=== PATIENT | male | born 1960 | race African-American/Black ===

== ENCOUNTER → 2021-01-07 13:01 | Outpatient (BNVA) | payer OTHER, SELFPAY | PROVIDERS: PCP Internal Medicine; Visit Provider Urology ==

== ENCOUNTER → 2021-03-19 12:24 | Outpatient (BNVA) | payer OTHER, SELFPAY | PROVIDERS: PCP Internal Medicine; Visit Provider Dietitian, Registered | DX: E66.9 Obesity, unspecified (principal); R73.03 Prediabetes | CPT/HCPCS: 97802 ==

== ENCOUNTER 2021-04-30 | Outpatient (REF) | payer OTHER, SELFPAY | END 2021-04-30 00:01 | disposition home or self-care (01) | LOC: CF | PROVIDERS: Visit Provider Dietitian, Registered | DX: R73.03 Prediabetes (principal); E66.9 Obesity, unspecified; I10 Essential (primary) hypertension; Z71.3 Dietary counseling and surveillance | CPT/HCPCS: 97803 ==

== ENCOUNTER → 2021-05-01 14:18 | Outpatient (BNVA) | payer OTHER, SELFPAY | PROVIDERS: PCP Internal Medicine; Visit Provider Dietitian, Registered | DX: R73.03 Prediabetes (principal); E66.9 Obesity, unspecified ==

== ENCOUNTER → 2021-05-01 14:18 | Outpatient (BNVA) | payer OTHER, SELFPAY | PROVIDERS: PCP Internal Medicine; Visit Provider Dietitian, Registered | DX: E66.9 Obesity, unspecified (principal); R73.03 Prediabetes | CPT/HCPCS: 97803 ==

== ENCOUNTER → 2021-06-18 12:58 | Outpatient (BNVA) | payer OTHER, SELFPAY | PROVIDERS: PCP Internal Medicine; Visit Provider Dietitian, Registered | DX: R73.03 Prediabetes (principal); E66.9 Obesity, unspecified | CPT/HCPCS: 97803 ==

== ENCOUNTER → 2021-08-03 10:31 | Outpatient (BNVA) | payer OTHER, SELFPAY | PROVIDERS: PCP Internal Medicine; Visit Provider Dietitian, Registered | DX: R73.03 Prediabetes (principal); E66.9 Obesity, unspecified | CPT/HCPCS: 97803 ==

== ENCOUNTER → 2021-08-12 15:54 | Outpatient (BNVA) | payer OTHER, SELFPAY | PROVIDERS: PCP Internal Medicine; Visit Provider Urology ==

== ENCOUNTER → 2021-09-07 10:40 | Outpatient (BNVA) | payer OTHER, SELFPAY | PROVIDERS: PCP Internal Medicine; Visit Provider Dietitian, Registered | DX: R73.03 Prediabetes (principal); E66.9 Obesity, unspecified; Z68.39 Body mass index [BMI] 39.0-39.9, adult; Z88.8 Allergy status to other drugs, medicaments and biological substances; Z91.030 Bee allergy status; Z91.013 Allergy to seafood | CPT/HCPCS: 97803 ==

== ENCOUNTER → 2021-10-14 10:58 | Outpatient (BNVA) | payer OTHER, SELFPAY | PROVIDERS: PCP Internal Medicine; Visit Provider Dietitian, Registered | DX: E66.9 Obesity, unspecified (principal); R73.03 Prediabetes; Z68.38 Body mass index [BMI] 38.0-38.9, adult | CPT/HCPCS: 97803 ==

== ENCOUNTER 2021-12-24 10:12 | Outpatient (REF) | payer OTHER, SELFPAY ==
--- NOTE | ~2021-12-24 | US_ITS ---
EXAMINATION: US RETROPERITONEAL LIMITED (RENAL ONLY) CLINICAL INFORMATION: Calculus of kidney. COMPARISON: MRI abdomen 07/04/2017. TECHNIQUE: Real-time imaging of the solitary left kidney. FINDINGS: RIGHT KIDNEY: Surgically absent. LEFT KIDNEY: 14.3 x 7.3 x 7.2 cm (SAG x AP x TRV). The kidney is normal in size, contour, and echogenicity. Renal cortical thickness is normal. No hydronephrosis. There are 3 simple appearing cysts measuring 2.3 cm in the mid pole, 1.6 cm in the upper pole and 1.7 cm in the lower pole. There is a 0.4 cm nonobstructive calculus in the mid pole. US/US renal BI IMPRESSION: Simple left renal cysts. Nonobstructive 0.4 cm calculus in the mid pole of the left kidney. Prior right nephrectomy.
== END 2021-12-24 10:13 | disposition home or self-care (01) ==
LOC: HO.HMGCX 10:12
PROVIDERS: Visit Provider Urology
DX: N20.0 Calculus of kidney (principal)
CPT/HCPCS: 76775

== ENCOUNTER → 2022-01-13 10:19 | Outpatient (BNVA) | payer OTHER, SELFPAY | PROVIDERS: PCP Internal Medicine; Visit Provider Dietitian, Registered | DX: E66.9 Obesity, unspecified (principal); R73.03 Prediabetes; Z68.39 Body mass index [BMI] 39.0-39.9, adult | CPT/HCPCS: 97803 ==

== ENCOUNTER 2022-02-02 12:41 | Outpatient (REF) | payer OTHER, SELFPAY ==
[2022-02-02 15:03] LABS: PSA,Total (Free>4and<10) 1.58 ng/mL (0.00-4.00)
== END 2022-02-02 12:42 | disposition home or self-care (01) ==
LOC: HO.LAB 12:41
PROVIDERS: PCP Internal Medicine; Visit Provider Urology
DX: N40.1 Benign prostatic hyperplasia with lower urinary tract symptoms (principal); Z12.5 Encounter for screening for malignant neoplasm of prostate
CPT/HCPCS: 36415; 84153

== ENCOUNTER → 2022-02-04 10:58 | Outpatient (BNVA) | payer OTHER, SELFPAY | PROVIDERS: PCP Internal Medicine; Visit Provider Urology | DX: C64.1 Malignant neoplasm of right kidney, except renal pelvis (principal); N20.0 Calculus of kidney; N52.9 Male erectile dysfunction, unspecified | CPT/HCPCS: Q3014 ==

== ENCOUNTER → 2022-04-14 12:21 | Outpatient (BNVA) | payer OTHER, SELFPAY | PROVIDERS: PCP Internal Medicine; Visit Provider Dietitian, Registered | DX: E66.9 Obesity, unspecified (principal); Z68.39 Body mass index [BMI] 39.0-39.9, adult; R73.03 Prediabetes; Z71.3 Dietary counseling and surveillance | CPT/HCPCS: 97803 ==

== ENCOUNTER 2022-07-13 10:28 | Outpatient (REF) | payer OTHER, SELFPAY ==
--- NOTE | ~2022-07-13 | US_ITS ---
EXAMINATION: US RETROPERITONEAL LIMITED (RENAL ONLY) CLINICAL INFORMATION: Malignant neoplasm of right kidney, except renal pelvis. COMPARISON: Renal ultrasound 12/24/2021. MRI abdomen 07/04/2017. TECHNIQUE: Real-time imaging of the kidneys. FINDINGS: RIGHT KIDNEY: Surgically absent. LEFT KIDNEY: 14.3 x 7.2 x 7.2 cm (SAG x AP x TRV). The kidney is normal in size, contour, and echogenicity. Renal cortical thickness is normal. There are 4 small cysts largest measuring 2.2 x 1.9 x 2.3 cm in the upper pole and 2.1 x 1.5 x 1.7 cm in the midpole. No renal mass or stone. No hydronephrosis. US/US renal BI IMPRESSION: Left renal cysts. Surgically absent right kidney.
== END 2022-07-13 10:29 | disposition home or self-care (01) ==
LOC: HO.US 10:28
PROVIDERS: Visit Provider Urology
DX: C64.1 Malignant neoplasm of right kidney, except renal pelvis (principal); N28.1 Cyst of kidney, acquired; E89.89 Other postprocedural endocrine and metabolic complications and disorders; Z90.5 Acquired absence of kidney
CPT/HCPCS: 76775

== ENCOUNTER → 2022-08-03 15:34 | Outpatient (BNVA) | payer OTHER, SELFPAY | PROVIDERS: PCP Internal Medicine; Visit Provider Urology | DX: C64.1 Malignant neoplasm of right kidney, except renal pelvis (principal); N20.0 Calculus of kidney | CPT/HCPCS: 99212 ==

== ENCOUNTER → 2023-04-27 10:06 | Outpatient (BNVA) | payer OTHER, SELFPAY | PROVIDERS: PCP Internal Medicine; Visit Provider Physician Assistant ==

== ENCOUNTER 2023-05-25 13:04 | Outpatient (AMB) | payer OTHER, SELFPAY ==
--- NOTE | 2023-05-25 13:06 | A.OFFVIS_ITS ---
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: No Allergies bee pollen [BEE STINGS] Allergy (Unknown, Verified 05/25/23 13:07) ANAPHYLAXIS lisinopril [LISINOPRIL] Adverse Reaction (Unknown, Verified 05/25/23 13:07) COUGH SEAFOOD Allergy (Unknown, Uncoded 02/04/22 11:00) ANAPHYLAXIS shrimp Allergy (Unknown, Uncoded 02/04/22 11:00) Unknown Medication List - Last Reconciled 05/25/23 by ANIVAL Dunlap amlodipine 5 mg PO DAILY amlodipine 2.5 mg PO DAILY betamethasone dipropionate 0.05% topical epinephrine 1 IM DIRECTED fluticasone propionate 50 mcg/actuation 1 spray intranasal BID hydrochlorothiazide 25 mg PO DAILY methocarbamol mg PO metoprolol succinate ER 100 mg PO DAILY prednisone 20 mg PO DAILY 5 days pyridoxine (vitamin B6) 100 mg PO DAILY 90 days sildenafil (pulm.hypertension) 20 mg PO DAILY 7 days tadalafil 5 mg PO DAILY PRN 90 days tamsulosin 0.4 mg PO DAILY 14 days HPI HPI Comments History of Present Illness Details Pt is here to start the [facility] surgical weight loss program. He heard about our program from his PCP. His goal is to lose weight and achieve a healthy lifestyle as well as to improve, if not resolve, obesity related medical conditions, including HTN. He reports first being concerned about his weight about 5 years ago, highest weight to date was 320. Current weight is 307.2 with a BMI of 40.5. He has tried multiple methods of weight loss including fad diets and exercise without permanent results. He lives with his son. He currently does not work Hx right kidney cancer s/p nephrectomy in 2018 with incisional hernia repair 2019. Followed by nephrology, Dr Montano He wakes at:?7 am, and goes to bed at?9 pm. Dinner is at 6 pm. Breakfast: 2 eggs and sausage or fruit AM snack: hot dog Lunch: fish and chips, razor grinder PM snack: sandwich Dinner: chicken, green beans, box of mac and cheese After dinner: skip Other snacks: cookies, chips, ice cream Liquids: 96 oz water, no soda, no juice Alcohol/marijuana/tobacco intake: cognac 750 mL bottle per week (3-4 drinks every 2-3 days), no cannabis or tobacco Exercise: [employer], treadmill GERD score: 2 HENRY score: 2 ESS score: 7 QOL score: 74 PFSH Medical History Benign prostatic hyperplasia with lower urinary tract symptoms Complex renal cyst Malignant neoplasm of right kidney Poor urinary stream Renal mass Surgical History Hx of hernia repair Hx of kidney removal Social History Alcohol intake: current Alcohol intake frequency: a few times a week Patient Tobacco Use Status: Never used Tobacco Review of Systems Const All systems reviewed & are unremarkable except as noted in HPI and below Physical Exam Vital Signs: Last Vital Signs Temp 96.9 F 05/25/23 13:11 Pulse 77 05/25/23 13:11 BP 155/88 H 05/25/23 13:11 Pulse Ox 98 05/25/23 13:11 Oxygen Delivery Method Room Air 05/25/23 13:11 BMI result Body Mass Index 40.5 Const General: cooperative, healthy appearing and no acute distress Orientation/consciousness: patient oriented x3 HEENT Head: Yes normal to inspection Ears: hearing grossly normal bilaterally General nose exam: Normal external nose present Face and sinus: Yes normal facial exam Eyes General: appearance normal, both eyes and all related structures Resp Effort & Inspection: normal respiratory effort Auscultation: clear to auscultation bilaterally Cardio Rate: regular rate Rhythm: regular rhythm Heart sounds: S1 normal heart sound present and S2 normal heart sound present GI Inspection: Yes normal to inspection, No distended, Yes incision (RLQ well healed incision) and Yes obesity Palpation (GI): Soft to palpation, nontender and no guarding Auscultation: normal bowel sounds Skin General skin exam: no rashes or lesions noted Neuro General: patient oriented x3 Extrem General: No edema Psych Appearance: grossly normal Mental Status: mental status grossly normal Speech and movement: Normal speech and movement present Affect: normal affect Attitude: cooperative Assessment & Plan Assessment & Plan (1) Morbid obesity: Code(s): E66.01 - Morbid (severe) obesity due to excess calories Plan: This is a?63 yo male who will start our SWL program to prepare for bariatric surgery.? Blood work, h pylori , CXR, ECG, Abd US and UGI have been ordered. He is being scheduled for RD and BH initial consultations. He will start SWL classes and watch the first three videos before his next appointment. ? Adequate sleep of 7-8 hours per night discussed, awakening at 7 am and going to bed at 9 pm ? Purchase body composition analyzer scale (Saranya woods or Solo recommended) and check weight weekly. The best time to do this is first thing in the morning after going to the bathroom. 1. Nutritional counseling: Be sure to careful read the number of scoops per shake Start with 3 Premier Protein shakes ([employer], [employer], [employer]) First shake (2 scoops in 8 oz low fat unsweetened almond milk or water) at 8am- 10am, Second shake (1 scoop in 8 oz unsweetened almond milk or water) at 11am-1pm 1 protein bar (Fulfil bars at [employer], [employer], or [employer]) at 3pm-5pm. Dinner at 6pm (10 forks of protein and 10 forks of salad/vegetables). Meal to include lean meat (beef, fish, pork, turkey, chicken), cooked vegetables or a salad with olive oil and/or fruits (berries, pears, apples, kiwi). Avoid salt, breads, potatoes, rice, pasta, desserts. Another shake with 1 scoop in 8 oz unsweetened almond milk at 7pm-9pm. Try to drink 64 oz of water daily and avoid soda and juices. Stop drinking alcohol ?2. Each shake would be drunk slowly, like coffee in a period of 2 hours. ?3. Cut each bar in 4 pieces and eat each piece in 30 min ?to make each bar last 2 hours. ?4. I emphasized the importance of measuring accurately the food portion and measure it carefully when serving the food on the plate ?5. The meal portions include 10 full-size forks of meat and 10 full-size forks of salad. You always eat the meat portion but you can replace up to half of the forks of salad/vegetables with rice, potatoes or pasta, or a fruit ?if you like. The less you do it the better weight loss will be. ?6. One full-size fork is what can be scooped on the fork without falling aside and not what can be bit with the fork. Use regular forks like those you find in a typical restaurant. ?7.? Please send me weight measurements as soon as possible and then once a week. Always include your diet and exercise plan. Alternatively come weekly at the office for weight checks and send me the measurements. ?8. Exercise counseling: Begin by watching a stretching for beginners video. Start slowly and begin to stretch your muscles. You should do this before and after each exercise session to prevent injury. Please return to [email or web address] [facility] gym near your home. Ask the business account manager or one of the trainers how to use the machines if you are unfamiliar with them. Start elliptical with a resistance of 2. Increase resistance by 1 every 3 min to your most comfortable resistance with a max resistance of 8. Reduce the resistance by 1 every 3 minutes back down to 2 and repeat cycles for 300 calories. Alternatively, start treadmill with a speed of 3.0 and incline of 0, increasing incline by 1 every 3 minutes to the highest comfortable level (max 6 for now) then decrease in the same fashion. Repeat process to a goal of 300 calories. Goal of 2000 calories burned or more weekly. You may also consider use of the stationary bike. The easiest would be to chose the fat-burn or interval training program on the machine and do this until you reach the 300 calorie goal. Alternatively, you can manually adjust the resistance in a similar fashion as mentioned above, (resistance of 2-8 with a goal speed of 12 mph). Tracking calories is essential. 9. Alternatively start walking outside daily, tracking calories with a goal of 300 calories per day, daily. You can download the teetee FIXO which can track your time, distance and calories while walking outside. You press start in the teetee when you start and then stop when you are finished. 10.? It is important to communicate by text weekly 11. Please get labs, EKG and chest X-Ray within 1 week. 12. Discussed and answered all questions regarding?obtained consent to participate in the [place] [facility]?Registry. 13. Please follow the diet plan exactly, without any change. If you do not like something about the plan or you feel hungry, you need to communicate with me so I can help you revise the plan. You should not change the plan yourself. Text me at [phone] 14. Goal is to lose at least 12 pounds in the first month 15. Goal is to lose 10% of your weight before surgery, which is about 30 lbs. Ultimate weight goal: 277 lbs before surgery Patient is morbidly obese and is not considered stable at this time.?I spent a total of 70 minutes reviewing/updating records, examining the patient and counseling the patient on weight management as detailed above. Orders: Orders Vitamin B12 and Folate Today E66.01 - Morbid (severe) obesity due to excess calories, I10 - Essential (primary) hypertension, R73.03 - Prediabetes Comprehensive Met. Panel Today E66.01 - Morbid (severe) obesity due to excess calories, I10 - Essential (primary) hypertension, R73.03 - Prediabetes C Reactive Protein Today E66.01 - Morbid (severe) obesity due to excess calories, I10 - Essential (primary) hypertension, R73.03 - Prediabetes Ferritin Today E66.01 - Morbid (severe) obesity due to excess calories, I10 - Essential (primary) hypertension, R73.03 - Prediabetes Hemoglobin A1c Today E66.01 - Morbid (severe) obesity due to excess calories, I10 - Essential (primary) hypertension, R73.03 - Prediabetes Insulin Today E66.01 - Morbid (severe) obesity due to excess calories, I10 - Essential (primary) hypertension, R73.03 - Prediabetes IRON PROFILE Today E66.01 - Morbid (severe) obesity due to excess calories, I10 - Essential (primary) hypertension, R73.03 - Prediabetes Lipid Panel Today E66.01 - Morbid (severe) obesity due to excess calories, I10 - Essential (primary) hypertension, R73.03 - Prediabetes PTHI Today E66.01 - Morbid (severe) obesity due to excess calories, I10 - Essential (primary) hypertension, R73.03 - Prediabetes TSH reflex Free T4 Today E66.01 - Morbid (severe) obesity due to excess calories, I10 - Essential (primary) hypertension, R73.03 - Prediabetes Vitamin A Today E66.01 - Morbid (severe) obesity due to excess calories, I10 - Essential (primary) hypertension, R73.03 - Prediabetes Vitamin B1 Today E66.01 - Morbid (severe) obesity due to excess calories, I10 - Essential (primary) hypertension, R73.03 - Prediabetes Vitamin D 25-OH Total Today E66.01 - Morbid (severe) obesity due to excess calories, I10 - Essential (primary) hypertension, R73.03 - Prediabetes Zinc Today E66.01 - Morbid (severe) obesity due to excess calories, I10 - Essential (primary) hypertension, R73.03 - Prediabetes ECG 12 lead EKG Today E66.01 - Morbid (severe) obesity due to excess calories, I10 - Essential (primary) hypertension, R73.03 - Prediabetes FL upper GI w air Today E66.01 - Morbid (severe) obesity due to excess calories, I10 - Essential (primary) hypertension, R73.03 - Prediabetes Complete Blood Count Auto Diff Today E66.01 - Morbid (severe) obesity due to excess calories, I10 - Essential (primary) hypertension, R73.03 - Prediabetes H Pylori Breath Test Today E66.01 - Morbid (severe) obesity due to excess calories, I10 - Essential (primary) hypertension, R73.03 - Prediabetes US abdomen comp w elastography Today E66.01 - Morbid (severe) obesity due to excess calories, I10 - Essential (primary) hypertension, R73.03 - Prediabetes XR chest 2V Today E66.01 - Morbid (severe) obesity due to excess calories, I10 - Essential (primary) hypertension, R73.03 - Prediabetes Referrals Behavioral Health Referral E66.01 - Morbid (severe) obesity due to excess calories, I10 - Essential (primary) hypertension, R73.03 - Prediabetes Nutrition/Dietitian Referral E66.01 - Morbid (severe) obesity due to excess calories, I10 - Essential (primary) hypertension, R73.03 - Prediabetes Coding Level of Care Code New Pt Level 5 (39914) Diagnoses Morbid obesity E66.01 Time Spent (min) 70
[2023-05-25 13:11] VITALS: BP 155/88; PULSE 77; TEMP 36.1; O2SAT 98; BMI 40.5
== END 2023-05-25 13:56 | disposition home or self-care (01) ==
PROVIDERS: PCP Internal Medicine; Visit Provider Physician Assistant Surgical
DX: E66.01 Morbid (severe) obesity due to excess calories (principal); Z68.41 Body mass index [BMI] 40.0-44.9, adult
CPT/HCPCS: 99205

== ENCOUNTER → 2023-05-25 13:04 | Outpatient (BNVA) | payer OTHER, SELFPAY | PROVIDERS: PCP Internal Medicine; Visit Provider Physician Assistant Surgical | DX: E66.01 Morbid (severe) obesity due to excess calories (principal); Z68.41 Body mass index [BMI] 40.0-44.9, adult | CPT/HCPCS: 99202 ==

== ENCOUNTER 2023-05-26 09:40 | Outpatient (REF) | payer OTHER, SELFPAY ==
--- NOTE | ~2023-05-26 | XR_ITS ---
EXAMINATION: XR CHEST CLINICAL INFORMATION: Morbid obesity. COMPARISON: None available. TECHNIQUE: 2 views of the chest were obtained. FINDINGS: There is no evidence of acute parenchymal disease, pneumothorax, or pleural effusion. Heart normal size. No evidence of pulmonary edema. There is bony bridging with calcification of the anterior longitudinal ligament throughout the majority of the thoracic spine consistent with DISH. XR/XR chest 2V IMPRESSION: No acute disease.
--- NOTE | 2023-05-26 09:47 | ECG_ITS ---
Test Reason : e66.01 Blood Pressure : / mmHG Vent. Rate : 066 BPM Atrial Rate : 066 BPM P-R Int : 236 ms QRS Dur : 096 ms QT Int : 426 ms P-R-T Axes : 018 -06 -12 degrees QTc Int : 446 ms Sinus rhythm with 1st degree A-V block Otherwise normal ECG When compared with ECG of 26-AUG-2017 09:54, IN interval has increased Referred By: Ruiz Armas Electronically Signed By:Marc Suárez
[2023-05-26 10:08] LABS: MANUAL DIFF FLAG NO
[2023-05-26 10:26] LABS: Basophils Percent Auto 1.1 % (0-2); Eosinophils Absolute Auto 0.1 X10*3/uL (0.0-0.4); Eosinophils Percent Auto 2.8 % (0-4); Hemoglobin 13.8 g/dl (14.0-18.0); Imm Gran Abs Auto 0.01 X10*3/uL (0.00-0.03); Imm Gran Pct Auto 0.3 % (0.0-0.4); Lymphocytes Absolute Auto 1.3 X10*3/uL (1.2-4.9); Lymphocytes Percent Auto 37.4 % (20-40); Mean Corpuscular HGB Conc 31.4 g/dl (31.0-36.0); Mean Corpuscular Hemoglobin 26.3 pg (27.0-33.0); Mean Corpuscular Volume 83.8 fL (80.0-98.0); Mean Platelet Volume 10.8 fL (9.4-12.4); Monocytes Absolute Auto 0.5 X10*3/uL (0.1-1.2); Monocytes Percent Auto 13.9 % (2-11); Neutrophils Absolute Auto 1.6 x10*3/uL (2.0-8.3); Neutrophils Percent Auto 44.5 % (45-73); Platelet Count 153 X10*3/uL (160-400); Red Blood Count 5.25 X10*6/uL (4.60-5.80); Red Cell Distribution Width 14.5 % (11.0-16.0); White Blood Count 3.5 X10*3/uL (4.8-10.8)
[2023-05-26 10:56] LABS: Estimated Average Glucose 128 mg/dL; Hemoglobin A1c % 6.1 %
[2023-05-26 11:05] LABS: Alanine Aminotransferase 32 U/L (0-40); Albumin Level 4.1 g/dL (3.5-5.0); Alkaline Phosphatase 67 U/L (39-117); Anion Gap 14 (12-20); Aspartate Amino Transferase 21 U/L (5-37); Bilirubin Total 0.7 mg/dL (0.0-1.0); Blood Urea Nitrogen 15 mg/dL (9-16); C Reactive Protein 0.36 mg/dL (< or = 0.50); Calcium 9.7 mg/dL (8.4-10.2); Carbon Dioxide 23 mmol/L (22-29); Chloride 106 mmol/L (96-108); Cholesterol 156 mg/dL; Estimated Glomerular Filt Rate 52; Glucose Random 109 mg/dL (60-115); HDL Cholesterol 36 mg/dL; Iron 91 mcg/dL (45-160); LDL Cholesterol Calculated 96 mg/dl; Percent Iron Saturation 33 % (15-50); Potassium 3.9 mmol/L (3.3-5.1); Sodium 139 mmol/L (135-145); Total Iron Binding Capacity 272 mcg/dL (228-428); Total Protein 7.7 g/dL (6.5-8.0); Triglycerides 120 mg/dL; Unsaturated Iron Binding 181 ug/dL
[2023-05-26 11:29] LABS: Ferritin 284 ng/mL (20-250); Insulin 30 uU/mL (2-29); TSH reflex Free T4 1.46 uIU/mL (0.32-4.0)
[2023-05-26 11:31] LABS: Folate 8.2 ng/mL (> or = 4.0); Vitamin B12 303 pg/mL (200-900)
[2023-05-28 13:19] LABS: H Pylori Breath Test Positive (Negative)
[2023-05-31 04:49] LABS: Calcium (PTHI) 9.5 mg/dL (8.6-10.3); PTHI 62 pg/mL (16-77)
[2023-05-31 19:39] LABS: Zinc 66 mcg/dL (60-130)
[2023-06-02 17:24] LABS: Vitamin A 54 mcg/dL (38-98)
[2023-06-03 11:12] LABS: Vitamin B1 8 nmol/L (8-30)
== END 2023-05-26 09:41 | disposition home or self-care (01) ==
LOC: HO.LAB 09:40
PROVIDERS: PCP Internal Medicine; Visit Provider Physician Assistant Surgical
DX: Z11.2 Encounter for screening for other bacterial diseases (principal); E66.01 Morbid (severe) obesity due to excess calories; I10 Essential (primary) hypertension; R73.03 Prediabetes
CPT/HCPCS: 36415; 71046; 80053; 80061; 82306; 82607; 82728; 82746; 83013; 83036; 83525; 83540; 83970; 84425; 84443; 84590; 84630; 85025; 86140; 93005; 99211

== ENCOUNTER → 2023-05-26 09:47 | Outpatient (BNV) | payer OTHER, SELFPAY | PROVIDERS: PCP Internal Medicine; Visit Provider Internal Medicine Cardiovascular Disease | DX: E66.01 Morbid (severe) obesity due to excess calories (principal) | CPT/HCPCS: 93010 ==

== ENCOUNTER → 2023-06-16 10:00 | Outpatient (REF) | payer OTHER, SELFPAY ==
--- NOTE | ~2023-06-16 | NM_ITS ---
Myocardial perfusion study Indication: Abnormal EKG to evaluate for myocardial ischemia Technique: The patient was brought in for a Lexiscan perfusion study on 06/16/2023. Patient performed low-level exercise and was injected 0.4 mg of Lexiscan intravenously. Within a minute of injection, 45 mCi of sestamibi was given intravenously. Images were obtained using the SPECT gamma camera interlaced with the gating device. Images were obtained in supine position. Resting perfusion study was performed on 06/20/2023. Patient was administered 45 mCi of sestamibi intravenously at rest. Images were then obtained in supine position. Images obtained with and without CT attenuation. Total DLP 183 mGy-cm. Images were processed with the software and compared side to side in short axis, horizontal long axis and vertical long axis views. Findings: Both rest and stress perfusion study are suboptimal due to intense subdiaphragmatic uptake interfering with inferior wall uptake. The stress perfusion study showed an air images show mildly to moderately reduced uptake in the inferior wall of the LV myocardium. Remainder of the LV myocardium is normally perfused. Attenuation corrected images show normal uptake of radiotracer in the inferior wall.. The gated study shows reduced LV systolic function with calculated LVEF of 38%. LV cavity is normal in size. The gated study shows normal systolic wall thickening and contraction of segments. Resting study shows no change in perfusion compared to stress perfusion images. Gating at rest reveals normal systolic wall motion with ejection fraction at 37%. The findings are consistent with no clear reversible defect suggestive of ischemia. Likely normal myocardial perfusion. NM/NM cardiolite stress test Impression: 1. Myocardial perfusion imaging study shows likely normal myocardial perfusion 2. Gated LVEF is 38%, although visually, LVEF appears to be normal range. Consider echocardiogram if not performed 3. Transient ischemic dilatation not present EKG is nondiagnostic for ischemia
--- NOTE | 2023-06-16 10:03 | CA_ITS ---
Acquisition Time: 2023-06-16 10:13:44 Total Exercise Time: 00:06:11 Test Indications: PREOP Medications: SEE H Protocol: GRANT Max HR: 123 BPM 77% of Pred: 158 BPM Max BP: 198/090 mmHG Max Work Load: 7.2 METS Exercise stress test exercise 6 min 11 sec of Brucde protocol achieving 72% with request to stop due to not being able to keep up with treadmill without anginal symptoms, with isolated PACs avd PCVs, with normotesnive response to exercise, without EKG changes at achieved workload. Test changed to pharmacolgoical stress with Lexiscan while patient sitting and kicking his legs, without anginal symptoms, without arrhytmias, with normotensive response to injection, with non-diagsostic EKGs. Nuclear image pending. Test reviewed with Dr. Suárez. Referred By: Ruiz Armas Overread By: SHANITA JOHNSON
== END ==
LOC: HO.CARD 10:00
PROVIDERS: PCP Internal Medicine; Visit Provider Physician Assistant Surgical
DX: R94.31 Abnormal electrocardiogram [ECG] [EKG] (principal)
CPT/HCPCS: 78452; 93017; A9500; J0280; J2785

== ENCOUNTER → 2023-06-16 10:23 | Outpatient (BNV) | payer OTHER, SELFPAY | PROVIDERS: PCP Internal Medicine; Visit Provider Internal Medicine Cardiovascular Disease | DX: R94.31 Abnormal electrocardiogram [ECG] [EKG] (principal) | CPT/HCPCS: 78452; 93016; 93018 ==

== ENCOUNTER 2023-06-20 08:34 | Outpatient (AMB) | payer OTHER, SELFPAY ==
--- NOTE | 2023-06-20 13:27 | A.OFFVIS_ITS ---
Intake VS Expanded 06/20/23 13:52 Height 6 ft 1 in Weight 308 lb BMI 40.6 Intake Visit Reasons: TV Consult/Transfer Ruiz 1ST Allergies bee pollen [BEE STINGS] Allergy (Unknown, Verified 06/20/23 13:27) ANAPHYLAXIS lisinopril [LISINOPRIL] Adverse Reaction (Unknown, Verified 06/20/23 13:27) COUGH SEAFOOD Allergy (Unknown, Uncoded 06/20/23 13:27) ANAPHYLAXIS shrimp Allergy (Unknown, Uncoded 06/20/23 13:27) Unknown Medication List - Last Reconciled 06/20/23 by Neno Ayala MD amlodipine 5 mg PO DAILY amlodipine 2.5 mg PO DAILY betamethasone dipropionate 0.05% topical cholecalciferol (vitamin D3) 125 mcg PO DAILY 90 days cyanocobalamin (vitamin B-12) 500 mcg PO DAILY 90 days epinephrine 1 IM DIRECTED fluticasone propionate 50 mcg/actuation 1 spray intranasal BID hydrochlorothiazide 25 mg PO DAILY methocarbamol mg PO metoprolol succinate ER 100 mg PO DAILY pyridoxine (vitamin B6) 100 mg PO DAILY 90 days tadalafil 5 mg PO DAILY PRN 90 days tamsulosin 0.4 mg PO DAILY 14 days HPI TV Consult/Transfer Ruiz 1ST HPI Details Start time: 1.14pm, End time: 2.04pm ?I spent 45 minutes speaking with the patient on the phone plus an additional 5 minutes reviewing and updating records for a total of 50 minutes HPI Comments History of Present Illness Details Has not started the process yet [facility] Medical History (Updated 06/20/23 @ 14:03 by Neno Ayala MD) Benign prostatic hyperplasia with lower urinary tract symptoms Complex renal cyst Malignant neoplasm of right kidney Poor urinary stream Renal mass Surgical History Hx of hernia repair Hx of kidney removal Social History Alcohol intake: current Alcohol intake frequency: a few times a week Patient Tobacco Use Status: Never used Tobacco Assessment & Plan Assessment & Plan (1) Morbid obesity: Code(s): E66.01 - Morbid (severe) obesity due to excess calories Plan: 1.? Plan for lap sleeve gastrectomy. If diaphragmatic or ventral hernias are present at time of surgery, these will be repaired laparoscopically as well. 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 I emphasized the importance of close follow-up, adherence to instructions and good communication. 2. Nutritional counseling. Start with one powdered Premier protein shake (ONE scoop in 8oz low fat unsweetened almond milk) at 9am-11am, another Premier protein shake with TWO scoops in 8oz almond milk at 12pm-2pm, 1 protein bar (Zone Perfect protein bars, buy at [employer], ?[employer], [employer], or [employer]) at 3pm-5pm, dinner at 6pm (12 forks of protein and 12 forks of salad/vegetables) AND one more protein bar after dinner at 7pm-9pm. Meal to include lean meat (beef, fish, pork, turkey, chicken), or citizen [place] yogurt, or egg whites, or beans with a salad with olive oil and fruits (berries, pears, apples, kiwi). Avoid salt, breads, potatoes, rice, pasta, desserts. 3. Each shake would be drunk slowly, like coffee in a period of 2 hours. 4. Cut each bar in 4 pieces and eat each piece in 30min ?to make each bar last 2 hours. 5. I emphasized the importance of measuring accurately the food portion and measure it when serving the food in plate 6. The meal portions include 12 full-size forks of meat and 12 full-size forks of salad. You always eat the meat portion but you can replace up to 6 forks for salad/vegetables with rice, potatoes or pasta, or a fruit ?if you like. The less you do it the better weight loss will be. 7. One full-size fork is what it can be scooped on the fork without falling aside and not what can be bit with the fork. Use regular forks like those you find in a typical restaurant. 8.? Please buy a body composition scale as soon as possible and send me weight measurements and then once a week. Always include your diet and exercise plan. 9. Start Elliptical with an incline of 2.0 and resistance of 4.0. Increase resistance by 1 every 3 min to a max resistance of 10.0, and repeat cycles for 400 calories. OR 10. Start treadmill with an incline of 2.0 and speed of 3.5. Increase incline by 1 every 3 min to a max incline of 8.0, stay 3min at 8.0 and then return to 2.0 and repeat same steps until calorie goal is met. Goal is to burn 2000 calories per week on exercise, which means either 300 calories daily, or 400 calories 5 days per week, or 500 calories 4 days per week, or 650 calories 3 days per week. Start also weight exercises with 20-30lbs for chest/shoulders/abdomen and 40- 50lbs for thighs doing 2 sets of 15 repetitions each. 11. We will arrange for you to have a colonoscopy 12. Goal is to lose at least 1.5-2lbs per week 13. Goal to lose 10% of your weight before surgery, which is about 30lbs. Ultimate weight goal: 278lbs before surgery 14. Please follow the diet plan exactly without any change. If you don't like something about the plan or you feel hungry you need to communicate with me so I can help you revise the plan. You should not change the plan yourself. (2) HTN (hypertension): Code(s): I10 - Essential (primary) hypertension (3) Erectile dysfunction: Code(s): N52.9 - Male erectile dysfunction, unspecified Orders: Referrals Gastroenterology Referral D64.9 - Anemia, unspecified Telehealth Telehealth Location of provider rendering services: practice address Location of patient: address on file Patient Identification confirmed using: Name, : Yes Telehealth method: voice only Patient verbally consented to treatment: Yes Patient verbally consented to billing insurance company: Yes Patient informed of any privacy concerns related to visit: Yes Minutes spent on Phone/Video with Pt.: 50 Coding Level of Care Code Tele Est Pt Level 5 (54222) Diagnoses Morbid obesity E66.01 HTN (hypertension) I10 Erectile dysfunction N52.9 Time Spent (min) 50
[2023-06-20 13:52] VITALS: BMI 40.6
== END 2023-06-20 14:05 | disposition home or self-care (01) ==
PROVIDERS: PCP Internal Medicine; Visit Provider Surgery
DX: E66.01 Morbid (severe) obesity due to excess calories (principal); Z68.41 Body mass index [BMI] 40.0-44.9, adult; I10 Essential (primary) hypertension; N52.9 Male erectile dysfunction, unspecified
CPT/HCPCS: 99215

== ENCOUNTER → 2023-06-20 08:34 | Outpatient (BNVA) | payer OTHER, SELFPAY | PROVIDERS: PCP Internal Medicine; Visit Provider Surgery ==

== ENCOUNTER 2023-06-21 11:57 | Outpatient (AMB) | payer OTHER, SELFPAY ==
--- NOTE | 2023-06-21 11:37 | A.OFFWM_ITS ---
Intake Intake Visit Reasons: VIDEO BH Intake Allergies bee pollen [BEE STINGS] Allergy (Unknown, Verified 06/20/23 13:27) ANAPHYLAXIS lisinopril [LISINOPRIL] Adverse Reaction (Unknown, Verified 06/20/23 13:27) COUGH SEAFOOD Allergy (Unknown, Uncoded 06/20/23 13:27) ANAPHYLAXIS shrimp Allergy (Unknown, Uncoded 06/20/23 13:27) Unknown [facility] Medical History Benign prostatic hyperplasia with lower urinary tract symptoms Complex renal cyst Malignant neoplasm of right kidney Poor urinary stream Renal mass Surgical History Hx of hernia repair Hx of kidney removal Social History Alcohol intake: current Alcohol intake frequency: a few times a week Patient Tobacco Use Status: Never used Tobacco Behavioral Health Assessment Weight Management Therapy Therapy Notes Details Pt is looking to have weight loss surgery to help improve his health and quality of life. Pt denied any mental health treatment or hx of depression or anxiety. He denied any problems with drugs or alcohol. Presenting Concerns Referral Source provider Reason for referral weight loss surgery evaluation Precipitating Event obesity Living Situation Current Living Situation Relative's/Guardian's Prasad At risk of losing current housing? No Satisfied with current living situation? Yes Comments Patient lives with his adult son. Food/Weight/Diet Expectations of change weight loss and maintenance History/Relationship with food He reported that he would eat what he likes, fruits, steaks, eating out, desserts. Also would skip meals and eat when he is not hungry. In the distant past he would eat past the point of being full. History/Relationship with weight He reported struggling with his weight for the past several years. Pt stated that he carries most of his weight in his midsection. History/Relationship with dieting WW, eating less Binge Eating Do you frequently eat large amounts of food in short periods of time, not feeling physically hungry? No Do you feel out of control when you eat a large amount of food in a short period of time? No Do you eat large amounts of food rapidly and typically alone? No Night Eating Do you wake up at least once during the night to eat? No If you wake up in the night, do you find that it is necessary to eat something in order to fall back asleep? No Do you have little or no appetite in the morning and feel very hungry in the evening, often overeating between dinner and when you go to bed? Yes Social History Family history and relationship Pt has three adult children, he is and currently engaged. 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 no issues known Education Preferred learning style Auditory, Verbal, Written, Learn by doing and Visual Currently enrolled in educational program? No Interested in further educational program? No Educational Interests/Skills patient drives [employer], exercise Employment Employment Status [employer] Wants help to find employment? 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 None Service Service? No Mental Health and Addiction Treatment Current/Past substance abuse? No Current/Past addictive behavior concerns? No Medical and Physical Health Summary Physical exam in the last year? Yes Pain Screening Current pain? No Pain in the last few months? No Medications Is the patient compliant with medications? Yes Does the patient have Spears Guardian in place? No Does the patient use complimentary health approaches? No Trauma/Abuse History History of trauma? No Questionnaires PHQ-9 Over the last 2 weeks, how often have you been bothered by any of the following problems? 1. Little interest or pleasure in doing things: not at all 2. Feeling down, depressed, or hopeless: not at all 3. Trouble falling or staying asleep, or sleeping too much: several days 4. Feeling tired or having little energy: several days 5. Poor appetite or overeating: several days 6. Feeling bad about yourself - or that you are a failure or have let yourself or your family down: not at all 7. Trouble concentrating on things, such as reading the newspaper or watching television: not at all 8. Moving or speaking so slowly that other people could have noticed. Or the opposite - being so fidgety or restless that you have been moving around a lot more than usual: not at all 9. Thoughts that you would be better off or of hurting yourself in some way: not at all Total score: 3 Depression Screening Interpretation: Negative Source: Developed by Drs. Abel Dangelo, Maureen Brewer, Kiran Hallman and colleagues, with an educational rossana from [employer]. Binge Eating Scale Group 1 A. I don't feel self-conscious about my wt. or body size when I'm with others. B. I feel concerned about how I look to others, but it normally does not make me fell disappointed with myself C. I do get self-conscious about my appearance and wt. which makes me feel disappointed in myself. D. I feel very self-conscious about my wt. and frequently I feel intense shame and disgust for myself. I try to avoid social contacts because of my self-consciousness. Response Group 1: B Group 2 A. I don't have any difficulty eating slowly in the proper manner. B. Although I seem to gobble down foods, I don't end up feeling stuffed because of eating to much. C. At times, I tend to eat quickly and then, I feel uncomfortably full aft erwards. D. I have the habit of bolting down my food, without really chewing it. When this happens I usually feel uncomfortably stuffed because I've eaten to much. Response Group 2: A Group 3 A. I feel capable to control my eating urges when I want to. B. I feel like I have failed to control my eating more than the average person. C. I feel utterly helpless when it comes to feeling in control of my eating urges. D. Because I feel so helpless about controlling my eating I have become very desperate about trying to get control. Response Group 3: A Group 4 A. I don't have the habit of eating when I'm bored. B. I sometimes eat when I'm bored, but often I'm able to get busy and get my mind off food. C. I have a regular habit of eating when I'm bored, but occasionally, I can use some other activity to get my mind off eating. D. I have a strong habit of eating when I'm bored. Nothing seems to help me breath the habit. Response Group 4: D Group 5 A. I'm usually physically hungry when I eat something. B. Occasionally, I eat something on impulse even though I really am not hungry. C. I have the regular habit of eating foods, that I might not really enjoy, to satisfy a hungry feeling even though physically, I don't need the food. D. Although I'm not physically hungry, I get a hungry feeling in my mouth that only seems to be satisfied when I eat a food, like sandwich, that fills my mouth. Sometimes, when I eat the food to satisfy my mouth hunger, I then spit the food out so I won't gain weight. Response Group 5: B Group 6 A. I don't feel any guilt or self-hate after I overeat. B. After I overeat, occasionally I feel guilt or self-hate. C. Almost all the time I experience strong guilt or self-hate after I overeat. Response Group 6: A Group 7 A. I don't lose total control of my eating when dieting even after periods when I overeat. B. Sometimes when I eat a forbidden food on a diet, I feel like I blew it and eat even more. C. Frequently, I have the habit of saying to myself, I've blown it now, why not go all the way, when I overeat on a diet. When that happens I eat more. D. I have a regular habit of starting a strict diets for myself but I break the diets by going on an eating binge. My life seems to be either a feast or famine. Response Group 7: A Group 8 A. I rarely eat so much food that I feel uncomfortably stuffed afterwards. B. Usually about once a month, I each such a quantity of food, I end up feeling very stuffed. C. I have regular periods during the month when I eat large amounts of food, either at mealtime or at snacks. D. I eat so much food that I regularly feel quite uncomfortable after eating and sometimes a bit nauseous. Response Group 8: A Group 9 A. My level of calorie intake does not go up very high or go down very low on a regular basis. B. Sometimes after I overeat, I will try to reduce my caloric intake to almost nothing to compensate for the excess calories I've eaten. C. I have a regular habit of overeating during the night. It seems that my routine is not to be hungry in the morning but overeat in the evening. D. In my adult years, I have had week-long periods where I practically starve myself. This follows periods when I overeat. It seems I live a life of either feast or famine. Response Group 9: A Group 10 A. I usually am able to stop eating when I want to. I know when enough is enough. B. Every so often, I experience a compulsion to eat which I can't seem to control. C. Frequently, I experience strong urges to eat which I seem unable to control, but at other times I can control my eating urges. D. I feel incapable of controlling urges to eat. I have a fear of not being able to stop eating voluntarily. Response Group 10: A Group 11 A. I don't have any problem stopping eating when I feel full. B. I usually can stop eating when I feel full but occasionally overeat leaving me feeling uncomfortably stuffed. C. I have a problem stopping eating once I start and usually I feel uncomfortably stuffed after I eat a meal. D. Because I have a problem not being able to stop eating when I want, I sometimes have to induce vomiting to relieve my stuffed feeling. Response Group 11: A Group 12 A. I seem to eat just as much when I'm with others, Family social gatherings as when I'm by myself. B. Sometimes, when I'm with other persons, I don't eat as much as I want to eat because I'm self-conscious about my eating. C. Frequently, I eat only a small amount of food when others are present, because I'm very embarrassed about my eating. D. I feel so ashamed about overeating that I pick times to overeat when I know no one will see me. I feel like a closet eater. Response Group 12: A Group 13 A. I eat three meals a day with only an occasional between meal snack. B. I eat 3 meals a day, but I also normally snack between meals. C. When I am snacking heavily, I get in the habit of skipping regular meals. D. There are regular periods when I seem to be continually eating, with no planned meals. Response Group 13: C Group 14 A. I don't think much about trying to control unwanted eating urges. B. At least some of the time, I feel my thoughts are pre-occupied with trying to control my eating urges. C. I feel that frequently I spend much time thinking about how much I ate or about trying not to eat anymore. D. It seems to me that most of my waking hours are pre-occupied by thoughts about eating or not eating. I feel like I'm constantly struggling not to eat. Response Group 14: D Group 15 A. I don't think about food a great deal. B. I have strong craving for food but they last only for brief periods of time. C. I have days when I can't seem to think about anything else but food. D. Most of my days seem to be pre-occupied with thoughts about food. I feel like I live to eat. Response Group 15: D Group 16 A. I usually know whether or not I'm physically hungry. I take the right portion of food to satisfy me. B. Occasionally, I feel uncertain about knowing whether or not I'm physically hungry. A these times it's hard to know how much food I should take to satisfy me. C. Even though I might know how many calories I should eat, I don't have any idea what is a normal amount of food for me. Response Group 16: A Binge Eating Score: 13 Score less than 17 Minimal Risk Score between 18-26 Moderate Risk Score between 27-46 High Risk Assessment & Plan Assessment & Plan (1) Adjustment disorder, unspecified: Code(s): F43.20 - Adjustment disorder, unspecified (2) Obesity: Code(s): E66.9 - Obesity, unspecified Plan Patient has not yet started the program recommendations. He has no mental health history or other concerning barriers. Patient is cleared for surgery from a mental health perscpective. Telehealth Telehealth Location of provider rendering services: other Location of patient: other Patient Identification confirmed using: Name, : Yes Telehealth method: voice only Minutes spent on Phone/Video with Pt.: 45 Coding Level of Care Code Tele Psy Diag Eval (19586) Diagnoses Adjustment disorder, unspecified F43.20 Obesity E66.9 Time Spent (min) 45
== END 2023-06-21 12:01 | disposition home or self-care (01) ==
LOC: HO.HBST 11:57
PROVIDERS: PCP Internal Medicine; Visit Provider Counselor Mental Health
DX: F43.20 Adjustment disorder, unspecified (principal); E66.01 Morbid (severe) obesity due to excess calories; Z68.41 Body mass index [BMI] 40.0-44.9, adult
CPT/HCPCS: 90791

== ENCOUNTER → 2023-06-21 11:57 | Outpatient (BNVA) | payer OTHER, SELFPAY | PROVIDERS: PCP Internal Medicine; Visit Provider Counselor Mental Health ==

== ENCOUNTER 2023-06-27 09:59 | Outpatient (AMB) | payer OTHER, SELFPAY ==
--- NOTE | 2023-06-27 10:08 | A.OFFVIS_ITS ---
Intake VS Expanded 06/27/23 10:41 Height 6 ft 1 in Weight 299 lb BMI 39.4 Intake Visit Reasons: (OV) Initial Nutrition [facility] Risk Assessment Consultant Required: No Allergies bee pollen [BEE STINGS] Allergy (Unknown, Verified 06/20/23 13:27) ANAPHYLAXIS lisinopril [LISINOPRIL] Adverse Reaction (Unknown, Verified 06/20/23 13:27) COUGH SEAFOOD Allergy (Unknown, Uncoded 06/20/23 13:27) ANAPHYLAXIS shrimp Allergy (Unknown, Uncoded 06/20/23 13:27) Unknown HPI Nutrition Presentation Reason for consult elevated BMI Diet Assmnt Details Started last week 1 scoop premier powder with 8oz almond milk - reports getting very expensive second shake with 2 scoops powder in 8oz almond milk 1 bar - atkins dinner - kiddy portion - rice, gravy, steak and cabbage Pt has a lot of questions about what he can/cannot eat. [facility] online classes: Pt is going on a cruise in a week or so. doesn't have a plan to maintain healthy eating habits. we discussed this today Previous weight loss methods attempted Pt previously meeting with Dany GARCIA several times, but was unable to make sig dietary changes Dietary counseling reduction Who buys your food self Who prepares/cooks your food self Diagnosis Nutrition problem #1 overweight/obesity As related to (etiology) #1 excess energy intake and physical inactivity As evidenced by (sign/symptom) #1 high BMI Nutrition problem #2 not ready diet/lifestyle As related to (etiology) #2 unwilling to learn/apply As evidenced by (sign/symptom) #2 prior fail - chg behavior and knowledge deficit of diet Monitoring/Goals Nutrition problem monitoring total energy intake, level of knowledge/skill, total PRO intake, total CHO intake, weight and oral fluids Outcome progress progressing Learning/Education Readiness to learn fair Stages of change action Educational materials provided Yes Most Recent Diabetes Results: Cholesterol 156 mg/dL 05/26/23 HDL Cholesterol 36 mg/dL 05/26/23 Triglycerides 120 mg/dL 05/26/23 Creatinine 1.38 mg/dL (0.5-1.4) 05/26/23 Blood Urea Nitrogen 15 mg/dL (9-16) 05/26/23 Sodium 139 mmol/L (135-145) 05/26/23 Potassium 3.9 mmol/L (3.3-5.1) 05/26/23 Chloride 106 mmol/L (96-108) 05/26/23 Carbon Dioxide 23 mmol/L (22-29) 05/26/23 Calcium 9.7 mg/dL (8.4-10.2) 05/26/23 AST 21 U/L (5-37) 05/26/23 ALT 32 U/L (0-40) 05/26/23 Total Protein 7.7 g/dL (6.5-8.0) 05/26/23 Albumin 4.1 g/dL (3.5-5.0) 05/26/23 PFSH Medical History Benign prostatic hyperplasia with lower urinary tract symptoms Complex renal cyst Malignant neoplasm of right kidney Poor urinary stream Renal mass Surgical History Hx of hernia repair Hx of kidney removal Social History Alcohol intake: current Alcohol intake frequency: a few times a week Patient Tobacco Use Status: Never used Tobacco Assessment & Plan Assessment & Plan (1) Obesity (BMI 30-39.9): Code(s): E66.9 - Obesity, unspecified Patient Instructions: unsure if pt is ready to make the changes necessary for bariatric surgery. Is doing well now, but has been with the plan for 1 week only. Would like to see pt in 6 weeks to monitor adherence. will be seen again 08/05 10am in office - pt pref. He will complete online classes by then. Coding Level of Care Code Nutr Indiv Intake (42161) Diagnoses Obesity (BMI 30-39.9) E66.9 Time Spent (min) 45 Comment office
[2023-06-27 10:41] VITALS: BMI 39.4
== END 2023-06-27 10:41 | disposition home or self-care (01) ==
PROVIDERS: PCP Internal Medicine; Visit Provider Dietitian, Registered
DX: E66.9 Obesity, unspecified (principal)

== ENCOUNTER → 2023-06-27 09:59 | Outpatient (BNVA) | payer OTHER, SELFPAY | PROVIDERS: PCP Internal Medicine; Visit Provider Dietitian, Registered | DX: E66.9 Obesity, unspecified (principal); Z68.39 Body mass index [BMI] 39.0-39.9, adult; Z71.3 Dietary counseling and surveillance | CPT/HCPCS: 97802 ==

== ENCOUNTER 2023-07-19 10:06 | Outpatient (REF) | payer OTHER, SELFPAY ==
--- NOTE | ~2023-07-19 | US_ITS ---
EXAMINATION: US RETROPERITONEAL LIMITED (RENAL) CLINICAL INFORMATION: Malignant neoplasm of right kidney. Nephrolithiasis. COMPARISON: Renal ultrasound 07/13/2022 and 12/24/2021. MRI abdomen 07/04/2017. TECHNIQUE: Real-time imaging of the kidneys and bladder. FINDINGS: RIGHT KIDNEY: Surgically absent. LEFT KIDNEY: 15.6 x 7.8 x 6.3 cm (SAG x AP x TRV). The kidney is normal in size, contour, and echogenicity. Renal cortical thickness is normal. No renal calculi or hydronephrosis. 5 benign Bosniak class I renal cysts are noted, the largest measuring 2.5 cm in the upper pole. These require no additional imaging or follow up. No solid renal masses are seen. Incidental note made of a tiny cortical calcification in the left mid kidney. US/US renal LT IMPRESSION: 1. Status post right nephrectomy. 2. Benign Bosniak class I left renal cysts which require no further imaging or follow up.
== END 2023-07-19 10:07 | disposition home or self-care (01) ==
LOC: HO.US 10:06
PROVIDERS: PCP Internal Medicine; Visit Provider Urology
DX: C64.1 Malignant neoplasm of right kidney, except renal pelvis (principal); E66.9 Obesity, unspecified; Z71.3 Dietary counseling and surveillance; Z79.899 Other long term (current) drug therapy
CPT/HCPCS: 76775; 99212

== ENCOUNTER 2023-07-19 12:07 | Outpatient (AMB) | payer OTHER, SELFPAY ==
--- NOTE | 2023-07-19 12:13 | MHC.OFFVISWM ---
Intake VS Expanded 07/19/23 12:27 Height 6 ft 1 in Weight 292 lb 12.8 oz BMI 38.6 BP 132/73 Blood Pressure Location Rt brachial Blood Pressure Position Sitting Pulse 72 Pulse Source Pulse Oximeter Temp 96.3 F L Temperature Source Tympanic Pulse Oximetry 96 Oxygen Delivery Method Room Air Body Fat 113.6 Body Fat Percentage 38.8 Free Fat Mass 179.2 Muscle Mass 170.4 Visceral Mass 24.0 Water Mass 119.8 BMR 2,493 Intake Visit Reasons: (OV) F/U SWL & H. Pylori Social Psychologist Required: No Allergies bee pollen [BEE STINGS] Allergy (Unknown, Verified 07/19/23 12:19) ANAPHYLAXIS lisinopril [LISINOPRIL] Adverse Reaction (Unknown, Verified 07/19/23 12:19) COUGH SEAFOOD Allergy (Unknown, Uncoded 07/19/23 12:19) ANAPHYLAXIS shrimp Allergy (Unknown, Uncoded 07/19/23 12:19) Unknown Medication List - Last Reconciled 07/19/23 by ANIVAL Dunlap amlodipine 5 mg PO DAILY amlodipine 2.5 mg PO DAILY betamethasone dipropionate 0.05% topical cholecalciferol (vitamin D3) 125 mcg PO DAILY 90 days cyanocobalamin (vitamin B-12) 500 mcg PO DAILY 90 days epinephrine 1 IM DIRECTED fluticasone propionate 50 mcg/actuation 1 spray intranasal BID hydrochlorothiazide 25 mg PO DAILY methocarbamol mg PO metoprolol succinate ER 100 mg PO DAILY pyridoxine (vitamin B6) 100 mg PO DAILY 90 days tadalafil 5 mg PO DAILY PRN 90 days tamsulosin 0.4 mg PO DAILY 14 days HPI HPI Comments History of Present Illness Details The patient is a pleasant 63 year old male who returns to the clinic for pre-operative surgical weight loss management. They were last seen in the office on 06/20/23, recorded weight at that time was 308 pounds, with a BMI of 40.6. Today's weight is 292.8 pounds and BMI is 38.6. There has been a weight loss of 14.4 pounds since initiating the surgical weight loss program on 05/25/23 with a total body weight loss of 4.6 %. Pre op work up completed as follows: SWL classes:? 02/12 BH appts: cleared-06/21/23 ? ? RD appts: f/u 08/05/23 Labs: 05/26/23-low D, B12:303 H. pylori: 05/25/23-pos CXR: 05/26/23-nad EK05/26/23 1st degree AV block-06/20/23 nuc stress likely normal, consider echo, ordered 06/28/23 ABD U/S: not yet done UGI: not yet done The patient reports he has changed his eating habits but has not exercised. Current meal plan includes: one powdered Premier protein shake (ONE scoop in 8oz low fat unsweetened almond milk) at 9am-11am, another Premier protein shake with TWO scoops in 8oz almond milk at 12pm-2pm, 1 protein bar ([employer] protein bars, buy at [employer], [employer], [facility], or [employer]) at 3pm-5pm, dinner at 6pm (12 forks of protein and 12 forks of salad/vegetables) AND one more protein bar after dinner at 7pm-9pm. Drinking 64-80 oz of water Current exercise plan includes: none for the past week, previously 4 days per week at 200 [address]aly doing treadmill PFSH Medical History Poor urinary stream Benign prostatic hyperplasia with lower urinary tract symptoms Malignant neoplasm of right kidney Renal mass Complex renal cyst Surgical History Hx of hernia repair Hx of kidney removal Social History Alcohol intake: current Alcohol intake frequency: a few times a week Patient Tobacco Use Status: Never used Tobacco Physical Exam Const General: healthy appearing and no acute distress Resp Effort & Inspection: normal respiratory effort Auscultation: clear to auscultation bilaterally Cardio Rate: regular rate Rhythm: regular rhythm GI Auscultation: normal bowel sounds Extrem General: Yes normal to inspection Assessment & Plan Assessment & Plan (1) Obesity: Code(s): E66.9 - Obesity, unspecified Plan: change meal plan to one powdered Premier protein shake (ONE scoop in 8oz low fat unsweetened almond milk) at 9am-11am, another Premier protein shake with TWO scoops in 8oz almond milk at 12pm-2pm, 1 protein bar ([employer] protein bars, buy at [employer], ?[employer], [facility], or [employer]) at 3pm-5pm, dinner at 6pm (10 forks of protein and 10 forks of salad/vegetables) AND one more protein bar after dinner at 7pm-9pm. Change exercise to treadmill speed 3 incline 0-4 rtc 3 weeks, retest H Pylori, just ate, reminded not to do that prior to next appt Coding Level of Care Code Est Pt Level 3 (05556) Diagnoses Obesity E66.9
[2023-07-19 12:27] VITALS: BP 132/73; PULSE 72; TEMP 35.7; O2SAT 96; BMI 38.6
== END 2023-07-19 12:40 | disposition home or self-care (01) ==
PROVIDERS: PCP Internal Medicine; Visit Provider Physician Assistant Surgical
DX: E66.9 Obesity, unspecified (principal); Z68.38 Body mass index [BMI] 38.0-38.9, adult
CPT/HCPCS: 99213

== ENCOUNTER → 2023-07-28 10:05 | Outpatient (REF) | payer OTHER, SELFPAY ==
--- NOTE | 2023-07-28 10:07 | CA_ITS ---
Transthoracic Echocardiogram Patient (Last, First, Middle): Ruiz Pierson, Gender: Male Date of : 1960 Age: 63 Procedure Date: 07/28/2023 Procedure Type: Transthoracic Echocardiogram Location: OP Height: 185.42 cm Weight: 132.45 kg BSA: 2.53 m2 Heart Rate: 70 bpm BP: 140 / 90 mmHg Acoustical Material Worker: ALICIA Referring MD: Ruiz FLORIAN Symptoms: R94.31 - Abnormal electrocardiogram [ECG] [EKG] Study Quality: Adequate/w Contrast ECG Rhythm: Sinus Conclusions: - The left ventricular systolic function is hyperdynamic. The visually estimated ejection fraction is >70%. - No obvious valvular pathology seen on this study. - There is mild dilatation of the sinuses of Valsalva measuring 4.30 cm and mild dilatation of the ascending aorta measuring 4.00 cm. Findings Procedure Information Contrast agent, definity, is being given per protocol without apparent complications. Left Ventricle Normal left ventricular cavity size. There is mildly increased left ventricular wall thickness. The left ventricular systolic function is hyperdynamic. The visually estimated ejection fraction is >70%. There is no evidence of regional wall motion abnormalities. Diastolic function is normal for age. Right Ventricle Normal right ventricular cavity size and systolic function. Atria Both atria are normal in size. Aortic Valve There is a normal trileaflet aortic valve. There is mild calcification of the aortic valve. There is no aortic valve stenosis. There is no aortic valve regurgitation. Mitral Valve The mitral valve appears normal. There is no mitral valve regurgitation. There is no mitral valve stenosis. Pulmonic Valve The pulmonic valve is likely normal. Tricuspid Valve There is no tricuspid valve regurgitation. Tricuspid regurgitation envelope is inadequate for calculation of right ventricular systolic pressure. Great Vessels There is mild dilatation of the sinuses of Valsalva measuring 4.30 cm and mild dilatation of the ascending aorta measuring 4.00 cm. Venous The inferior vena cava is normal in size and collapses greater than 50% with inspiration. Pericardium/Pleural There is no evidence of pericardial effusion. Prior Study Comparison No prior study available for comparison. Recommendations, Care & Conclusions No obvious valvular pathology seen on this study. Measurements 2D Linear Measurements IVSd: 1.34 0.6-0.9/0.6-1.0 cm LVIDd: 4.92 3.9-5.3/4.2-5.9 cm LVIDd Index: 1.94 2.4-3.2/2.2-3.1 cm/m2 LVIDs: 3.02 2.0-3.6 cm LVPWd: 1.21 0.7-1.1 cm LA Diam: 3.90 2.7-3.8/3.0-4.0 cm LAIDs Index: 1.54 1.5-2.3 cm/m2 LV Mass: 309.65 67-162/88-224 g LV Mass Index: 122.39 43-95/49-115 g/m2 LVOT Diam: 2.50 3.0+(-)1.3 cm 2D Systolic Function EF 4C: 74.00 >55% EF 2C: 71.60 >55% EF BiP: 72.40 >55% Mitral Valve MV Pk E: 0.84 MV PK A: 1.03 MV Decel Time: 256.00 E/A: 0.80 E'Lateral: 7.94 E'Medial: 7.29 E/E' Med: 11.50 E/E' Lat: 10.60 PHT: 75.00 MVA PHT: 2.93 Decel Traill: 3.28 Aortic Valve AoV Pk Amol: 1.43 AoV Mn Amol: 0.96 AoV VTI: 0.28 AoV Pk Grad: 8.00 Aov Mn Grad: 4.00 DENISE Cont.VTI: 4.18 LVOT LVOT Pk Amol: 1.24 LVOT Mn Amol: 0.77 LVOT VTI: 0.24 LVOT Pk Grad: 6.00 LVOT Mn Grad: 3.00 LVOT Diam: 2.50 LVOT Area: 4.91 Diastolic Function MV Pk E: 0.84 MV Pk A: 1.03 E/A: 0.80 E'Medial: 7.29 E/E' Med: 11.50 E' Laterial: 7.94 E/E' Lat: 10.60 Right Ventricle TAPSE (mm): 29.00 TVS' Amol: 15.80 Tricuspid Valve RA Press: 3.00 Great Vessels Aorta Sinus of Valsalva: 4.30 2.0-3.5 cm Ao Asc: 4.00 2.1-3.4 cm Pulmonary Valve PV Pk Amol: 1.06 Peak PV Grad: 4.00 Updated in Other Vendor System with Status of Final Jarad Burns MD electronically signed on 07/28/2023 3:11:04 PM with status of Final
== END ==
LOC: HO.CARD 10:05
PROVIDERS: PCP Internal Medicine; Visit Provider Physician Assistant Surgical
DX: R94.31 Abnormal electrocardiogram [ECG] [EKG] (principal); I10 Essential (primary) hypertension; E66.01 Morbid (severe) obesity due to excess calories
CPT/HCPCS: 93306; Q9957

== ENCOUNTER → 2023-07-28 10:07 | Outpatient (BNV) | payer OTHER, SELFPAY | PROVIDERS: PCP Internal Medicine; Visit Provider Internal Medicine | DX: I35.8 Other nonrheumatic aortic valve disorders (principal); R94.31 Abnormal electrocardiogram [ECG] [EKG] | CPT/HCPCS: 93306 ==

== ENCOUNTER 2023-08-02 09:59 | Outpatient (AMB) | payer OTHER, SELFPAY ==
--- NOTE | 2023-08-02 10:04 | A.OFFVIS_ITS ---
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 Off Required: No Allergies bee pollen [BEE STINGS] Allergy (Unknown, Verified 07/19/23 12:19) ANAPHYLAXIS lisinopril [LISINOPRIL] Adverse Reaction (Unknown, Verified 07/19/23 12:19) COUGH SEAFOOD Allergy (Unknown, Uncoded 07/19/23 12:19) ANAPHYLAXIS shrimp Allergy (Unknown, Uncoded 07/19/23 12:19) Unknown HPI Nutrition Presentation Reason for consult elevated BMI Diet Assmnt Details Pt feels he is doing very well 1 scoop premier powder with 8oz almond m ilk second shake with 2 scoops powder in 8oz almond milk 1 bar - atkins dinner - pork chop with salad, another dinner night chicken in the air fryer and salad with dressing Patient reports he was recently prescribed a medication but he does not know the name of it - thinks it might be a PPI ; is scheduled for his H pylori test next week [facility] online classes: 0/ ; pt very confused about these,last appt walked him through how to access them Previous weight loss methods attempted Pt previously meeting with Dany GARCIA several times, but was unable to make sig dietary changes Dietary counseling reduction Who buys your food self Who prepares/cooks your food self Diagnosis Nutrition problem #1 overweight/obesity As related to (etiology) #1 excess energy intake and physical inactivity As evidenced by (sign/symptom) #1 high BMI Nutrition problem #2 not ready diet/lifestyle and food nutri know defi As related to (etiology) #2 unwilling to learn/apply As evidenced by (sign/symptom) #2 knowledge deficit of diet Monitoring/Goals Nutrition problem monitoring total energy intake, level of knowledge/skill, total PRO intake, total CHO intake, weight and oral fluids Outcome progress progressing Learning/Education Readiness to learn fair Stages of change action Educational materials provided Yes Most Recent Diabetes Results: No Data to Display PFSH Medical History Poor urinary stream Benign prostatic hyperplasia with lower urinary tract symptoms Malignant neoplasm of right kidney Renal mass Complex renal cyst Surgical History Hx of hernia repair Hx of kidney removal Social History Alcohol intake: current Alcohol intake frequency: a few times a week Patient Tobacco Use Status: Never used Tobacco Assessment & Plan Assessment & Plan (1) Obesity (BMI 30-39.9): Code(s): E66.9 - Obesity, unspecified Patient Instructions: not clear if pt is good candidate for bariatric surgery at this time. He will need more education and will need to take his online classes. Pt will be seen again. he will call our office with the name the medication he started Coding Level of Care Code Nutr Indiv Subseq (63580) Diagnoses Obesity (BMI 30-39.9) E66.9 Time Spent (min) 30
== END 2023-08-02 10:24 | disposition home or self-care (01) ==
PROVIDERS: PCP Internal Medicine; Visit Provider Dietitian, Registered
DX: E66.9 Obesity, unspecified (principal)

== ENCOUNTER → 2023-08-02 09:59 | Outpatient (BNVA) | payer OTHER, SELFPAY | PROVIDERS: PCP Internal Medicine; Visit Provider Dietitian, Registered | DX: E66.9 Obesity, unspecified (principal) | CPT/HCPCS: 97803 ==

== ENCOUNTER 2023-08-09 08:17 | Outpatient (REF) | payer OTHER, SELFPAY ==
[2023-08-12 14:01] LABS: H Pylori Breath Test Negative (Negative)
== END 2023-08-09 08:18 | disposition home or self-care (01) ==
LOC: HO.LNP 08:17
PROVIDERS: PCP Internal Medicine; Visit Provider Physician Assistant Surgical
DX: Z01.818 Encounter for other preprocedural examination (principal); E66.9 Obesity, unspecified; A04.8 Other specified bacterial intestinal infections
CPT/HCPCS: 83013; 99211; 99212

== ENCOUNTER 2023-08-09 08:17 | Outpatient (AMB) | payer OTHER, SELFPAY ==
--- NOTE | 2023-08-09 08:27 | A.OFFVIS_ITS ---
Intake VS Expanded 08/09/23 08:36 BP 160/92 H Blood Pressure Location Rt brachial Blood Pressure Position Sitting Pulse 64 Pulse Source Pulse Oximeter Temp 97.5 F Temperature Source Temporal Artery Scan Pulse Oximetry 97 Oxygen Delivery Method Room Air Height 6 ft 1 in Weight 290 lb 3.2 oz BMI 38.3 Body Fat % 38.7 Body Fat Mass 112.2 Fat Free Mass 178.0 Visceral Fat Rating 24.0 Body Water % 41.2 Body Water Mass 119.4 Muscle Mass/Score 169.0 Basal Metabolic Rate/Score 2,471 Intake Visit Reasons: (OV) F/U SWL & H. 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: No Allergies bee pollen [BEE STINGS] Allergy (Unknown, Verified 08/09/23 08:32) ANAPHYLAXIS lisinopril [LISINOPRIL] Adverse Reaction (Unknown, Verified 08/09/23 08:32) COUGH SEAFOOD Allergy (Unknown, Uncoded 07/19/23 12:19) ANAPHYLAXIS shrimp Allergy (Unknown, Uncoded 07/19/23 12:19) Unknown Medication List - Last Reconciled 08/09/23 by ANIVAL Dunlap amlodipine 2.5 mg PO DAILY betamethasone dipropionate 0.05% topical cholecalciferol (vitamin D3) 125 mcg PO DAILY 90 days cyanocobalamin (vitamin B-12) 500 mcg PO DAILY 90 days epinephrine 1 IM DIRECTED fluticasone propionate 50 mcg/actuation 1 spray intranasal BID hydrochlorothiazide 25 mg PO DAILY methocarbamol mg PO metoprolol succinate ER 100 mg PO DAILY pyridoxine (vitamin B6) 100 mg PO DAILY 90 days tadalafil 5 mg PO DAILY PRN 90 days tamsulosin 0.4 mg PO DAILY 14 days HPI HPI Comments History of Present Illness Details The patient is a pleasant 63 year old male who returns to the clinic for pre-operative surgical weight loss management. They were last seen in the office on 07/19/23, recorded weight at that time was 292.8 pounds, with a BMI of 38.6. Today's weight is 290.2 pounds and BMI is 38.3. There has been a weight loss of 17 pounds since initiating the surgical weight loss program on 05/25/23 with a total body weight loss of 5.5 %. Pre op work up completed as follows: SWL classes:? 02/12 appts: cleared-06/21/23 ? ? RD appts: needs f/u appt Labs: 05/26/23-low D, B12:303 H. pylori: 05/25/23-pos, re-test 08/09/23 CXR: 05/26/23-nad EK05/26/23 1st degree AV block-06/20/23 nuc stress likely normal, consider echo, ordered 06/28/23, done 07/28/23-hyperdynamic LV w EF > 70% no valvular pathology ABD U/S: not yet done UGI: 08/29/23 The patient reports he has been following the meal plan except not counting or measuring food at night. one powdered Premier protein shake (ONE scoop in 8oz low fat unsweetened almond milk) at 9am-11am, another Premier protein shake with TWO scoops in 8oz almond milk at 12pm-2pm, 1 protein bar ([employer] protein bars, buy at [employer], ?[employer], [facility], or [employer]) at 3pm-5pm, dinner at 6pm (10 forks of protein and 10 forks of salad/vegetables) Drinking 64 oz water exercise plan: treadmill speed 3.2 incline 0-4, 3 x last week, 140 calories PFSH Medical History Poor urinary stream Benign prostatic hyperplasia with lower urinary tract symptoms Malignant neoplasm of right kidney Renal mass Complex renal cyst Surgical History Hx of hernia repair Hx of kidney removal Social History Alcohol intake: current Alcohol intake frequency: a few times a week Patient Tobacco Use Status: Never used Tobacco Review of Systems Const All systems reviewed & are unremarkable except as noted in HPI and below Physical Exam Const General: healthy appearing and no acute distress Resp Effort & Inspection: normal respiratory effort Auscultation: clear to auscultation bilaterally Cardio Rate: regular rate Rhythm: regular rhythm GI Auscultation: normal bowel sounds Extrem General: Yes normal to inspection Assessment & Plan Assessment & Plan (1) Obesity: Code(s): E66.9 - Obesity, unspecified Plan: discussed the importance of measuring food at night and following meal plan Will arrange f/u w RD reminded of upcoming appts Encouraged to go to the gym 5 x per week and to add stationary bike after treadmill (2) H. pylori infection: Code(s): A04.8 - Other specified bacterial intestinal infections Plan: reports he completed abx retest today Orders: Orders H Pylori Breath Test Today Z01.818 - Encounter for other preprocedural examination Coding Level of Care Code Est Pt Level 4 (82119) Diagnoses Obesity E66.9 H. pylori infection A04.8 Time Spent (min) 40
[2023-08-09 08:36] VITALS: BP 160/92; PULSE 64; TEMP 36.4; O2SAT 97; BMI 38.3
== END 2023-08-09 08:57 | disposition home or self-care (01) ==
PROVIDERS: PCP Internal Medicine; Visit Provider Physician Assistant Surgical
DX: E66.9 Obesity, unspecified (principal); Z68.38 Body mass index [BMI] 38.0-38.9, adult; Z98.84 Bariatric surgery status; Z90.3 Acquired absence of stomach [part of]; A04.8 Other specified bacterial intestinal infections
CPT/HCPCS: 99214

== ENCOUNTER 2023-09-02 13:40 | Outpatient (AMB) | payer OTHER, SELFPAY ==
--- NOTE | 2023-09-02 13:42 | MHC.OFFVIS ---
Intake Intake Visit Reasons: 1yr follow up/US(set) Intake Note: Patient is present for 1 year follow up/ultrasound (07/19/23) Urology Medication: tadalafil Blood Thinners: None Allergies bee pollen [BEE STINGS] Allergy (Unknown, Verified 09/02/23 16:32) ANAPHYLAXIS lisinopril [LISINOPRIL] Adverse Reaction (Unknown, Verified 09/02/23 16:32) COUGH SEAFOOD Allergy (Unknown, Uncoded 09/02/23 16:32) ANAPHYLAXIS shrimp Allergy (Unknown, Uncoded 09/02/23 16:32) Unknown Medication List - Last Reconciled 09/02/23 by JUAN Saucedo amlodipine 2.5 mg PO DAILY betamethasone dipropionate 0.05% topical cholecalciferol (vitamin D3) 125 mcg PO DAILY 90 days cyanocobalamin (vitamin B-12) 500 mcg PO DAILY 90 days epinephrine 1 IM DIRECTED fluticasone propionate 50 mcg/actuation 1 spray intranasal BID hydrochlorothiazide 25 mg PO DAILY methocarbamol mg PO metoprolol succinate ER 100 mg PO DAILY pyridoxine (vitamin B6) 100 mg PO DAILY 90 days tadalafil 5 mg PO DAILY PRN 90 days tamsulosin 0.4 mg PO DAILY 14 days HPI HPI Comments History of Present Illness Details Mr. Pierson is very pleasant 63-year-old male patient of Dr. Hardin. He has a past medical history of obesity, hypertension, renal cancer, nephrolithiasis, BPH, and erectile dysfunction. In discussion with the patient today he reports to be doing and feeling well. Recent renal imaging results reviewed with the patient today. Right kidney surgically absent. Left kidney is normal in size, contour, and echogenicity, 5 benign Bosniak class one renal cysts are noted, the largest measuring approximately 2.5 cm in the upper pole. These require no additional imaging or follow-up per radiology report. No solid renal masses are seen. Patient reports compliance with vitamin B6 and tadalafil daily. In discussion with the patient today regarding his urinary system he reports noting episodes of urinary frequency with incontinence if not near a bathroom. He otherwise denies nocturia, hematuria, dysuria, foul smelling urine, changes to urinary stream, flank pain, fever, and or chills. In office urinalysis results reviewed with the patient today. Discussed obtaining CT of the abdomen and pelvis as well as CT of the chest for surveillance monitoring as well as obtaining PSA. Patient is agreeable. Previous PSA 01/26--1.6. PREVIOUS OFFICE NOTE Renal cancer - right nephrectomy 2017 pT2 grade 2 They present for continued followup and management, left side, renal cancer. The renal mass was diagnosed incidentally, during evaluation for, GI symptoms. Imaging included 11/21 , a CT (computed tomography) scan of the abdomen/pelvis - 6cm renal complex cyst without enhancement 12/24 - , a CT (computed tomography) scan of the abdomen/pelvis - no contrast - renal cyst on right kidney lower pole. 12/24 - MRI with contrast - enhancement of posterior wall of renal cyst, 8.5 cm 05/23 , an MRI of the abdomen - renal cyst with enhancement enhancement of rim 02/22 , a CT (computed tomography) scan of the abdomen/pelvis, no issues, left 1.0cm stone 07/25 , a renal ultrasound left 1cm stone, 1cm cyst 12/27 , a renal ultrasound left 1 cm cyst, 06/26 chest x-ray normal - 12/28 renal ultrasound no stones, 07/28 chest x-ray normal - 12/29 renal ultrasound left renal cyst x3 with 4 mm stone - 06/28 renal ultrasound left renal cyst x3, no stone Prior treatment(s) included surveillance 08/23 , nephrectomy, right. Staging of initial cancer 08/23 , T2, with no positive lymph nodes, without vena cava involvement, without metastasis. The diagnosis was 08/23 , renal cell carcinoma, Grade II. Current symptoms include hematuria No dysuria No fever No chills No Recent labs include 08/23 Preop , a creatinine 1.3. Planned therapeutic plan further surveillance with imaging and laboratory investigations appropriate for pathology findings and patient performance status. Nephrolithiasis/Urolithiasis: No stones Responding to Viagra for UD Hernia well-healed. They are here for further evaluation of nephrolithiasis. They present for evaluation of back pain none flank pain none abdominal pain none The patient previously had kidney stones whose composition w 10/24 , calcium oxalate - monohydrate 80%. Laboratory investigations include no recent labs. 24 Hour urine evaluation 10/24 , Good Volume > 2.00 L, Low calcium < 200, High Citrate - , High Sodium (> 100mEq), High oxalate > 30mg 05/25 Volu 1.2, Na 208, Oxalate 48. Prior treatment(s) include 09/24 , left, ureteroscopy. Prior imaging includes 03/24 , a CT (computed tomography) scan of the abdomen/pelvis (stone protocol), showing radiodense stone(s) 1.0cm on left side 10/24 , a renal ultrasound 6mm left renal 04/25 , a renal ultrasound no stones. The stone's maximum size is 5-10mm. Current therapeutic plan will be to continue with imaging surveillance [facility] Medical History Poor urinary stream Benign prostatic hyperplasia with lower urinary tract symptoms Malignant neoplasm of right kidney Renal mass Complex renal cyst Surgical History Hx of hernia repair Hx of kidney removal Social History Alcohol intake: current Alcohol intake frequency: a few times a week Patient Tobacco Use Status: Never used Tobacco Review of Systems Const All systems reviewed & are unremarkable except as noted in HPI and below Eyes Reports no additional complaints ENT Reports no additional complaints Card Reports as per HPI Resp Reports no additional complaints GI Reports as per HPI Reports as per HPI Musc Reports no additional complaints Neuro Reports no additional complaints Psych Reports no additional complaints Endo Reports no additional complaints Jeyson/Lymph Reports no additional complaints Aller/Immun Reports no additional complaints Physical Exam Const General: cooperative, healthy appearing, comfortable, no acute distress, well developed, alert and awake Nutritional Appearance: overweight Orientation/consciousness: patient oriented x3 Limitations: no limitations HEENT Head: Yes normal to inspection, Yes normocephalic and Yes atraumatic Ears: hearing grossly normal bilaterally Eyes General: appearance normal, both eyes and all related structures Neck Neck: Yes normal visual inspection and Yes trachea midline Chest Chest palpation & inspection: normal inspection of the chest Resp Effort & Inspection: normal respiratory effort and able to speak in complete sentences Cardio Rate: regular rate GI Inspection: Yes normal to inspection General: Yes no CVA tenderness Back/Spine/Pelvis Back: no CVA tenderness Skin General skin exam: no rashes or lesions noted Neuro General: patient oriented x3 Extrem General: Yes normal to inspection Psych Appearance: grossly normal and well kempt Mental Status: mental status grossly normal Speech and movement: Normal speech and movement present and Clear speech present Affect: normal affect Attitude: cooperative Thought process: Normal thought process present Thought content: Normal thought content present Insight: Good insight present (Psych) Judgement: Good judgement present (Psych) Results AMB Urinalysis, Automated UA Leukoctes 0 Quin[place]/uL Last Edit by Ramila Ahumada MA on 09/02/23 13:53 UA Nitrite Negative Last Edit by Ramila Ahumada MA on 09/02/23 13:53 UA Urobilinogen 1 mg/dL Last Edit by Ramila Ahumada MA on 09/02/23 13:53 UA Protein 100 mg/dL Last Edit by Ramila Ahumada MA on 09/02/23 13:53 UA pH 6.0 Last Edit by Ramila Ahumada MA on 09/02/23 13:53 UA Blood 0 Fam/uL Last Edit by Ramila Ahumada MA on 09/02/23 13:53 UA Specific [place] 1.020 Last Edit by Ramila Ahumada MA on 09/02/23 13:53 UA Ketone Positive Last Edit by Ramila Ahumada MA on 09/02/23 13:53 UA Bilirubin 0 mg/dL Last Edit by Ramila Ahumada MA on 09/02/23 13:53 UA Glucose 0 mg/dL Last Edit by Ramila Ahumada MA on 09/02/23 13:53 Results Reviewed Results Reviewed: Laboratory Last Values Urine pH (Auto) 6.0 09/02/23 13:49 Specific [place] (Auto) 1.020 09/02/23 13:49 Urine Protein (Auto) 100 mg/dL 09/02/23 13:49 Glucose (UA)(Auto) 0 mg/dL 09/02/23 13:49 Urine Ketones (Auto) Positive 09/02/23 13:49 Urine Blood (Auto) 0 Fam/uL 09/02/23 13:49 Urine Nitrite (Auto) Negative 09/02/23 13:49 Urine Bilirubin (Auto) 0 mg/dL 09/02/23 13:49 Urine Urobilinogen (Auto) 1 mg/dL 09/02/23 13:49 Leukocyte Esterase (Auto) 0 [place]/uL 09/02/23 13:49 Assessment & Plan Assessment & Plan (1) Malignant neoplasm of right kidney: Comment: Nephrectomy 2017 Code(s): C64.1 - Malignant neoplasm of right kidney, except renal pelvis (2) Nephrolithiasis: Code(s): N20.0 - Calculus of kidney (3) Benign prostatic hyperplasia with lower urinary tract symptoms: Code(s): N40.1 - Benign prostatic hyperplasia with lower urinary tract symptoms (4) Erectile dysfunction: Code(s): N52.9 - Male erectile dysfunction, unspecified Plan In office urinalysis results reviewed with the patient today; as noted above. Recent renal imaging results reviewed with the patient today; as noted above. Will obtain CT of the chest as well as CT of the abdomen and pelvis for further assessment evaluation as well as surveillance monitoring given history of renal cancer BUN and CREATININE ordered for imaging Will obtain PSA for further assessment evaluation Continue vitamin B6, and low-dose Cialis. Discussed bladder triggers/irritants Discussed timed/scheduled toileting. Follow up in 1-2 months with imaging and labs to be completed prior; or sooner with any issues, concerns, and or questions. Orders: Orders Creatinine Today C64.1 - Malignant neoplasm of right kidney, except renal pelvis CT chest wo/w IV con Today C64.1 - Malignant neoplasm of right kidney, except renal pelvis AMB Urinalysis Automated Today Z13.9 - Encounter for screening, unspecified CT abdomen pelvis wo/w IV con Today C64.1 - Malignant neoplasm of right kidney, except renal pelvis Blood Urea Nitrogen Today C64.1 - Malignant neoplasm of right kidney, except renal pelvis Prostate Specific Antigen Today N40.1 - Benign prostatic hyperplasia with lower urinary tract symptoms Medications: Discontinued tamsulosin Discontinued Reason: Patient Completed Course 0.4 mg PO DAILY 14 days 14 caps 0RF Patient Instructions: The patient had an opportunity to ask questions regarding the treatment plan. All questions were answered. Physical exam, labs, and imaging were discussed and reviewed in detail. As well as risks, benefits, and discussion of treatment choices. No major barriers to understanding were identified. The patient expressed understanding and agreement with the above treatment plan. The patient was made aware they should contact our office by phone for worsening of their current condition, the appearance of new symptoms, or with any questions or concerns. Compliance is encouraged with any medications and follow up testing that is ordered. It is a privilege to be allowed the opportunity to participate in? your urological care.? Again, if you have any questions or concerns If you have any questions or concerns please do not hesitate to contact me. The office is [phone]. This note is constructed using voice recognition software. While every effort has been made to ensure accuracy television station manager errors may have been included. Yours sincerely, JUAN Saucedo Coding Level of Care Code Est Pt Level 3 (48068) Diagnoses Malignant neoplasm of right kidney C64.1 Nephrolithiasis N20.0 Benign prostatic hyperplasia with lower urinary tract symptoms N40.1 Erectile dysfunction N52.9
== END 2023-09-02 14:18 | disposition home or self-care (01) ==
PROVIDERS: PCP Internal Medicine; Visit Provider Nurse Practitioner Family
DX: C64.1 Malignant neoplasm of right kidney, except renal pelvis (principal); N20.0 Calculus of kidney; N40.1 Benign prostatic hyperplasia with lower urinary tract symptoms; N52.9 Male erectile dysfunction, unspecified; Z13.9 Encounter for screening, unspecified
CPT/HCPCS: 99213

== ENCOUNTER → 2023-09-02 13:40 | Outpatient (BNVA) | payer OTHER, SELFPAY | PROVIDERS: PCP Internal Medicine; Visit Provider Nurse Practitioner Family | DX: C64.1 Malignant neoplasm of right kidney, except renal pelvis (principal); N20.0 Calculus of kidney; N52.9 Male erectile dysfunction, unspecified; N40.1 Benign prostatic hyperplasia with lower urinary tract symptoms | CPT/HCPCS: 81003; 99212 ==

== ENCOUNTER 2023-09-05 10:21 | Outpatient (AMB) | payer OTHER, SELFPAY ==
--- NOTE | 2023-09-05 10:25 | A.OFFVIS_ITS ---
Intake VS Expanded 09/05/23 10:29 BP 128/76 Blood Pressure Location Rt brachial Blood Pressure Position Sitting Pulse 72 Pulse Source Pulse Oximeter Temp 97.1 F Temperature Source Tympanic Pulse Oximetry 99 Oxygen Delivery Method Room Air Height 6 ft 1 in Weight 283 lb 6.4 oz BMI 37.4 Body Fat % 38.8 Body Fat Mass 110.0 Fat Free Mass 173.2 Visceral Fat Rating 23.0 Body Water % 40.0 Body Water Mass 113.4 Muscle Mass/Score 164.6 Basal Metabolic Rate/Score 2,402 Intake Visit Reasons: (OV) F/U SWL Allergies bee pollen [BEE STINGS] Allergy (Unknown, Verified 09/05/23 10:28) ANAPHYLAXIS lisinopril [LISINOPRIL] Adverse Reaction (Unknown, Verified 09/05/23 10:28) COUGH SEAFOOD Allergy (Unknown, Uncoded 09/05/23 10:28) ANAPHYLAXIS shrimp Allergy (Unknown, Uncoded 09/05/23 10:28) Unknown HPI HPI Comments History of Present Illness Details The patient is a pleasant 63 year old male who returns to the clinic for pre-operative surgical weight loss management. They were last seen in the office on 08/09/23, recorded weight at that time was 290.2 pounds, with a BMI of 38.3. Today's weight is 283.4 pounds and BMI is 37.4. There has been a weight loss of 23.8 pounds since initiating the surgical weight loss program on 05/25/23 with a total body weight loss of 7.7 %. Pre op work up completed as follows: SWL classes:? 02/12 BH appts: cleared-06/21/23 ? ? RD appts: f/u 09/06/23 Labs: 05/26/23-low D, B12:303 H. pylori: 05/25/23-pos, re-test 08/09/23-neg CXR: 05/26/23-nad EK05/26/23 1st degree AV block-06/20/23 nuc stress likely normal, consider echo, ordered 06/28/23, done 07/28/23-hyperdynamic LV w EF > 70% no valvular pathology ABD U/S: not yet done UGI: 08/29/23-missed The patient reports he has been following the meal plan except not counting or measuring food at night. one powdered Premier protein shake (ONE scoop in 8oz low fat unsweetened almond milk) at 9am-11am, another Premier protein shake with TWO scoops in 8oz almond milk at 12pm-2pm, 1 protein bar (Atkins protein bars, buy at [employer], [employer], [employer], or [employer]) at 3pm-5pm, dinner at 6pm (10 forks of protein and 10 forks of salad/vegetables) Drinking 64 oz water Exercise : walking 4 x per week, riding bike, not tracking calories. [facility] Medical History Poor urinary stream Benign prostatic hyperplasia with lower urinary tract symptoms Malignant neoplasm of right kidney Renal mass Complex renal cyst Surgical History Hx of hernia repair Hx of kidney removal Social History Alcohol intake: current Alcohol intake frequency: a few times a week Patient Tobacco Use Status: Never used Tobacco Physical Exam Vital Signs: Last Vital Signs Temp 97.1 F 09/05/23 10:29 Pulse 72 09/05/23 10:29 BP 128/76 09/05/23 10:29 Pulse Ox 99 09/05/23 10:29 Oxygen Delivery Method Room Air 09/05/23 10:29 BMI result Body Mass Index 37.4 Assessment & Plan Assessment & Plan (1) Obesity: Code(s): E66.9 - Obesity, unspecified Plan: Patient is now more adherent to the meal plan. He was able to explain it back to me accurately although he was doing to protein bars. There may have been a miscommunication wrap this and he will discontinue the post dinner protein bar. He was advised that he missed his upper GI scheduled for 08/29/2023. We will reschedule the upper GI and schedule the abdominal ultrasound. He was reminded of his follow-up with Shaylee on 09/06/2023. Strongly encouraged to return to the gym, tracking calories with a goal of 300 per day or 2000 per week. Encouraged to communicate by text with me weekly. Return to clinic 3 weeks. Coding Level of Care Code Est Pt Level 3 (40824) Diagnoses Obesity E66.9
[2023-09-05 10:29] VITALS: BP 128/76; PULSE 72; TEMP 36.2; O2SAT 99; BMI 37.4
== END 2023-09-05 10:50 | disposition home or self-care (01) ==
PROVIDERS: PCP Internal Medicine; Visit Provider Physician Assistant Surgical
DX: E66.9 Obesity, unspecified (principal); Z68.37 Body mass index [BMI] 37.0-37.9, adult
CPT/HCPCS: 99213

== ENCOUNTER → 2023-09-05 10:21 | Outpatient (BNVA) | payer OTHER, SELFPAY | PROVIDERS: PCP Internal Medicine; Visit Provider Physician Assistant Surgical | DX: E66.9 Obesity, unspecified (principal); I44.0 Atrioventricular block, first degree; Z68.37 Body mass index [BMI] 37.0-37.9, adult | CPT/HCPCS: 99212 ==

== ENCOUNTER → 2023-09-06 11:00 | Outpatient (BNVA) | payer OTHER, SELFPAY | PROVIDERS: PCP Internal Medicine; Visit Provider Dietitian, Registered | DX: E66.9 Obesity, unspecified (principal) | CPT/HCPCS: 97803 ==

== ENCOUNTER 2023-10-10 08:54 | Outpatient (REF) | payer OTHER, SELFPAY ==
--- NOTE | ~2023-10-10 | CT_ITS ---
EXAMINATION: CT CHEST, ABDOMEN, AND PELVIS WITHOUT AND WITH CONTRAST CLINICAL INFORMATION: Malignant neoplasm of right kidney, restaging COMPARISON: MRI from 06/26/2017 TECHNIQUE: Multidetector volumetric CT imaging of the chest, abdomen, and pelvis was obtained after the administration of 85 mL of Omnipaque 350 intravenous contrast without immediate adverse reactions. Axial MIP volume rendering provided. Sagittal and coronal reformatted images were obtained. This CT examination was performed using dose optimization techniques as appropriate, variously including the following: *Automated exposure control *Adjustment of mA and/or kV according to patient size (this includes techniques or standardized protocols for targeted exams where dose is matched to indication/reason for exam; i.e. extremities or head) *Use of iterative reconstruction technique DLP: 1299 mGy-cm FINDINGS: LUNGS: There is scarring of the posterior apex on the right No lung nodules, consolidation, masses. Central airways are patent. MEDIASTINUM: The mediastinum appears unremarkable. CORONARY ARTERY CALCIFICATION: PLEURA: There is no pleural effusion. No pleural mass or thickening. AXILLA: No lymphadenopathy by size criteria. LIVER, GALLBLADDER, AND BILIARY TREE: The liver appears unremarkable in size, shape, and attenuation. No focal hepatic lesion or biliary ductal dilatation is appreciated. Unremarkable appearance of the gallbladder. PANCREAS: Unremarkable SPLEEN: There is stable since MRI of 2017 2.3 x 1.7 cm cyst in the medial portion of the spleen ADRENAL GLANDS: Unremarkable KIDNEYS AND URETERS: Left kidney revealed a few exophytic and parenchymal cysts. There is nonobstructing 0.2 cm stone in the lower pole of left kidney. No mass is seen. The largest exophytic cyst in the upper pole of left kidney measured 2.4 cm. Ureter is not dilated. Right kidney is surgically absent. BLADDER: Partially distended urinary bladder revealed mildly thickened anterior wall correlate with ultrasound performed on distended urinary bladder or cystoscopy. GASTROINTESTINAL TRACT: The small and large bowel appear unremarkable. There is normal appendix present. ABDOMINAL WALL: No significant hernia is appreciated. LYMPH NODES: No evidence of adenopathy by size criteria. VASCULAR: Abdominal aorta is calcified but not dilated. PELVIC VISCERA: Calcifications seen in otherwise unremarkable prostate OSSEOUS STRUCTURES: Degenerative in lumbar spine and dextroscoliosis. CT/CT abdomen pelvis wo/w IV con IMPRESSION: 1. Status post right nephrectomy. 2. Left renal cysts. 3. No evidence of metastases. 4. Stable splenic cyst. 5. Mild thickening of anterior wall of urinary bladder, correlate with ultrasound or cystoscopy.
[2023-10-10] MEDS: iohexoL 350 MG/ML 100 ML INFUS..BTL 85 ML IV (09:39)
[2023-10-10 14:30] LABS: GFR POC > 60
== END 2023-10-10 08:55 | disposition home or self-care (01) ==
LOC: HO.CT 08:54
PROVIDERS: PCP Internal Medicine; Visit Provider Nurse Practitioner Family
DX: C64.1 Malignant neoplasm of right kidney, except renal pelvis (principal)
CPT/HCPCS: 71260; 74178; 82565; Q9967

== ENCOUNTER 2023-10-14 09:24 | Outpatient (AMB) | payer OTHER, SELFPAY ==
--- NOTE | 2023-10-14 09:27 | MHC.OFFVIS ---
Intake Intake Visit Reasons: 5w/CT/labs Intake Note: Patient is present for follow up nephrolithiasis/ct scan/psa (imaging 10/10/23) (psa 1.5) Urology Medication: tadalafil Blood Thinners: None Nip Wrapper Required: No Accompanied by: Self / Same As Patient Allergies bee pollen [BEE STINGS] Allergy (Unknown, Verified 10/15/23 14:47) ANAPHYLAXIS lisinopril [LISINOPRIL] Adverse Reaction (Unknown, Verified 10/15/23 14:47) COUGH SEAFOOD Allergy (Unknown, Uncoded 10/15/23 14:47) ANAPHYLAXIS shrimp Allergy (Unknown, Uncoded 10/15/23 14:47) Unknown Medication List - Last Reconciled 10/15/23 by THOMAS Saucedo- amlodipine 5 mg PO DAILY betamethasone dipropionate 0.05% topical cetirizine 10 mg PO DAILY cholecalciferol (vitamin D3) 125 mcg PO DAILY 90 days epinephrine 1 IM DIRECTED fluticasone propionate 50 mcg/actuation 1 spray intranasal BID hydrochlorothiazide 25 mg PO DAILY metoprolol succinate ER 100 mg PO DAILY tadalafil 5 mg PO DAILY PRN 90 days HPI HPI Comments History of Present Illness Details Mr. Pierson is very pleasant 63-year-old male patient of Dr. Hardin. He has a past medical history of obesity, hypertension, renal cancer, nephrolithiasis, BPH, and erectile dysfunction. In discussion with the patient today he reports to be doing and feeling well. Of note, patient was seen approximately 6 weeks ago at which time surveillance imaging was ordered for patient has longstanding history of renal cancer. These results were reviewed with the patient today. Status post right nephrectomy, left renal cysts, no evidence of metastases, stable splenic cyst and mild thickening of anterior wall of urinary bladder, correlate with ultrasound or cystoscopy per radiology report. Previous workup has also included a renal ultrasound noting right kidney surgically absent. Left kidney is normal in size, contour, and echogenicity, 5 benign Bosniak class one renal cysts are noted, the largest measuring approximately 2.5 cm in the upper pole. These require no additional imaging or follow-up per radiology report. No solid renal masses are seen. Patient reports compliance with vitamin B6 and tadalafil daily. He reports having previously trialed Flomax for urinary urgency and frequency and found it somewhat helpful however does not like taking medications unless needed and does not feel urinary symptoms are bothersome. He otherwise denies nocturia, hematuria, dysuria, foul smelling urine, changes to urinary stream, flank pain, fever, and or chills. In office urinalysis results reviewed with the patient today. PSAs are as follows 01/26--1.6, 10/29--1.5 PREVIOUS OFFICE NOTE Renal cancer - right nephrectomy 2017 pT2 grade 2 They present for continued followup and management, left side, renal cancer. The renal mass was diagnosed incidentally, during evaluation for, GI symptoms. Imaging included 11/21 , a CT (computed tomography) scan of the abdomen/pelvis - 6cm renal complex cyst without enhancement 12/24 - , a CT (computed tomography) scan of the abdomen/pelvis - no contrast - renal cyst on right kidney lower pole. 12/24 - MRI with contrast - enhancement of posterior wall of renal cyst, 8.5 cm 05/23 , an MRI of the abdomen - renal cyst with enhancement enhancement of rim 02/22 , a CT (computed tomography) scan of the abdomen/pelvis, no issues, left 1.0cm stone 07/25 , a renal ultrasound left 1cm stone, 1cm cyst 12/27 , a renal ultrasound left 1 cm cyst, 06/26 chest x-ray normal - 12/28 renal ultrasound no stones, 07/28 chest x-ray normal - 12/29 renal ultrasound left renal cyst x3 with 4 mm stone - 06/28 renal ultrasound left renal cyst x3, no stone Prior treatment(s) included surveillance 08/23 , nephrectomy, right. Staging of initial cancer 08/23 , T2, with no positive lymph nodes, without vena cava involvement, without metastasis. The diagnosis was 08/23 , renal cell carcinoma, Grade II. Current symptoms include hematuria No dysuria No fever No chills No Recent labs include 08/23 Preop , a creatinine 1.3. Planned therapeutic plan further surveillance with imaging and laboratory investigations appropriate for pathology findings and patient performance status. Nephrolithiasis/Urolithiasis: No stones Responding to Viagra for UD Hernia well-healed. They are here for further evaluation of nephrolithiasis. They present for evaluation of back pain none flank pain none abdominal pain none The patient previously had kidney stones whose composition w 10/24 , calcium oxalate - monohydrate 80%. Laboratory investigations include no recent labs. 24 Hour urine evaluation 10/24 , Good Volume > 2.00 L, Low calcium < 200, High Citrate - , High Sodium (> 100mEq), High oxalate > 30mg 05/25 Volu 1.2, Na 208, Oxalate 48. Prior treatment(s) include 09/24 , left, ureteroscopy. Prior imaging includes 03/24 , a CT (computed tomography) scan of the abdomen/pelvis (stone protocol), showing radiodense stone(s) 1.0cm on left side 10/24 , a renal ultrasound 6mm left renal 04/25 , a renal ultrasound no stones. The stone's maximum size is 5-10mm. Current therapeutic plan will be to continue with imaging surveillance [facility] Medical History Poor urinary stream Benign prostatic hyperplasia with lower urinary tract symptoms Malignant neoplasm of right kidney Renal mass Complex renal cyst Surgical History Hx of hernia repair Hx of kidney removal Social History Alcohol intake: current Alcohol intake frequency: a few times a week Patient Tobacco Use Status: Never used Tobacco Review of Systems Const All systems reviewed & are unremarkable except as noted in HPI and below Eyes Reports no additional complaints ENT Reports no additional complaints Card Reports as per HPI Resp Reports no additional complaints GI Reports as per HPI Reports as per HPI Musc Reports no additional complaints Neuro Reports no additional complaints Psych Reports no additional complaints Endo Reports no additional complaints Jeyson/Lymph Reports no additional complaints Aller/Immun Reports no additional complaints Physical Exam Const General: cooperative, healthy appearing, comfortable, no acute distress, well developed, alert and awake Nutritional Appearance: overweight Orientation/consciousness: patient oriented x3 Limitations: no limitations HEENT Head: Yes normal to inspection, Yes normocephalic and Yes atraumatic Ears: hearing grossly normal bilaterally Eyes General: appearance normal, both eyes and all related structures Neck Neck: Yes normal visual inspection and Yes trachea midline Chest Chest palpation & inspection: normal inspection of the chest Resp Effort & Inspection: normal respiratory effort and able to speak in complete sentences Cardio Rate: regular rate GI Inspection: Yes normal to inspection General: Yes no CVA tenderness Back/Spine/Pelvis Back: no CVA tenderness Skin General skin exam: no rashes or lesions noted Neuro General: patient oriented x3 Extrem General: Yes normal to inspection Psych Appearance: grossly normal and well kempt Mental Status: mental status grossly normal Speech and movement: Normal speech and movement present and Clear speech present Affect: normal affect Attitude: cooperative Thought process: Normal thought process present Thought content: Normal thought content present Insight: Good insight present (Psych) Judgement: Good judgement present (Psych) Results AMB Urinalysis, Automated UA Leukoctes 0 [place]/uL Last Edit by [employer] on 10/14/23 10:01 UA Nitrite Negative Last Edit by [employer] on 10/14/23 10:01 UA Urobilinogen 0.2 mg/dL Last Edit by [employer] on 10/14/23 10:01 UA Protein 30 mg/dL Last Edit by [employer] on 10/14/23 10:01 UA pH 6.0 Last Edit by [employer] on 10/14/23 10:01 UA Blood 0 Fam/uL Last Edit by [employer] on 10/14/23 10:01 UA Specific [place] 1.025 Last Edit by [employer] on 10/14/23 10:01 UA Ketone Negative Last Edit by [employer] on 10/14/23 10:01 UA Bilirubin 0 mg/dL Last Edit by [employer] on 10/14/23 10:01 UA Glucose 0 mg/dL Last Edit by [employer] on 10/14/23 10:01 Results Reviewed Results Reviewed: Laboratory Last Values Urine pH (Auto) 6.0 10/14/23 09:30 Specific [place] (Auto) 1.025 10/14/23 09:30 Urine Protein (Auto) 30 mg/dL 10/14/23 09:30 Glucose (UA)(Auto) 0 mg/dL 10/14/23 09:30 Urine Ketones (Auto) Negative 10/14/23 09:30 Urine Blood (Auto) 0 Fam/uL 10/14/23 09:30 Urine Nitrite (Auto) Negative 10/14/23 09:30 Urine Bilirubin (Auto) 0 mg/dL 10/14/23 09:30 Urine Urobilinogen (Auto) 0.2 mg/dL 10/14/23 09:30 Leukocyte Esterase (Auto) 0 [place]/uL 10/14/23 09:30 Date of Service: 10/10/23 Procedure(s): CT abdomen pelvis wo/w IV con EXAMINATION: CT CHEST, ABDOMEN, AND PELVIS WITHOUT AND WITH CONTRAST FINDINGS: LUNGS: There is scarring of the posterior apex on the right No lung nodules, consolidation, masses. Central airways are patent. MEDIASTINUM: The mediastinum appears unremarkable. CORONARY ARTERY CALCIFICATION: PLEURA: There is no pleural effusion. No pleural mass or thickening. AXILLA: No lymphadenopathy by size criteria. LIVER, GALLBLADDER, AND BILIARY TREE: The liver appears unremarkable in size, shape, and attenuation. No focal hepatic lesion or biliary ductal dilatation is appreciated. Unremarkable appearance of the gallbladder. PANCREAS: Unremarkable SPLEEN: There is stable since MRI of 2017 2.3 x 1.7 cm cyst in the medial portion of the spleen ADRENAL GLANDS: Unremarkable KIDNEYS AND URETERS: Left kidney revealed a few exophytic and parenchymal cysts. There is nonobstructing 0.2 cm stone in the lower pole of left kidney. No mass is seen. The largest exophytic cyst in the upper pole of left kidney measured 2.4 cm. Ureter is not dilated. Right kidney is surgically absent. BLADDER: Partially distended urinary bladder revealed mildly thickened anterior wall correlate with ultrasound performed on distended urinary bladder or cystoscopy. GASTROINTESTINAL TRACT: The small and large bowel appear unremarkable. There is normal appendix present. ABDOMINAL WALL: No significant hernia is appreciated. LYMPH NODES: No evidence of adenopathy by size criteria. VASCULAR: Abdominal aorta is calcified but not dilated. PELVIC VISCERA: Calcifications seen in otherwise unremarkable prostate OSSEOUS STRUCTURES: Degenerative in lumbar spine and dextroscoliosis. IMPRESSION: 1. Status post right nephrectomy. 2. Left renal cysts. 3. No evidence of metastases. 4. Stable splenic cyst. 5. Mild thickening of anterior wall of urinary bladder, correlate with ultrasound or cystoscopy. Assessment & Plan Assessment & Plan (1) Nephrolithiasis: Code(s): N20.0 - Calculus of kidney (2) Malignant neoplasm of right kidney: Comment: Nephrectomy 2017 Code(s): C64.1 - Malignant neoplasm of right kidney, except renal pelvis (3) Erectile dysfunction: Code(s): N52.9 - Male erectile dysfunction, unspecified Plan In office urinalysis results reviewed with the patient today; as noted above. Recent CT results reviewed with the patient today; as noted above. Patient denies any bothersome urinary issues or concerns at this time. Will continue with surveillance imaging monitoring as discussed. Will obtain BUN, creatinine, and PSA in 1 year. Will obtain renal ultrasound in 1 year. Continue vitamin B6 and Cialis; refills provided. Follow-up in 1 year with imaging and labs to be completed prior; or sooner with any issues, concerns, and or questions. Orders: Orders AMB Urinalysis Automated 10/14/23 Z13.9 - Encounter for screening, unspecified Creatinine 364 Days C64.1 - Malignant neoplasm of right kidney, except renal pelvis Prostate Specific Antigen 364 Days N40.1 - Benign prostatic hyperplasia with lower urinary tract symptoms Blood Urea Nitrogen 364 Days C64.1 - Malignant neoplasm of right kidney, except renal pelvis US renal BI 364 Days C64.1 - Malignant neoplasm of right kidney, except renal pelvis Medications: Refilled tadalafil 5 mg PO DAILY 90 days PRN 90 tabs 3RF sexual activity Patient Instructions: The patient had an opportunity to ask questions regarding the treatment plan. All questions were answered. Physical exam, labs, and imaging were discussed and reviewed in detail. As well as risks, benefits, and discussion of treatment choices. No major barriers to understanding were identified. The patient expressed understanding and agreement with the above treatment plan. The patient was made aware they should contact our office by phone for worsening of their current condition, the appearance of new symptoms, or with any questions or concerns. Compliance is encouraged with any medications and follow up testing that is ordered. It is a privilege to be allowed the opportunity to participate in? your urological care.? Again, if you have any questions or concerns If you have any questions or concerns please do not hesitate to contact me. The office is [phone]. This note is constructed using voice recognition software. While every effort has been made to ensure accuracy admitting manager errors may have been included. Yours sincerely, JUAN Saucedo Coding Level of Care Code Est Pt Level 3 (06497) Diagnoses Nephrolithiasis N20.0 Malignant neoplasm of right kidney C64.1 Erectile dysfunction N52.9
== END 2023-10-14 10:10 | disposition home or self-care (01) ==
PROVIDERS: PCP Internal Medicine; Visit Provider Nurse Practitioner Family
DX: N20.0 Calculus of kidney (principal); C64.1 Malignant neoplasm of right kidney, except renal pelvis; N52.9 Male erectile dysfunction, unspecified
CPT/HCPCS: 99213

== ENCOUNTER → 2023-10-14 09:24 | Outpatient (BNVA) | payer OTHER, SELFPAY | PROVIDERS: PCP Internal Medicine; Visit Provider Nurse Practitioner Family | DX: N20.0 Calculus of kidney (principal); C64.1 Malignant neoplasm of right kidney, except renal pelvis; N52.9 Male erectile dysfunction, unspecified; E66.9 Obesity, unspecified; Z68.36 Body mass index [BMI] 36.0-36.9, adult | CPT/HCPCS: 81003; 99212 ==

== ENCOUNTER 2023-10-14 13:55 | Outpatient (AMB) | payer OTHER, SELFPAY ==
--- NOTE | 2023-10-14 13:58 | A.OFFVIS_ITS ---
Intake VS Expanded 10/14/23 14:04 BP 148/91 H Blood Pressure Location Rt brachial Blood Pressure Position Sitting Pulse 69 Pulse Source Pulse Oximeter Temp 97.1 F Temperature Source Tympanic Pulse Oximetry 97 Oxygen Delivery Method Room Air Height 6 ft 1 in Weight 275 lb 6.4 oz BMI 36.3 Body Fat % 37.9 Body Fat Mass 104.2 Fat Free Mass 171.0 Visceral Fat Rating 22.0 Body Water % 41.1 Body Water Mass 113.0 Muscle Mass/Score 162.8 Basal Metabolic Rate/Score 2,361 Intake Visit Reasons: (OV) F/U SWL [employer] Required: No Allergies bee pollen [BEE STINGS] Allergy (Unknown, Verified 10/14/23 14:00) ANAPHYLAXIS lisinopril [LISINOPRIL] Adverse Reaction (Unknown, Verified 10/14/23 14:00) COUGH SEAFOOD Allergy (Unknown, Uncoded 10/14/23 14:00) ANAPHYLAXIS shrimp Allergy (Unknown, Uncoded 10/14/23 14:00) Unknown Medication List - Last Reconciled 10/14/23 by ANIVAL Dunlap amlodipine 5 mg PO DAILY betamethasone dipropionate 0.05% topical cetirizine 10 mg PO DAILY cholecalciferol (vitamin D3) 125 mcg PO DAILY 90 days epinephrine 1 IM DIRECTED fluticasone propionate 50 mcg/actuation 1 spray intranasal BID hydrochlorothiazide 25 mg PO DAILY metoprolol succinate ER 100 mg PO DAILY tadalafil 5 mg PO DAILY PRN 90 days HPI HPI Comments History of Present Illness Details The patient is a pleasant 63 year old male who returns to the clinic for pre-operative surgical weight loss management. They were last seen in the office on 09/05/2023, recorded weight at that time was 283.4 pounds, with a BMI of 37.4. Today's weight is 275.4 pounds and BMI is 36.3. There has been a weight loss of 31.8 pounds since initiating the surgical weight loss program on 05/25/2023 with a total body weight loss of 10.3 %. Pre op work up completed as follows: SWL classes:? 02/12 BH appts: cleared-06/21/23 ? ? RD appts: f/u 09/06/23 Labs: 05/26/23-low D, B12:303 H. pylori: 05/25/23-pos, re-test 08/09/23-neg CXR: 05/26/23-nad EK05/26/23 1st degree AV block-06/20/23 nuc stress likely normal, consider echo, ordered 06/28/23, done 07/28/23-hyperdynamic LV w EF > 70% no valvular pathology ABD U/S: recent abd CT without liver abnormality in size shape or texture UGI: 11/21/23 The patient reports he has been following the meal plan except not counting or measuring food at night. one powdered Premier protein shake (ONE scoop in 8oz low fat unsweetened almond milk) at 9am-11am, another Premier protein shake with TWO scoops in 8oz almond milk at 12pm-2pm, 1 protein bar (Atkins protein bars, buy at [employer], ?[employer], [facility], or [employer]) at 3pm-5pm, dinner at 6pm (10 forks of protein and 10 forks of salad/vegetables) Drinking 64 oz water Exercise : PF 5 days per week, treadmill 3.5 incline 0-6, PFSH Medical History Poor urinary stream Benign prostatic hyperplasia with lower urinary tract symptoms Malignant neoplasm of right kidney Renal mass Complex renal cyst Surgical History Hx of hernia repair Hx of kidney removal Social History Alcohol intake: current Alcohol intake frequency: a few times a week Patient Tobacco Use Status: Never used Tobacco Physical Exam Vital Signs: Last Vital Signs Temp 97.1 F 10/14/23 14:04 Pulse 69 10/14/23 14:04 BP 148/91 H 10/14/23 14:04 Pulse Ox 97 10/14/23 14:04 Oxygen Delivery Method Room Air 10/14/23 14:04 BMI result Body Mass Index 36.3 Const General: healthy appearing and no acute distress Resp Effort & Inspection: normal respiratory effort Auscultation: clear to auscultation bilaterally Cardio Rate: regular rate Rhythm: regular rhythm GI Auscultation: normal bowel sounds Extrem General: Yes normal to inspection Results AMB Urinalysis, Automated UA Leukoctes 0 [place]/uL Last Edit by Marilynn Han on 10/14/23 10:01 UA Nitrite Negative Last Edit by Marilynn aHn on 10/14/23 10:01 UA Urobilinogen 0.2 mg/dL Last Edit by Marilynn Han on 10/14/23 10:01 UA Protein 30 mg/dL Last Edit by Marilynn Han on 10/14/23 10:01 UA pH 6.0 Last Edit by Marilynn Han on 10/14/23 10:01 UA Blood 0 Fam/uL Last Edit by Marilynn Han on 10/14/23 10:01 UA Specific [place] 1.025 Last Edit by Marilynn Han on 10/14/23 10:01 UA Ketone Negative Last Edit by Marilynn Han on 10/14/23 10:01 UA Bilirubin 0 mg/dL Last Edit by Marilynn Han on 10/14/23 10:01 UA Glucose 0 mg/dL Last Edit by Marilynn Han on 10/14/23 10:01 Assessment & Plan Assessment & Plan (1) Obesity: Code(s): E66.9 - Obesity, unspecified Plan: Patient has been encouraged increased exercise at the gym. He is making fairly good progress with the gym. He will continue his current meal plan and return to clinic in 3 weeks time. He is scheduled for upper GI in mid November. Coding Level of Care Code Est Pt Level 3 (19742) Diagnoses Obesity E66.9
[2023-10-14 14:04] VITALS: BP 148/91; PULSE 69; TEMP 36.2; O2SAT 97; BMI 36.3
== END 2023-10-14 14:30 | disposition home or self-care (01) ==
PROVIDERS: PCP Internal Medicine; Visit Provider Physician Assistant Surgical
DX: E66.9 Obesity, unspecified (principal); Z68.36 Body mass index [BMI] 36.0-36.9, adult
CPT/HCPCS: 99213

== ENCOUNTER 2023-11-02 09:15 | Outpatient (AMB) | payer OTHER, SELFPAY ==
--- NOTE | 2023-11-02 09:08 | A.OFFVIS_ITS ---
Intake Intake Visit Reasons: VIDEO F/U SWL Allergies bee pollen [BEE STINGS] Allergy (Unknown, Verified 10/15/23 14:47) ANAPHYLAXIS lisinopril [LISINOPRIL] Adverse Reaction (Unknown, Verified 10/15/23 14:47) COUGH SEAFOOD Allergy (Unknown, Uncoded 10/15/23 14:47) ANAPHYLAXIS shrimp Allergy (Unknown, Uncoded 10/15/23 14:47) Unknown HPI HPI Comments History of Present Illness Details The patient is a pleasant 63 year old male who returns to the clinic for pre-operative surgical weight loss management. They were last seen in the office on 10/14/23, recorded weight at that time was 275.4 pounds, with a BMI of 36.3. Patient's scale was not working appropriately and he was unable to give me a wait for today's appointment. Pre op work up completed as follows: SWL classes:? 02/12 BH appts: cleared-06/21/23 ? ? RD appts: f/u 09/06/23 Labs: 05/26/23-low D, B12:303 H. pylori: 05/25/23-pos, re-test 08/09/23-neg CXR: 05/26/23-nad EK05/26/23 1st degree AV block-06/20/23 nuc stress likely normal, consider echo, ordered 06/28/23, done 07/28/23-hyperdynamic LV w EF > 70% no valvular pathology ABD U/S: recent abd CT without liver abnormality in size shape or texture UGI: 11/21/23 The patient reports he has been following the meal plan on 4 days of the week and having more food on the other days. He reports he has been sick with upper respiratory infection over the last week. He additionally states that he does not want to pursue bariatric surgery at this time. He feels as though he does not have the discipline required for postoperative portion control. I discussed the option a nonsurgical intervention to help him with portion control with the use of the [place] balloon. He states that he has money set aside and could certainly use it for that purpose. He would like to think about this for approximately a week. He is scheduled to go to [place] on vacation for several days. He states that he would appreciate a call upon his return just after the new year. one powdered Premier protein shake (ONE scoop in 8oz low fat unsweetened almond milk) at 9am-11am, another Premier protein shake with TWO scoops in 8oz almond milk at 12pm-2pm, 1 protein bar (Atkins protein bars, buy at [employer], ?[employer], [facility], or [employer]) at 3pm-5pm, dinner at 6pm (10 forks of protein and 10 forks of salad/vegetables) Drinking 64 oz water Exercise : PF 5 days per week, treadmill 3.5 incline 0-6, PFSH Medical History Poor urinary stream Benign prostatic hyperplasia with lower urinary tract symptoms Malignant neoplasm of right kidney Renal mass Complex renal cyst Surgical History Hx of hernia repair Hx of kidney removal Social History Alcohol intake: current Alcohol intake frequency: a few times a week Patient Tobacco Use Status: Never used Tobacco Assessment & Plan Assessment & Plan (1) Morbid obesity: Code(s): E66.01 - Morbid (severe) obesity due to excess calories Plan: Patient states that he does not wish to pursue a surgical intervention as he feels as though he does not have the discipline for postoperative meal plan restrictions. He is going to consider placement of the gastric balloon. We will call him upon his return from his vacation in [place] as he states he would like to think about the placement of the balloon. He does state that he has the money set aside for this. He was encouraged to continue to follow the meal plan as laid out to him. Unfortunately his scale was broken and was unable to provide me a weight today for further recommendations. He has been sick over the last 1 week although is improving and has been encouraged to return to the gym. Telehealth Telehealth Location of provider rendering services: practice address Location of patient: address on file Patient Identification confirmed using: Name, : Yes Telehealth method: voice only Patient verbally consented to treatment: Yes Patient verbally consented to billing insurance company: Yes Patient informed of any privacy concerns related to visit: Yes Minutes spent on Phone/Video with Pt.: 15 Coding Level of Care Code Tele Est Pt Level 3 (73671) Diagnoses Morbid obesity E66.01
== END 2023-11-02 09:30 | disposition home or self-care (01) ==
LOC: HO.HBS 09:15
PROVIDERS: PCP Internal Medicine; Visit Provider Physician Assistant Surgical
DX: E66.01 Morbid (severe) obesity due to excess calories (principal)
CPT/HCPCS: 99213

== ENCOUNTER → 2023-11-02 09:15 | Outpatient (BNVA) | payer OTHER, SELFPAY | PROVIDERS: PCP Internal Medicine; Visit Provider Physician Assistant Surgical ==

== ENCOUNTER 2024-10-08 10:08 | Outpatient (REF) | payer OTHER, SELFPAY | END 2024-10-08 10:09 | disposition home or self-care (01) | LOC: HO.US 10:08 | PROVIDERS: PCP Internal Medicine; Visit Provider Nurse Practitioner Family | DX: C64.1 Malignant neoplasm of right kidney, except renal pelvis (principal) | CPT/HCPCS: 76775 ==

== ENCOUNTER 2024-10-15 09:32 | Outpatient (AMB) | payer OTHER, SELFPAY ==
--- NOTE | 2024-10-15 09:32 | A.OFFVIS_ITS ---
Intake Visit Reasons: 1y/US/labs Intake Note: Patient is present for 1Y follow up/US/LABS Urology Medication: tadalafil,TAMSULOSIN Blood Thinners: None ALLERGIES:NONE Submersible Pilot Required: No Accompanied by: Self / Same As Patient Allergies bee pollen [BEE STINGS] Allergy (Unknown, Verified 10/15/24 10:03) ANAPHYLAXIS lisinopril [LISINOPRIL] Adverse Reaction (Unknown, Verified 10/15/24 10:03) COUGH SEAFOOD Allergy (Unknown, Uncoded 10/15/24 10:03) ANAPHYLAXIS shrimp Allergy (Unknown, Uncoded 10/15/24 10:03) Unknown Medication List - Last Reconciled 10/15/24 by JUAN Saucedo cetirizine 10 mg PO DAILY cholecalciferol (vitamin D3) 125 mcg PO DAILY 90 days epinephrine 1 IM DIRECTED fluticasone propionate 50 mcg/actuation 1 spray intranasal BID hydrochlorothiazide 25 mg PO DAILY losartan 25 mg PO DAILY metoprolol succinate ER 100 mg PO DAILY tadalafil 5 mg PO DAILY PRN 90 days HPI Comments Details: Mr. Pierson is very pleasant 64-year-old male patient of Dr. Hardin. He has a past medical history of obesity, hypertension, renal cancer, nephrolithiasis, BPH, and erectile dysfunction. In discussion with the patient today he reports to be doing and feeling well. He discusses since his last office visit here approximately 1 year ago he has since stopped taking tamsulosin as he feels it has not been helpful in episodes of nocturia, urinary urgency, and urinary frequency. He reports having followed up with Dr. Soto his cash specialist and has discontinued his amlodipine and started losartan. He reports compliance with tadalafil as prescribed. He continues to report episodes of urinary urgency, urinary frequency, and nocturia however feels he would like to continue with surveillance monitoring in decreasing fluid consumption prior to bed. Recent renal imaging results reviewed with the patient today........ He otherwise denies hematuria, dysuria, foul smelling urine, changes to urinary stream, flank pain, fever, and or chills. In office urinalysis results reviewed with the patient today. PSAs are as follows 01/26 1.6, 10/29 1.5, 10/30 1.3 BUN: 05/29 15, 12/24 21 Creatinine: 05/29 1.38, 10/30 1.39 PREVIOUS OFFICE NOTE Renal cancer - right nephrectomy 2017 pT2 grade 2 They present for continued followup and management, left side, renal cancer. The renal mass was diagnosed incidentally, during evaluation for, GI symptoms. Imaging included 11/21 , a CT (computed tomography) scan of the abdomen/pelvis - 6cm renal complex cyst without enhancement 12/24 - , a CT (computed tomography) scan of the abdomen/pelvis - no contrast - renal cyst on right kidney lower pole. 12/24 - MRI with contrast - enhancement of posterior wall of renal cyst, 8.5 cm 05/23 , an MRI of the abdomen - renal cyst with enhancement enhancement of rim 02/22 , a CT (computed tomography) scan of the abdomen/pelvis, no issues, left 1.0cm stone 07/25 , a renal ultrasound left 1cm stone, 1cm cyst 12/27 , a renal ultrasound left 1 cm cyst, 06/26 chest x-ray normal - 12/28 renal ultrasound no stones, 07/28 chest x-ray normal - 12/29 renal ultrasound left renal cyst x3 with 4 mm stone - 06/28 renal ultrasound left renal cyst x3, no stone Prior treatment(s) included surveillance 08/23 , nephrectomy, right. Staging of initial cancer 08/23 , T2, with no positive lymph nodes, without vena cava involvement, without metastasis. The diagnosis was 08/23 , renal cell carcinoma, Grade II. Current symptoms include hematuria No dysuria No fever No chills No Recent labs include 08/23 Preop , a creatinine 1.3. Planned therapeutic plan further surveillance with imaging and laboratory investigations appropriate for pathology findings and patient performance statu s. Nephrolithiasis/Urolithiasis: No stones Responding to Viagra for UD Hernia well-healed. They are here for further evaluation of nephrolithiasis. They present for evaluation of back pain none flank pain none abdominal pain none The patient previously had kidney stones whose composition w 10/24 , calcium oxalate - monohydrate 80%. Laboratory investigations include no recent labs. 24 Hour urine evaluation 10/24 , Good Volume > 2.00 L, Low calcium < 200, High Citrate - , High Sodium (> 100mEq), High oxalate > 30mg 05/25 Volu 1.2, Na 208, Oxalate 48. Prior treatment(s) include 09/24 , left, ureteroscopy. Prior imaging includes 03/24 , a CT (computed tomography) scan of the abdomen/pelvis (stone protocol), showing radiodense stone(s) 1.0cm on left side 10/24 , a renal ultrasound 6mm left renal 04/25 , a renal ultrasound no stones. The stone's maximum size is 5-10mm. Current therapeutic plan will be to continue with imaging surveillance [facility] Medical History Poor urinary stream Benign prostatic hyperplasia with lower urinary tract symptoms Malignant neoplasm of right kidney Renal mass Complex renal cyst Surgical History Hx of hernia repair Hx of kidney removal Social History Alcohol intake: current Alcohol intake frequency: a few times a week Patient Tobacco Use Status: Never used Tobacco Review of Systems Const All systems reviewed & are unremarkable except as noted in HPI and below Eyes Reports no additional complaints ENT Reports no additional complaints Card Reports as per HPI Resp Reports no additional complaints GI Reports as per HPI Reports as per HPI Musc Reports no additional complaints Neuro Reports no additional complaints Psych Reports no additional complaints Endo Reports no additional complaints Jeyson/Lymph Reports no additional complaints Aller/Immun Reports no additional complaints Physical Exam Const General: cooperative, healthy appearing, comfortable, no acute distress, well developed, alert and awake Nutritional Appearance: overweight Orientation/consciousness: patient oriented x3 Limitations: no limitations HEENT Head: Yes normal to inspection, Yes normocephalic and Yes atraumatic Ears: hearing grossly normal bilaterally Eyes General: appearance normal, both eyes and all related structures Neck Neck: Yes normal visual inspection and Yes trachea midline Chest Chest palpation & inspection: normal inspection of the chest Resp Effort & Inspection: normal respiratory effort and able to speak in complete sentences Cardio Rate: regular rate GI Inspection: Yes normal to inspection General: Yes no CVA tenderness Back/Spine/Pelvis Back: no CVA tenderness Skin General skin exam: no rashes or lesions noted Neuro General: patient oriented x3 Extrem General: Yes normal to inspection Psych Appearance: grossly normal and well kempt Mental Status: mental status grossly normal Speech and movement: Normal speech and movement present and Clear speech present Affect: normal affect Attitude: cooperative Thought process: Normal thought process present Thought content: Normal thought content present Insight: Good insight present (Psych) Judgement: Good judgement present (Psych) Results AMB Urinalysis, Automated UA Leukoctes 0 [place]/uL Last Edit by MILLICENT Pierce on 10/15/24 09:45 UA Nitrite Negative Last Edit by Killian Campa CCM on 10/15/24 09:45 UA Urobilinogen 0.2 mg/dL Last Edit by Killian Campa CCM on 10/15/24 09:4 5 UA Protein 30 mg/dL Last Edit by Killian Campa [facility] on 10/15/24 09:45 UA pH 6.0 Last Edit by Killian Campa CCM on 10/15/24 09:45 UA Blood 10 Fam/uL Last Edit by Killian Campa [facility] on 10/15/24 09:45 UA Specific [place] 1.030 Last Edit by Killian Campa [facility] on 10/15/24 09: 45 UA Ketone Negative Last Edit by Killian Campa CCM on 10/15/24 09:45 UA Bilirubin 0 mg/dL Last Edit by Killian Campa [facility] on 10/15/24 09:45 UA Glucose 0 mg/dL Last Edit by Killian Campa [facility] on 10/15/24 09:45 Results Reviewed Results Reviewed: Laboratory Last Values Urine pH (Auto) 6.0 10/15/24 09:44 Specific [place] (Auto) 1.030 10/15/24 09:44 Urine Protein (Auto) 30 mg/dL 10/15/24 09:44 Glucose (UA)(Auto) 0 mg/dL 10/15/24 09:44 Urine Ketones (Auto) Negative 10/15/24 09:44 Urine Blood (Auto) 10 Fam/uL 10/15/24 09:44 Urine Nitrite (Auto) Negative 10/15/24 09:44 Urine Bilirubin (Auto) 0 mg/dL 10/15/24 09:44 Urine Urobilinogen (Auto) 0.2 mg/dL 10/15/24 09:44 Leukocyte Esterase (Auto) 0 [place]/uL 10/15/24 09:44 Assessment & Plan Assessment & Plan (1) Nephrolithiasis: Code(s): N20.0 - Calculus of kidney Category: Medical (2) Erectile dysfunction: Code(s): N52.9 - Male erectile dysfunction, unspecified Category: Medical (3) Malignant neoplasm of right kidney: Comment: Nephrectomy 2016 Code(s): C64.1 - Malignant neoplasm of right kidney, except renal pelvis Category: Medical (4) Renal cyst: Code(s): N28.1 - Cyst of kidney, acquired Category: Medical (5) Proteinuria: Code(s): R80.9 - Proteinuria, unspecified Category: Medical Plan In office urinalysis results reviewed with the patient today; as noted above Recent renal imaging results with the patient today; as noted above. Recent BUN, creatinine, and PSA results reviewed with the patient today; as not ed above. Will continue with surveillance monitoring of nocturia, urinary urgency, and urinary frequency. Stop Flomax. Continue low-dose Cialis as prescribed. Continue to follow-up with nephrology as planned. Will continue with surveillance monitoring of renal cysts and renal cancer. Will obtain renal ultrasound in 1 year Follow-up in 3 months with PVR to reassess nocturia, urinary urgency, and urinary frequency; or sooner with any issues, concerns, and or questions. Orders: Orders AMB Urinalysis Automated Today Z13.9 - Encounter for screening, unspecified US renal BI 1 Year N20.0 - Calculus of kidney Medications: Discontinued tamsulosin Discontinued Reason: Patient no longer taking 0.4 mg PO BEDTIME 90 days 90 caps 3RF N40.1 - Benign prostatic hyperplasia with lower urinary tract symptoms, R35.1 - Nocturia Patient Instructions: The patient had an opportunity to ask questions regarding the treatment plan. All questions were answered. Physical exam, labs, and imaging were discussed and reviewed in detail. As well as risks, benefits, and discussion of treatment choices. No major barriers to understanding were identified. The patient expressed understanding and agreement with the above treatment plan. The patient was made aware they should contact our office by phone for worsening of their current condition, the appearance of new symptoms, or with any questions or concerns. Compliance is encouraged with any medications and follow up testing that is ordered. It is a privilege to be allowed the opportunity to participate in? your urological care.? Again, if you have any questions or concerns If you have any questions or concerns please do not hesitate to contact me. The office is [phone]. This note is constructed using voice recognition software. While every effort has been made to ensure accuracy farm equipment technician errors may have been included. Yours sincerely, JUAN Saucedo Coding Level of Care Code Est Pt Level 3 (91202) Complex EM visit Add On G2211 Diagnoses Nephrolithiasis N20.0 Erectile dysfunction N52.9 Malignant neoplasm of right kidney C64.1 Renal cyst N28.1 Proteinuria R80.9
== END 2024-10-15 10:06 | disposition home or self-care (01) ==
PROVIDERS: PCP Internal Medicine; Visit Provider Nurse Practitioner Family
DX: Z13.9 Encounter for screening, unspecified (principal)

== ENCOUNTER → 2024-10-15 09:32 | Outpatient (BNVA) | payer OTHER, SELFPAY | PROVIDERS: PCP Internal Medicine; Visit Provider Nurse Practitioner Family | DX: N20.0 Calculus of kidney (principal); N52.9 Male erectile dysfunction, unspecified; C64.1 Malignant neoplasm of right kidney, except renal pelvis; N28.1 Cyst of kidney, acquired; R80.9 Proteinuria, unspecified | CPT/HCPCS: 81003; 99212 ==

== ENCOUNTER 2025-01-14 11:18 | Outpatient (AMB) | payer OTHER, SELFPAY ==
--- NOTE | 2025-01-14 11:21 | A.OFFVIS_ITS ---
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: No Accompanied by: Self / Same As Patient Allergies bee pollen [BEE STINGS] Allergy (Unknown, Verified 01/14/25 11:56) ANAPHYLAXIS lisinopril [LISINOPRIL] Adverse Reaction (Unknown, Verified 01/14/25 11:56) COUGH SEAFOOD Allergy (Unknown, Uncoded 01/14/25 11:56) ANAPHYLAXIS shrimp Allergy (Unknown, Uncoded 01/14/25 11:56) Unknown Medication List - Last Reconciled 01/14/25 by JUAN Saucedo cetirizine 10 mg PO DAILY epinephrine 1 IM DIRECTED fluticasone propionate 50 mcg/actuation 1 spray intranasal BID hydrochlorothiazide 25 mg PO DAILY losartan 25 mg PO DAILY metoprolol succinate ER 100 mg PO DAILY multivitamin 1 tab PO DAILY tadalafil 5 mg PO DAILY PRN 90 days HPI Comments Details: Mr. Pierson is very pleasant 65-year-old male patient of Dr. Hardin. He has a past medical history of obesity, hypertension, renal cancer, nephrolithiasis, BPH, and erectile dysfunction. In discussion with the patient today he reports to be doing and feeling well. He discusses feeling low-dose Cialis has been extremely helpful with ED however he does continue to experience nocturia, urinary urgency, and urinary frequency. He has previously trialed Flomax with no improvement in lower urinary tract symptoms. We discussed at length potential causes of lower urinary tract symptoms patient was experiencing. Patient with a longstanding history of renal cysts as well as renal cancer and undergoes surveillance monitoring with imaging. Most recent renal imaging 10/30 notes right kidney is surgically absent. No hydronephrosis or renal calculi noted bilaterally. 2.5 cm left renal upper pole cysts, previously measuring 2.3 cm. There is no specific indication for additional imaging follow-up at this time per radiology report. Additional left renal cysts largest measuring 2.8 cm difficult to characterize due to bowel gas is and body habitus. He does continue to follow-up with nephrology Dr. Soto. He otherwise denies hematuria, dysuria, foul smelling urine, changes to urinary stream, flank pain, fever, and or chills. In office urinalysis results reviewed with the patient today. PVR 13. PSAs are as follows 01/26 1.6, 10/29 1.5, 10/30 1.3 BUN: 05/29 15, 10/30 21 Creatinine: 05/29 1.38, 10/30 1.39 PREVIOUS OFFICE NOTE Renal cancer - right nephrectomy 2016 pT2 grade 2 They present for continued followup and management, left side, renal cancer. The renal mass was diagnosed incidentally, during evaluation for, GI symptoms. Imaging included 11/21 , a CT (computed tomography) scan of the abdomen/pelvis - 6cm renal complex cyst without enhancement 12/24 - , a CT (computed tomography) scan of the abdomen/pelvis - no contrast - renal cyst on right kidney lower pole. 12/24 - MRI with contrast - enhancement of posterior wall of renal cyst, 8.5 cm 05/23 , an MRI of the abdomen - renal cyst with enhancement enhancement of rim 02/22 , a CT (computed tomography) scan of the abdomen/pelvis, no issues, left 1.0cm stone 07/25 , a renal ultrasound left 1cm stone, 1cm cyst 12/27 , a renal ultrasound left 1 cm cyst, 06/26 chest x-ray normal - 12/28 renal ultrasound no stones, 07/28 chest x-ray normal - 12/29 renal ultrasound left renal cyst x3 with 4 mm stone - 06/28 renal ultrasound left renal cyst x3, no stone Prior treatment(s) included surveillance 08/23 , nephrectomy, right. Staging of initial cancer 08/23 , T2, with no positive lymph nodes, without vena cava involvement, without metastasis. The diagnosis was 08/23 , renal cell carcinoma, Grade II. Current symptoms include hematuria No dysuria No fever No chills No Recent labs include 08/23 Preop , a creatinine 1.3. Planned therapeutic plan further surveillance with imaging and laboratory investigations appropriate for pathology findings and patient performance status. Nephrolithiasis/Urolithiasis: No stones Responding to Viagra for UD Hernia well-healed. They are here for further evaluation of nephrolithiasis. They present for evaluation of back pain none flank pain none abdominal pain none The patient previously had kidney stones whose composition w 10/24 , calcium oxalate - monohydrate 80%. Laboratory investigations include no recent labs. 24 Hour urine evaluation 10/24 , Good Volume > 2.00 L, Low calcium < 200, High Citrate - , High Sodium (> 100mEq), High oxalate > 30mg 05/25 Volu 1.2, Na 208, Oxalate 48. Prior treatment(s) include 09/24 , left, ureteroscopy. Prior imaging includes 03/24 , a CT (computed tomography) scan of the abdomen/pelvis (stone protocol), showing radiodense stone(s) 1.0cm on left side 10/24 , a renal ultrasound 6mm left renal 04/25 , a renal ultrasound no stones. The stone's maximum size is 5-10mm. Current therapeutic plan will be to continue with imaging surveillance [facility] Medical History Poor urinary stream Benign prostatic hyperplasia with lower urinary tract symptoms Malignant neoplasm of right kidney Renal mass Complex renal cyst Surgical History Hx of hernia repair Hx of kidney removal Social History Alcohol intake: current Alcohol intake frequency: a few times a week Patient Tobacco Use Status: Never used Tobacco Review of Systems Const All systems reviewed & are unremarkable except as noted in HPI and below Eyes Reports no additional complaints ENT Reports no additional complaints Card Reports as per HPI Resp Reports no additional complaints GI Reports as per HPI Reports as per HPI Musc Reports no additional complaints Neuro Reports no additional complaints Psych Reports no additional complaints Endo Reports no additional complaints Jeyson/Lymph Reports no additional complaints Aller/Immun Reports no additional complaints Physical Exam Const General: cooperative, healthy appearing, comfortable, no acute distress, well developed, alert and awake Nutritional Appearance: overweight Orientation/consciousness: patient oriented x3 Limitations: no limitations HEENT Head: Yes normal to inspection, Yes normocephalic and Yes atraumatic Ears: hearing grossly normal bilaterally Eyes General: appearance normal, both eyes and all related structures Neck Neck: Yes normal visual inspection and Yes trachea midline Chest Chest palpation & inspection: normal inspection of the chest Resp Effort & Inspection: normal respiratory effort and able to speak in complete sentences Cardio Rate: regular rate GI Inspection: Yes normal to inspection General: Yes no CVA tenderness Back/Spine/Pelvis Back: no CVA tenderness Skin General skin exam: no rashes or lesions noted Neuro General: patient oriented x3 Extrem General: Yes normal to inspection Psych Appearance: grossly normal and well kempt Mental Status: mental status grossly normal Speech and movement: Normal speech and movement present and Clear speech present Affect: normal affect Attitude: cooperative Thought process: Normal thought process present Thought content: Normal thought content present Insight: Good insight present (Psych) Judgement: Good judgement present (Psych) Office Procedures Post Void Residual Post Residual Void Post Void Residual (PVR): 13 [id number] Void Residual by ultrasound Results AMB Urinalysis, Automated UA Leukoctes 0 [place]/uL Last Edit by [employer] on 01/14/25 11:37 UA Nitrite Last Edit by [employer] on 01/14/25 11:37 UA Urobilinogen 0.2 mg/dL Last Edit by [employer] on 01/14/25 11:37 UA Protein 30 mg/dL Last Edit by [employer] on 01/14/25 11:37 UA pH 6.5 Last Edit by [employer] on 01/14/25 11:37 UA Blood 0 Fam/uL Last Edit by [employer] on 01/14/25 11:37 UA Specific [place] 1.015 Last Edit by [employer] on 01/14/25 11:37 UA Ketone Negative Last Edit by [employer] on 01/14/25 11:37 UA Bilirubin 0 mg/dL Last Edit by [employer] on 01/14/25 11:37 UA Glucose 0 mg/dL Last Edit by [employer] on 01/14/25 11:37 Results Reviewed Results Reviewed: Laboratory Last Values Urine pH (Auto) 6.5 01/14/25 11:35 Specific [place] (Auto) 1.015 01/14/25 11:35 Urine Protein (Auto) 30 mg/dL 01/14/25 11:35 Glucose (UA)(Auto) 0 mg/dL 01/14/25 11:35 Urine Ketones (Auto) Negative 01/14/25 11:35 Urine Blood (Auto) 0 Fam/uL 01/14/25 11:35 Urine Bilirubin (Auto) 0 mg/dL 01/14/25 11:35 Urine Urobilinogen (Auto) 0.2 mg/dL 01/14/25 11:35 Leukocyte Esterase (Auto) 0 [place]/uL 01/14/25 11:35 Assessment & Plan Assessment & Plan (1) Benign prostatic hyperplasia with lower urinary tract symptoms: Code(s): N40.1 - Benign prostatic hyperplasia with lower urinary tract symptoms Category: Medical Plan In office urinalysis results reviewed with the patient today; as noted above. PVR 13 mL. Continue Cialis as discussed and prescribed. Start VESIcare as discussed and prescribed. We discussed at length healthy bathroom habits. We discussed potential causes of lower urinary tract symptoms patient was experiencing as well as further workup in risks and benefits of these interventions. Will continue with surveillance monitoring of complex renal cyst; we discussed obtaining MRI renal mass protocol in the near future patient with renal ultrasound 10/30. Discussed importance of weight loss in relation to lower urinary tract symptoms as well as overall health and well-being. Follow-up in 1-3 months with PVR; or sooner with any issues, concerns, and or questions. Orders: Orders AMB Urinalysis Automated Today Z13.9 - Encounter for screening, unspecified AMB Post Void Residual by ultrasound Today N40.1 - Benign prostatic hyperplasia with lower urinary tract symptoms Medications: New solifenacin (Vesicare) 5 mg PO DAILY 30 tabs 3RF 30 days Patient Instructions: The patient had an opportunity to ask questions regarding the treatment plan. All questions were answered. Physical exam, labs, and imaging were discussed and reviewed in detail. As well as risks, benefits, and discussion of treatment choices. No major barriers to understanding were identified. The patient expressed understanding and agreement with the above treatment plan. The patient was made aware they should contact our office by phone for worsening of their current condition, the appearance of new symptoms, or with any questions or concerns. Compliance is encouraged with any medications and follow up testing that is ordered. It is a privilege to be allowed the opportunity to participate in? your urological care.? Again, if you have any questions or concerns If you have any questions or concerns please do not hesitate to contact me. The office is [phone]. This note is constructed using voice recognition software. While every effort has been made to ensure accuracy personnel administrator errors may have been included. Yours sincerely, JUAN Saucedo Coding Level of Care Code Est Pt Level 4 (37136) Complex EM visit Add On G2211 Diagnoses Benign prostatic hyperplasia with lower urinary tract symptoms N40.1 CPT Codes Post Residual Void - PVR CPT Code: 34700-Mhhd Void Residual by ultrasound ([id number])
--- OUTSIDE RECORDS SUMMARY | 2025-01-14 12:56 | XMS_ITS | Clinical Summary ---
Author Organization [facility] Address [address] [place] [address] Care Team Providers Care Patrol Lady Name Role Phone Cong Cynthia CURRY Primary Care Provider [phone] Source Comments PLEASE NOTE, if this patient is a minor, it may be UNLAWFUL to discuss sensitive information that is contained in these records (such as FAMILY PLANNING, MENTAL HEALTH or SUBSTANCE ABUSE) with the minor patient's parent or other person without the patient's specific authorization.[facility] Allergies Active Allergy Reactions Criticality Noted Date Comments Bee Sting 08/01/2013 Shrimp 08/01/2013 Medications metoprolol (TOPROL-XL) 100 mg 24 hr tablet Take 1 Tab by mouth once daily. 90 Tab 3 3 Active amLODIPine (NORVASC) 10 mg tabletIndication s:HTN (hypertension) Take 1 Tab by mouth once daily. 30 Tab 6 3 Active lisinopril-hydro chlorothiazide (PRINZIDE,ZESTOR ETIC) 20-25 mg per tabletIndication s:HTN (hypertension) Take 1 Tab by mouth once daily. 30 Tab 6 3 Active aspirin 81 mg EC tabletIndication s:HTN (hypertension) Take 1 Tab by mouth once daily. 90 Tab 3 3 Active tadalafil (CIALIS) 20 mg tabletIndication s:Erectile dysfunction Take 0.5 Tabs by mouth once daily as needed for erectile dysfunction. Do not exceed one dose in 24 hours.. Do not take with nitrates. 10 Tab 1 3 Active vitamin D 2,000 unit capsuleIndicatio ns:Vitamin D deficiency Take 1 Cap by mouth once daily. 30 Cap 6 3 Active metoprolol (TOPROL-XL) 100 mg 24 hr tablet TAKE ONE TABLET BY MOUTH EVERY DAY 30 Tab 0 4 Active losartan (COZAAR) 50 mg tablet Take 1 Tab by mouth nightly at bedtime. 30 Tab 3 5 Active Active Problems Problem Noted Date Diagnosed Date HTN (hypertension) 08/01/2013 Erectile dysfunction 08/01/2013 Vitamin D deficiency 08/01/2013 Immunizations Name Administration Dates Next Due INFLUENZA, SEASONAL, INJECTABLE 09/06/2013 TDAP 05/24/2012 Social History Tobacco Use Types Packs/Day Years Used Date Smoking Tobacco: Never Alcohol Use Standard Drinks/Week Comments Yes 2.5 (1 standard drink = 0.6 oz p ure alcohol) Sex and Gender Information Value Date Recorded Sex Assigned at Not on file Legal Sex Male 11:36 AM PDT Gender Identity Not on file Sexual Orientation Not on file Last Filed Vital Signs Vital Sign Reading Time Taken Comments Blood Pressure 148/88 09/06/2013 3:09 PM EDT Pulse 80 09/06/2013 3:09 PM EDT Temperature 36.8 ??C (98.3 ??F) 09/06/2013 3:09 PM ED T Respiratory Rate 18 09/06/2013 3:09 PM EDT Oxygen Saturation - - Inhaled Oxygen Concentration - - Weight 130.6 kg (288 lb) 09/06/2013 3:09 PM EDT Height 185.4 cm (6' 1 ) 09/06/2013 3:09 PM EDT Body Mass Index 38 09/06/2013 3:09 PM EDT Plan of Treatment Not on file Insurance [place] MEDICAID Care Teams Patrol Lady Relationship Specialty Start Date End Date Cynthia Gar PA-C [address] [place] [phone] [facility] - General 09/06/13
--- OUTSIDE RECORDS SUMMARY | 2025-01-14 12:56 | XMS_ITS | Clinical Summary ---
Author Organization [address] Address [address] [place] [id number] Phone Care Team Providers Care Ball Warper Tender Name Role Phone Marques Hardin MD Primary Care Provider [phone] Allergies Active Allergy Reactions Criticality Noted Date Comments Bee Venom Protein (Honey Bee) 2012 Lisinopril Cough 03/25/2014 Shellfish Derived 04/08/2016 Shrimp 08/01/2013 Medications clobetasoL (TEMOVATE) 0.05 % cream Apply to affected areas twice daily as needed sparingly. 11/16/19 20 Active EPINEPHrine (EpiPen 2-Boris) 0.3 mg/0.3 mL injection DIRECTED INJECT CONTENTS OF 1 PEN NEEDED FOR ALLERGIC REACTION 05/05/20 23 Active hydroCHLOROthiazi de (HYDRODIURIL) 25 mg tablet Take 1 tablet by mouth once daily 07/25/20 24 Active losartan (COZAAR) 25 mg tablet Take 1 Tablet by mouth daily for 180 days. 07/17/20 24 Active metoprolol succinate (TOPROL-XL) 100 mg 24 hr tablet Take 1 tablet by mouth once daily 07/25/20 24 Active tadalafiL (CIALIS) 5 mg tablet TAKE ONE TABLET BY MOUTH EVERY DAY NEEDED FOR SEXUAL ACTIVITY 08/12/20 21 Active tretinoin (RETIN-A) 0.025 % cream APPLY A PEA SIZED AMOUNT OF CREAM TOPICALLY TO FACE AND BACK AT BEDTIME. START WITH EVERY 3RD NIGHT FOR ONE WEEK, THEN EVERY OTHER NIGHT FOR ONE WEEK, THEN NIGHTLY. 06/24/20 23 Active medical supply, miscellaneous (MISCELLANEOUS MEDICAL SUPPLY MISC) Inhale into the lungs at bedtime. CPAP Active nystatin (Nystop) 100,000 unit/gram powder Apply topically 2 (two) times a day. 15 g 1 12/11/19 25 Active methylPREDNISolon e (MEDROL) 4 mg tablet Take 6 tabs PO on day 1, 5 tabs PO on day 2, 4 tabs PO on day 3, 3 tabs PO on day 2, 2 tabs PO on day 5 and 1 tab PO on day 6. 21 tablet 12/11/19 25 Active fluticasone propionate (FLONASE) 50 mcg/actuation nasal spray USE 2 SPRAY(S) IN EACH NOSTRIL ONCE DAILY FOR 3-4 WEEKS, THEN DECREASE TO 1 SPRAY IN EACH NOSTRIL DAILY 24 g 12/26/19 25 Active Allergy Relief, cetirizine, 10 mg tablet Take 1 tablet by mouth once daily 90 tablet 1 01/01/20 25 Active cetirizine (ZyrTEC) 10 mg tablet Take 1 Tablet by mouth daily. 01/30/20 24 025 Discontinued fluticasone propionate (FLONASE) 50 mcg/actuation nasal spray 1 [place] by Nasal route daily. Please spray 2 sprays in each nostrils daily for 3-4 weeks, then down to 1 spray in each nostril daily. 09/09/20 22 025 Discontinued Active Problems Problem Noted Date Diagnosed Date MALI (obstructive sleep apnea) 10/16/2024 Overview (10/16/2024): [facility] Split Night Polysomnogram Date 11/14/2017. SE 85 % SM 86 %. Without PAP: in REM for 0 % of this phase. RDI 102 (AHI 102), Central apneas 0; Obstructive apneas 157; Mixed apneas 1; hypopneas 13; RERAs 1; average oxygen saturation 93% (lowest 77%); PLMs 5. With PAP: in REM for 19 % of this phase. At the optimal pressure of 16 via CPAP; RDI 3.8 (AHI 3.8), Central apneas 4; Obstructive apneas 0; Mixed apneas 0; hypopneas 0; RERAs 0; and, average oxygen saturation was 96%; PLMs ~5. BPH (benign prostatic hyperplasia) 09/02/2021 Overview (10/16/2024): Followed by [facility] (Dr. Gary Bobby) Malignant neoplasm of right kidney 10/01/2020 Overview (10/16/2024): Follows with Dr.Alexander Bobby. 11/2016 CT abdomen showed complex 8.6 right sided renal cyst. S/p right sided nephrectomy. Staging was T2, no positive lymph nodes or mestatsis. Follows regulary with urology for maintenance/surveillance and monitoring. Incisional hernia of anterio r abdominal wall without obstruction or gangrene 02/16/2019 CKD (chronic kidney disease) stage 3, GFR 30-59 ml/min 07/12/2018 Diverticulosis of intestine without bleeding Normocytic anemia 06/04/2015 Overview (10/16/2024): Saw Heme, felt to be normal variant Prediabetes 09/13/2014 Fatty liver 09/12/2014 HTN (hypertension) 09/12/2014 Obesity 09/12/2014 Encounters Date Type Department Care Team Description 12/11/2024 10:32 AM EST - 12/11/2024 11:59 PM EST Hospital Encounter [address] [phone] Acute pain of right shoulder Discharge Disposition: Home or Self Care 12/11/2024 10:00 AM EST Office Visit Adult Medicine [address] [phone] Dorothy Almeida NP Acute pain of right shoulder (Primary Dx) 12/04/2024 Telephone Adult Medicine [address] [phone] Marques Hardin MD Arm Pain (Right side ) from Last 3 Months Immunizations Name Administration Dates Next Due Influenza Quadravalent, MDCK , 0.5ml, with preservative (Flucelvax) 6mo and older 10/05/2017 Influenza trivalent, 0.5mL, preservative free (Fluarix; FluLaval; Fluzone) ages 6mo and older (Afluria) 3 years and older 07/24/2019,10/02/2014 Pfizer SARS-CoV-2 COVID-19, mRNA, LNP-S, preservative free 12/04/2021 Surgical History Surgery Date Site/Laterality Comments BACK SURGERY 09/2000 PROCEDURE: HISTORICAL BACK SURGERY; COMMENT: L5 NEPHRECTOMY 08/29/2017 Right PROCEDURE: HISTORICAL NEPHRECTOMY; 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 Medical History Medical History Date Comments HTN (hypertension) DX:HTN (hyper tension) Low back pain DX:Low back pain MALI (obstructive sleep apnea) DX :MALI (obstructive sleep apnea); COMMENT: severe Alcohol use DX:Alcohol use Lesion of spleen DX:Lesion of sp elio Diverticulosis DX:Diverticulosi s Bilateral kidney masses DX:Bilat eral kidney masses Papillary renal cell carcino ma (CMS/HCC) 08/29/2017 DX:Papillary renal cell carc inoma (HCC) Diverticulosis of intestine without bleeding 12/22/2016 DX:Diverticulosis of intesti ne without bleeding Fatty liver 09/12/2014 DX:Fatty liver History of kidney cancer 09/12/2014 DX:Hist ory of kidney cancer; COMMENT: Papillary renal cell cancer type 1, right total nephrectomy 08/29/17 Normocytic anemia 06/04/2015 DX:Normocytic anemia; COMMENT: Saw Heme, felt to be normal variant Obesity 09/12/2014 DX:Obesity Prediabetes 09/13/2014 DX:Prediabetes History of nephrectomy DX:Histor y of nephrectomy BPH with obstruction/lower u rinary tract symptoms 09/02/2021 DX:BPH with obstruction/lowe r urinary tract symptoms; COMMENT: Followed by [facility] (Dr. Gary Bobby) Family History Medical History Relation Name Comments Other: kidney disease Brother Relation Name Status Comments Brother Father unknown, ID? ag e 50's Mother Social History Tobacco Use Types Packs/Day Years Used Date Smoking Tobacco: Never Smokeless Tobacco: Never Alcohol Use Standard Drinks/Week Comments Yes 0 (1 standard drink = 0.6 oz pur e alcohol) Sex and Gender Information Value Date Recorded Sex Assigned at Not on file Legal Sex Male 11:55 AM EST Gender Identity Not on file Sexual Orientation Not on file Obstetrics History Last Filed Vital Signs Vital Sign Reading Time Taken Comments Blood Pressure 136/80 12/11/2024 10:07 AM EST Pulse 65 12/11/2024 10:07 AM EST Temperature 36.6 ??C (97.9 ??F) 12/11/2024 10:[address] Respiratory Rate 12 12/11/2024 10:07 AM EST Oxygen Saturation - - Inhaled Oxygen Concentration - - Weight 131 kg (288 lb) 12/11/2024 10:07 AM EST Height 185.4 cm (6' 1 ) 12/11/2024 10:07 AM EST Body Mass Index 38 12/11/2024 10:07 AM EST Plan of Treatment Upcoming Encounters Date Type Department Care Team (Late st Contact Info) Description 01/30/2025 9:45 AM EDT Office Visit Adult Medicine [facility] [address] [place] [phone] Marques Hardin MD [address] [place] [address] 02/11/2025 10:00 AM EDT Office Visit General Surgery - [place] [address] [phone] [place], DO [address] [address] Health Maintenance Due Date Last Done Comments Pneumococcal Vaccine: 50+ Years (1 of 2 - PCV) 01/06/1980 Pneumococcal Vaccine: Pediatrics (0 to 5 Years) and At-Risk Patients (6 to 64 Years) (1 of 2 - PCV) 01/06/1980 Zoster Vaccines (1 of 2) 01/06/1980 COVID-19 Vaccine (2 - Pfizer risk series) 12/25/2021 12/04/2021 DTaP,Tdap,and Td Vaccines (2 - Td or Tdap) 05/24/2022 05/24/2012 Depression Screening 10/16/2022 Social Influencers of Health Screening 10/16/2022 Influenza Vaccine (#1) 2024 9, 10/05/2017, 10/02/2014, Additional history exists Hypertension/CHF/CAD Annual BMP Blood Test 10/12/2025 10/12/2024, 07/30/2024, 07/30/2024 Cholesterol Screening (Lipid Panel) 02/01/2029 02/02/2024 Colorectal Cancer Screening: Colonoscopy 04/04/2034 04/04/2024 RSV Immunization Patients 60+ Years Old (1 - 1-dose 75+ series) 01/06/2036 HIV Screening Completed 02/02/2024 Hepatitis C Screening Completed 02/02/2024 HIB Vaccines Aged Out No longer eligi ble based on patient's age to complete this topic HPV Vaccines Aged Out No longer eligi ble based on patient's age to complete this topic Hepatitis A Vaccines Aged Out No long er eligible based on patient's age to complete this topic Hepatitis B Vaccines Aged Out No long er eligible based on patient's age to complete this topic IPV Vaccines Aged Out No longer eligi ble based on patient's age to complete this topic MMR Vaccines Aged Out No longer eligi ble based on patient's age to complete this topic Meningococcal ACWY Vaccine Aged Out N o longer eligible based on patient's age to complete this topic Meningococcal B Vacine Aged Out No lo nger eligible based on patient's age to complete this topic RSV Immunization Patients Under 20 months Aged Out No longer eligible based on patient's age to complete this topic Varicella Vaccines Aged Out No longer eligible based on patient's age to complete this topic Procedures Procedure Name Priority Date/Time Associated Diagnosis Comments XR SHOULDER 2+ VIEWS RIGHT Routine 12/11/2024 10:44 AM EST Acute pain of right shoulder EXTERNAL ULTRASOUND REPORT 11/25/2024 EXTERNAL ULTRASOUND REPORT 11/25/2024 CREATININE, SERUM Routine 10/12/2024 11: 03 AM EST Malignant neoplasm of right kidney, except renal pelvis (CMS/HCC) Benign prostatic hyperplasia with lower urinary tract symptoms COLONOSCOPY Routine 04/04/2024 HEPATITIS C SCREENING Routine 02/02/2024 HIV SCREENING Routine 02/02/2024 LIPID PANEL Routine 02/02/2024 from Last 3 Months or Most Recently Relevant to Health Maintenance Results * XR Shoulder 2+ Views Right (12/11/2024 10:44 AM EST) Anatomical Region Laterality Modality Upper Extremities, Shoulder Right Radi ographic Imaging 12/11/2024 6:11 PM EST Impressions 12/11/2024 6:14 PM EST No acute fracture or dislocation. -------- FINAL REPORT -------- Dictated By: Milena Silva Dictated Date: 12/11/2024 18:11 ET Assigned Physician: Milena Silva Reviewed and Electronically Signed By: Milena Silva Signed Date: 12/11/2024 18:14 ET Workstation ID: [id number] Transcribed By: Self Edit Transcribed Date: 12/11/2024 18:11 ET Narrative 12/11/2024 6:14 PM EST XR SHOULDER 2+ VIEWS RIGHT Reason: pain Comparison: None FINDINGS: No acute fracture. ??Depression of the lateral aspect of the humeral head may be a Hill-Sachs deformity from remote dislocation. ??Moderate degenerative changes at the acromioclavicular joint. ??Narrowing of the glenohumeral joint space. Procedure Note Milena Silva MD - 12/11/2024 XR SHOULDER 2+ VIEWS RIGHT Reason: pain Comparison: None FINDINGS: No acute fracture. Depression of the lateral aspect of the humeral headmay be a Hill-Sachs deformity from remote dislocation. Moderatedegenerative changes at the acromioclavicular joint. Narrowing of theglenohumeral joint space. IMPRESSION: No acute fracture or dislocation. -------- FINAL REPORT -------- Dictated By: Milena Silva Dictated Date: 12/11/2024 18:11 ET Assigned Physician: Milena Silva Reviewed and Electronically Signed By: Milena Silva Signed Date: 12/11/2024 18:14 ET Workstation ID: [id number] Transcribed By: Self Edit Transcribed Date: 12/11/2024 18:11 ET us Dorothy Almeida NP IMG XR PROCEDURES Final Resu lt * External Ultrasound Report (11/25/2024) Only the most recent of2 resultswithin the time period is included. Anatomical Region Laterality Modality Ultrasound Provider Onbase IMG US PROCEDURES Final Resul t * (ABNORMAL) Creatinine (10/12/2024 11:03 AM EST) [facility] Creatinine 1.39(H) 0.70 - 1.30 mg/dL LAB CHEMISTRY METHOD 10/12/2024 2:47 PM EST [facility] eGFR 57(L) >=60 mL/min/1. 73m2 LAB CHEMISTRY METHOD 10/12/2024 2:47 PM EST [facility] Comment:Calculation based on the??Chronic Kidney Disease Epidemiology Collaboration (CKD-EPI) equation refit??without adjustment for race. Blood Venous blood specimen / Unknown Venipuncture / Unknown 10/12/2024 11:03 AM EST 10/12/2024 11:03 AM EST [facility] BLOOD ORDERABLES Final Result [facility] [address] [place] [address], [place] [phone] * Colonoscopy (04/04/2024) [facility] Colonoscopy abstracted, no interpretation Anatomical Region Laterality Modality Other Historical Provider HEALTH MAINTENANCE Final Result * HIV Screening (02/02/2024) [facility] HIV Screening abstracted Historical Provider HEALTH MAINTENANCE Final Result * Hepatitis C Screening (02/02/2024) [facility] Hepatitis C Screening abstracted Historical Provider HEALTH MAINTENANCE Final Result * Lipid panel (02/02/2024) [facility] LDL/HDL Ratio 4 0 - 4 Triglycerides 115 0 - 150 mg/dL Cholesterol 162 0 - 200 mg/dL HDL 45 >=40 mg/dL LDL Cholesterol 94 0 - 100 mg/dL Blood Venous blood specimen / Unknown Historical Provider LAB BLOOD ORDERABLES Caren l Result from Last 3 Months or Most Recently Relevant to Health Maintenance Insurance [facility] [employer] Care Teams Ball Warper Tender Relationship Specialty Start Date End Date Marques Hardin MD [address] [place] [id number] PCP - General Internal Medicine 12/11/24
== END 2025-01-14 11:56 | disposition home or self-care (01) ==
PROVIDERS: PCP Internal Medicine; Visit Provider Nurse Practitioner Family
DX: N40.1 Benign prostatic hyperplasia with lower urinary tract symptoms (principal); Z13.9 Encounter for screening, unspecified
CPT/HCPCS: 99214; G2211

== ENCOUNTER → 2025-01-14 11:18 | Outpatient (BNVA) | payer OTHER, SELFPAY | PROVIDERS: PCP Internal Medicine; Visit Provider Nurse Practitioner Family | DX: N40.1 Benign prostatic hyperplasia with lower urinary tract symptoms (principal); R35.1 Nocturia; R35.0 Frequency of micturition; R39.15 Urgency of urination; N52.9 Male erectile dysfunction, unspecified; Z87.442 Personal history of urinary calculi; Z85.528 Personal history of other malignant neoplasm of kidney; Z90.5 Acquired absence of kidney | CPT/HCPCS: 51798; 81003; 99212 ==

== ENCOUNTER 2025-04-16 11:38 | Outpatient (AMB) | payer OTHER, SELFPAY ==
--- NOTE | 2025-04-16 11:53 | MHC.OFFVIS ---
Intake Visit Reasons: 3m/PSA/PVR Intake Note: Patient presents today for follow up on: nocturia, frequency, urgency Urology Medication: tadalafil, solifenacin Blood Thinners: None ALLERGIES:NONE PVR: 8ml's Rn Vascular Required: No Accompanied by: Self / Same As Patient Allergies bee pollen [BEE STINGS] Allergy (Unknown, Verified 04/16/25 22:26) ANAPHYLAXIS lisinopril [LISINOPRIL] Adverse Reaction (Unknown, Verified 04/16/25 22:26) COUGH SEAFOOD Allergy (Unknown, Uncoded 04/16/25 22:26) ANAPHYLAXIS shrimp Allergy (Unknown, Uncoded 04/16/25 22:26) Unknown Medication List - Last Reconciled 04/16/25 by JUAN Saucedo cetirizine 10 mg PO DAILY epinephrine 1 IM DIRECTED fluticasone propionate 50 mcg/actuation 1 spray intranasal BID hydrochlorothiazide 25 mg PO DAILY losartan 25 mg PO DAILY metoprolol succinate ER 100 mg PO DAILY multivitamin 1 tab PO DAILY solifenacin (Vesicare) 5 mg PO DAILY 30 days tadalafil 5 mg PO DAILY PRN 90 days HPI Comments Details: Mr. Pierson is very pleasant 65-year-old male patient of Dr. Hardin. He has a past medical history of obesity, hypertension, renal cancer, nephrolithiasis, BPH, and erectile dysfunction. In discussion with the patient today he reports to be doing and feeling well. He denies having had any bothersome urinary issues or concerns since his last office visit here. He continues with low-dose Cialis as well as VESIcare and feels he is happy with his current voiding parameters with this combination. Recent labs were reviewed with the patient today as noted and trended below. Previous workup for patient's longstanding history of renal cysts as well as renal cancer 10/30 renal u/s notes right kidney is surgically absent. No hydronephrosis or renal calculi noted bilaterally. 2.5 cm left renal upper pole cysts, previously measuring 2.3 cm. There is no specific indication for additional imaging follow-up at this time per radiology report. Additional left renal cysts largest measuring 2.8 cm difficult to characterize due to bowel gas is and body habitus. He does continue to follow-up with nephrology Dr. Soto. He denies hematuria, dysuria, foul smelling urine, changes to urinary stream, flank pain, fever, and or chills. In office urinalysis results reviewed with the patient today. PVR 8 mLs. PSA: 01/26 1.6, 10/29 1.5, 10/30 1.3 BUN: 05/29 15, 10/30 21, 01/29 16 Creatinine: 05/29 1.38, 10/30 1.39, 01/29 1.39 PREVIOUS OFFICE NOTE Renal cancer - right nephrectomy 2016 pT2 grade 2 They present for continued followup and management, left side, renal cancer. The renal mass was diagnosed incidentally, during evaluation for, GI symptoms. Imaging included 11/21 , a CT (computed tomography) scan of the abdomen/pelvis - 6cm renal complex cyst without enhancement 12/24 - , a CT (computed tomography) scan of the abdomen/pelvis - no contrast - renal cyst on right kidney lower pole. 12/24 - MRI with contrast - enhancement of posterior wall of renal cyst, 8.5 cm 05/23 , an MRI of the abdomen - renal cyst with enhancement enhancement of rim 02/22 , a CT (computed tomography) scan of the abdomen/pelvis, no issues, left 1.0cm stone 07/25 , a renal ultrasound left 1cm stone, 1cm cyst 12/27 , a renal ultrasound left 1 cm cyst, 06/26 chest x-ray normal - 12/28 renal ultrasound no stones, 07/28 chest x-ray normal - 12/29 renal ultrasound left renal cyst x3 with 4 mm stone - 06/28 renal ultrasound left renal cyst x3, no stone Prior treatment(s) included surveillance 08/23 , nephrectomy, right. Staging of initial cancer 08/23 , T2, with no positive lymph nodes, without vena cava involvement, without metastasis. The diagnosis was 08/23 , renal cell carcinoma, Grade II. Current symptoms include hematuria No dysuria No fever No chills No Recent labs include 08/23 Preop , a creatinine 1.3. Planned therapeutic plan further surveillance with imaging and laboratory investigations appropriate for pathology findings and patient performance status. Nephrolithiasis/Urolithiasis: No stones Responding to Viagra for UD Hernia well-healed. They are here for further evaluation of nephrolithiasis. They present for evaluation of back pain none flank pain none abdominal pain none The patient previously had kidney stones whose composition w 10/24 , calcium oxalate - monohydrate 80%. Laboratory investigations include no recent labs. 24 Hour urine evaluation 10/24 , Good Volume > 2.00 L, Low calcium < 200, High Citrate - , High Sodium (> 100mEq), High oxalate > 30mg 05/25 Volu 1.2, Na 208, Oxalate 48. Prior treatment(s) include 09/24 , left, ureteroscopy. Prior imaging includes 03/24 , a CT (computed tomography) scan of the abdomen/pelvis (stone protocol), showing radiodense stone(s) 1.0cm on left side 10/24 , a renal ultrasound 6mm left renal 04/25 , a renal ultrasound no stones. The stone's maximum size is 5-10mm. Current therapeutic plan will be to continue with imaging surveillance PFSH Medical History Poor urinary stream Benign prostatic hyperplasia with lower urinary tract symptoms Malignant neoplasm of right kidney Renal mass Complex renal cyst Surgical History Hx of hernia repair Hx of kidney removal Social History Alcohol intake: current Alcohol intake frequency: a few times a week Patient Tobacco Use Status: Never used Tobacco Review of Systems Const All systems reviewed & are unremarkable except as noted in HPI and below Eyes Reports no additional complaints ENT Reports no additional complaints Card Reports as per HPI Resp Reports no additional complaints GI Reports as per HPI Reports as per HPI Musc Reports no additional complaints Neuro Reports no additional complaints Psych Reports no additional complaints Endo Reports no additional complaints Jeyson/Lymph Reports no additional complaints Aller/Immun Reports no additional complaints Physical Exam Const General: cooperative, healthy appearing, comfortable, no acute distress, well developed, alert and awake Nutritional Appearance: overweight Orientation/consciousness: patient oriented x3 Limitations: no limitations HEENT Head: Yes normal to inspection, Yes normocephalic and Yes atraumatic Ears: hearing grossly normal bilaterally Eyes General: appearance normal, both eyes and all related structures Neck Neck: Yes normal visual inspection and Yes trachea midline Chest Chest palpation & inspection: normal inspection of the chest Resp Effort & Inspection: normal respiratory effort and able to speak in complete sentences Cardio Rate: regular rate GI Inspection: Yes normal to inspection General: Yes no CVA tenderness Back/Spine/Pelvis Back: no CVA tenderness Skin General skin exam: no rashes or lesions noted Neuro General: patient oriented x3 Extrem General: Yes normal to inspection Psych Appearance: grossly normal and well kempt Mental Status: mental status grossly normal Speech and movement: Normal speech and movement present and Clear speech present Affect: normal affect Attitude: cooperative Thought process: Normal thought process present Thought content: Normal thought content present Insight: Good insight present (Psych) Judgement: Good judgement present (Psych) Office Procedures Post Void Residual Post Residual Void Post Void Residual (PVR): 8 [id number] Void Residual by ultrasound Results AMB Urinalysis, Automated UA Leukoctes 0 [place]/uL Last Edit by Marilynn Han [facility] on 04/16/25 12:08 UA Nitrite Last Edit by Marilynn Han [facility] on 04/16/25 12:08 UA Urobilinogen 0.2 mg/dL Last Edit by Marilynn Han [facility] on 04/16/25 12:08 UA Protein 100 mg/dL Last Edit by Marilynn Han [facility] on 04/16/25 12:08 UA pH 6.0 Last Edit by Marilynn Han [facility] on 04/16/25 12:08 UA Blood 0 Fam/uL Last Edit by Marilynn Han [facility] on 04/16/25 12:08 UA Specific [place] 1.020 Last Edit by Marilynn Han [facility] on 04/16/25 12:08 UA Ketone Last Edit by Marilynn Han [facility] on 04/16/25 12:08 UA Bilirubin 1 mg/dL Last Edit by Marilynn Han [facility] on 04/16/25 12:08 UA Glucose 0 mg/dL Last Edit by Marilynn Han [facility] on 04/16/25 12:08 Results Reviewed Results Reviewed: Laboratory Last Values Urine pH (Auto) 6.0 04/16/25 12:06 Specific [place] (Auto) 1.020 04/16/25 12:06 Urine Protein (Auto) 100 mg/dL 04/16/25 12:06 Glucose (UA)(Auto) 0 mg/dL 04/16/25 12:06 Urine Blood (Auto) 0 Fam/uL 04/16/25 12:06 Urine Bilirubin (Auto) 1 mg/dL 04/16/25 12:06 Urine Urobilinogen (Auto) 0.2 mg/dL 04/16/25 12:06 Leukocyte Esterase (Auto) 0 [place]/uL 04/16/25 12:06 Assessment & Plan Assessment & Plan (1) Malignant neoplasm of right kidney: Comment: Nephrectomy 2017 Code(s): C64.1 - Malignant neoplasm of right kidney, except renal pelvis Category: Medical Plan In office urinalysis results reviewed with the patient today; as noted above. PVR 8 mL. Recent Creatinine/BUN results reviewed with the patient today; as noted above. He currently denies any bothersome urinary issues or concerns. He reports be happy with current voiding parameters on low daily dose of tadalafil as well as VESIcare; will continue. Continue to follow-up with nephrology as planned. Will continue surveillance monitoring of renal cancer. Will obtain chest x-ray as well as MRI renal mass protocol. Will obtain PSA, BUN, and creatinine. Follow-up in 6 months with imaging to be completed prior; or sooner with any issues, concerns, and or questions. Orders: Orders AMB Urinalysis Automated 04/16/25 Z13.9 - Encounter for screening, unspecified AMB Post Void Residual by ultrasound 04/16/25 N40.1 - Benign prostatic hyperplasia with lower urinary tract symptoms Creatinine 6 Months C64.1 - Malignant neoplasm of right kidney, except renal pelvis MR abdomen wo/w con 6 Months C64.1 - Malignant neoplasm of right kidney, except renal pelvis XR chest 2V 6 Months C64.1 - Malignant neoplasm of right kidney, except renal pelvis Blood Urea Nitrogen 6 Months C64.1 - Malignant neoplasm of right kidney, except renal pelvis Prostate Specific Antigen 6 Months N40.1 - Benign prostatic hyperplasia with lower urinary tract symptoms Patient Instructions: The patient had an opportunity to ask questions regarding the treatment plan. All questions were answered. Physical exam, labs, and imaging were discussed and reviewed in detail. As well as risks, benefits, and discussion of treatment choices. No major barriers to understanding were identified. The patient expressed understanding and agreement with the above treatment plan. The patient was made aware they should contact our office by phone for worsening of their current condition, the appearance of new symptoms, or with any questions or concerns. Compliance is encouraged with any medications and follow up testing that is ordered. It is a privilege to be allowed the opportunity to participate in? your urological care.? Again, if you have any questions or concerns If you have any questions or concerns please do not hesitate to contact me. The office is [phone]. This note is constructed using voice recognition software. While every effort has been made to ensure accuracy mortgage loan underwriter errors may have been included. Yours sincerely, THOMAS Saucedo-IWONA Coding Level of Care Code Est Pt Level 3 (44338) Complex EM visit Add On G2211 Diagnoses Malignant neoplasm of right kidney C64.1 CPT Codes Post Residual Void - PVR CPT Code: 41901-Abvp Void Residual by ultrasound ([id number])
--- OUTSIDE RECORDS SUMMARY | 2025-04-16 13:59 | XMS_ITS | Clinical Summary ---
Author Organization [facility] Address [address] [place] [address] Care Team Providers Care Ammunition Storage Superintendent Name Role Phone Cong Cynthia CURRY Primary Care Provider [phone] Source Comments PLEASE NOTE, if this patient [...] dysfunction 08/01/2013 Vitamin D deficiency 08/01/2013 Immunizations Immunization Administration Dates Next Due INFLUENZA, SEASONAL, INJECTABLE [...] Plan of Treatment Not on file Insurance [place] MEDICAID Care Teams Ammunition Storage Superintendent Relationship Specialty Start Date End Date Cynthia Gar PA-C [address] [place] [phone] [facility] - General 09/06/13
== END 2025-04-16 12:25 | disposition home or self-care (01) ==
LOC: HO.HUSH 11:39
PROVIDERS: PCP Internal Medicine; Visit Provider Nurse Practitioner Family
DX: C64.1 Malignant neoplasm of right kidney, except renal pelvis (principal)
CPT/HCPCS: 99213; G2211

== ENCOUNTER → 2025-04-16 11:38 | Outpatient (BNVA) | payer OTHER, SELFPAY | PROVIDERS: PCP Internal Medicine; Visit Provider Nurse Practitioner Family | DX: N40.1 Benign prostatic hyperplasia with lower urinary tract symptoms (principal); C64.1 Malignant neoplasm of right kidney, except renal pelvis | CPT/HCPCS: 51798; 81003; 99212 ==

== ENCOUNTER 2025-06-13 10:35 | Outpatient (AMB) | payer OTHER, SELFPAY ==
--- NOTE | 2025-06-13 10:38 | A.OFFVIS_ITS ---
Vital Signs 06/13/25 10:39 Height 6 ft 1 in Weight 284 lb 6.341 oz BMI 37.5 BP 120/80 Blood Pressure Location Rt brachial Position Sitting Pulse 62 Pulse Source Pulse Oximeter Pulse Oximetry (%) 97 Oxygen Delivery Method Room Air Intake Visit Reasons: Obstructive sleep apnea Steel Erector Required: No Accompanied by: Self / Same As Patient Allergies bee pollen (BEE STINGS) Allergy (Unknown, Verified 06/13/25 10:45) ANAPHYLAXIS lisinopril (LISINOPRIL) Adverse Reaction (Unknown, Verified 06/13/25 10:45) COUGH SEAFOOD Allergy (Unknown, Uncoded 04/16/25 22:26) ANAPHYLAXIS shrimp Allergy (Unknown, Uncoded 04/16/25 22:26) Unknown HPI Comments Details: The patient is here for pulmonary evaluation. The patient is a 65-year-old gentleman with a known history of sleep apnea. He states that he had a sleep study about 10 years ago and after that he was started on CPAP. The CPAP therapy has been very affecting beneficial for him and he did does use it every night. Although he still snores when he uses it. He also has issues with cardiovascular risk factors. Therefore was referred to assess the machine. Currently set up CPAP 16. He does use [employer] for DME. We did request access to his machine. His AHI is down to 3.9 events an hour he does have a good amount of air leakage through his mouth. He does use a nasal cradle mask. Explained to him that he likely benefits from additional pressures and we can change his CPAP to an APAP and to allow the pressures to be increased. I also recommended a fullface mask. Will try to work adjusted his current machine if the patient continues to have issues with daytime drowsiness significant snoring and elevated AHI then we can look into it titration study. But for now I believe we are going to continue to just adjust his current machine adjust the mask and follow-up in 3 months. He also has underlying allergies and nasal congestion. He does use Zyrtec on a daily basis. He also has nasal sprays. Currently his therapy is affecting beneficial. Will continue the at this time specially with the nasal mask. If he has any issues prior to this he will call. [facility] Medical History (Updated 06/16/25 @ 21:40 by Jagdish Thorpe MD) Dyspnea MALI on CPAP Poor urinary stream Benign prostatic hyperplasia with lower urinary tract symptoms Malignant neoplasm of right kidney Renal mass Complex renal cyst Surgical History Hx of hernia repair Hx of kidney removal Social History Alcohol intake: current Alcohol intake frequency: a few times a week Patient Tobacco Use Status: Never used Tobacco Review of Systems Const Denies chills, Denies fever(s) and Reports snoring Eyes Denies as per HPI ENT Reports dry mouth Card Reports no additional complaints and Denies syncope Resp Denies cough, Reports snoring and Denies wheezing GI Denies abdominal pain and Denies heartburn Reports as per HPI and Denies change in libido Musc Reports no additional complaints Skin/Breast Denies rash Neuro Denies syncope Psych Denies change in libido Endo Denies change in libido Jeyson/Lymph Reports no additional complaints Aller/Immun Denies wheezing Physical Exam Vital Signs: Last Vital Signs Pulse 62 06/13/25 10:39 BP 120/80 06/13/25 10:39 Pulse Ox 97 06/13/25 10:39 Oxygen Delivery Method Room Air 06/13/25 10:39 BMI result Body Mass Index 37.5 Const General: healthy appearing and no acute distress HEENT Head: Yes normocephalic Neck Neck: Yes supple Chest Chest palpation & inspection: normal inspection of the chest Resp Effort & Inspection: normal respiratory effort Auscultation: clear to auscultation bilaterally Cardio Rate: regular rate Rhythm: regular rhythm GI Auscultation: normal bowel sounds Skin General skin exam: no rashes or lesions noted Extrem General: Yes no clubbing, cyanosis or edema Assessment & Plan Assessment & Plan (1) MALI on CPAP: Code(s): G47.33 - Obstructive sleep apnea (adult) (pediatric) Category: Medical (2) Dyspnea: Code(s): R06.00 - Dyspnea, unspecified Category: Medical Qualifiers: Dyspnea type: dyspnea on exertion Qualified Code(s): R06.09 - Other forms of dyspnea Plan Adjusted PAP: CPAP 16 to APAP 16-20 Trial a F40 FM to help with leakage Weight managemnet Coding Level of Care Code New Pt Level 4 (74460) Diagnoses MALI on CPAP G47.33 Dyspnea on exertion R06.09 Dyspnea type: dyspnea on exertion Time Spent (min) 36
[2025-06-13 10:39] VITALS: BP 120/80; PULSE 62; O2SAT 97; BMI 37.5
--- OUTSIDE RECORDS SUMMARY | 2025-06-13 11:14 | XMS_ITS | Clinical Summary ---
Author Organization [facility] Address [address] [place] [address] Care Team Providers Care Customer Solutions Specialist Name Role Phone Cong Cynthia CURRY Primary Care Provider [phone] Source Comments PLEASE NOTE, if this patient [...] 80 09/06/2013 3:09 PM EDT Temperature 36.8 C (98.3 F) 09/06/2013 3:09 PM EDT Respiratory Rate 18 09/06/2013 3:09 PM EDT Oxygen Saturation - - Inhaled Oxygen Concentration - - Weight 130.6 kg (288 lb) 09/06/2013 3:09 PM EDT Height 185.4 cm (6' 1 ) 09/06/2013 3:09 PM EDT Body Mass Index 38 09/06/2013 3:09 PM EDT Plan of Treatment Not on file Insurance [place] MEDICAID Care Teams Customer Solutions Specialist Relationship Specialty Start Date End Date Cynthia Gar PA-C [address] [place] [phone] [facility] - General 09/06/13
--- OUTSIDE RECORDS SUMMARY | 2025-06-13 11:14 | XMS_ITS | Clinical Summary ---
Author Organization [address] Address [address] [place] [id number] Phone Care Team Providers Care School Guidance Counselor Name Role Phone Marques Hardin MD Primary Care Provider [phone] Allergies Active Allergy Reactions Criticality Noted Date Comments Bee Venom Protein (Honey Bee) 2012 Lisinopril Cough 03/25/2014 Shellfish Derived 04/08/2016 Shrimp 08/01/2013 Medications clobetasoL (TEMOVATE) 0.05 % cream Apply to affected areas twice daily as needed sparingly. 0 Active tadalafiL (CIALIS) 5 mg tablet TAKE ONE TABLET BY MOUTH EVERY DAY NEEDED FOR SEXUAL ACTIVITY 1 Active tretinoin (RETIN-A) 0.025 % cream APPLY A PEA SIZED AMOUNT OF CREAM TOPICALLY TO FACE AND BACK AT BEDTIME. START WITH EVERY 3RD NIGHT FOR ONE WEEK, THEN EVERY OTHER NIGHT FOR ONE WEEK, THEN NIGHTLY. 3 Active medical supply, miscellaneous (MISCELLANEOUS MEDICAL SUPPLY MISC) Inhale into the lungs at bedtime. CPAP Active nystatin (Nystop) 100,000 unit/gram powder Apply topically 2 (two) times a day. 15 g 1 5 Active Additional Information Patient not taking.Reported on 02/11/2025 methylPREDNISolon e (MEDROL) 4 mg tablet Take 6 tabs PO on day 1, 5 tabs PO on day 2, 4 tabs PO on day 3, 3 tabs PO on day 2, 2 tabs PO on day 5 and 1 tab PO on day 6. 21 tablet 5 Active fluticasone propionate (FLONASE) 50 mcg/actuation nasal spray USE 2 SPRAY(S) IN EACH NOSTRIL ONCE DAILY FOR 3-4 WEEKS, THEN DECREASE TO 1 SPRAY IN EACH NOSTRIL DAILY 24 g 5 Active Allergy Relief, cetirizine, 10 mg tablet Take 1 tablet by mouth once daily 90 tablet 1 5 Active hydroCHLOROthiazi de (HYDRODIURIL) 25 mg tablet Take 1 tablet by mouth once daily 90 tablet 5 Active metoprolol succinate (TOPROL-XL) 100 mg 24 hr tablet Take 1 tablet by mouth once daily 90 tablet 5 Active hydroCHLOROthiazi de (HYDRODIURIL) 25 mg tablet Take 1 tablet (25 mg total) by mouth 1 (one) time each day. 90 tablet 2 5 Active losartan (COZAAR) 25 mg tablet Take 1 tablet (25 mg total) by mouth 1 (one) time each day. 90 tablet 2 5 025 Active metoprolol succinate (TOPROL-XL) 100 mg 24 hr tablet Take 1 tablet (100 mg total) by mouth 1 (one) time each day. Do not crush or chew. 90 tablet 2 5 Active EPINEPHrine (EpiPen 2-Boris) 0.3 mg/0.3 mL injection Inject 0.3 mL (0.3 mg total) under the skin 1 (one) time for 1 dose. 1 each 2 5 Active Active Problems Problem Noted Date Diagnosed Date AMLI (obstructive sleep apnea) 10/16/2024 Overview (10/16/2024): [facility] [...] prostatic hyperplasia) 09/02/2021 Overview (10/16/2024): Followed by [facility] (Dr. Gary Bobby) Malignant neoplasm of right kidney ([facility] V24, [facility] V28) 10/01/2020 Overview (10/16/2024): Follows with Dr.Alexander Bobby. 11/2016 CT abdomen showed complex 8.6 right sided renal cyst. S/p right sided nephrectomy. Staging was T2, no positive lymph nodes or mestatsis. Follows regulary with urology for maintenance/surveillance and monitoring. 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 Gary Bobby) Family History Medical History Relation Name Comments Other: kidney disease Brother Relation Name Status Comments Brother Father unknown, [place]? ag e 50's Mother Social History Tobacco Use Types Packs/Day Years Used Date Smoking Tobacco: Never Smokeless Tobacco: Never Alcohol Use Standard Drinks/Week Comments Yes 0 (1 standard drink = 0.6 oz pur e alcohol) Housing Instability Answer Date Recorde d Are you worried that in the next 2 months you may not have stable housing? No 01/24/2025 Food Access & Nutrition Answer Date Rec orded Do you have access to a vari ety of food including fruits and vegetables? Yes 01/24/2025 Access to Healthcare Answer Date Record ed Within the last 3 months, ho w many times did you visit the emergency department for your medical care? 0 01/24/2025 Health Literacy Answer Date Recorded How often do you need to hav e someone help you when you read instructions, pamphlets, or other written material from your doctor or pharmacy? Sometimes 01/24/2025 Caregiver: How often do you need to have someone help you when you read instructions, pamphlets, or other written material from your doctor or pharmacy? Not on file 01/24/2025 Financial Risk Answer Date Recorded How hard is it for you to pa y for the very basics like food, housing, medical care, and air conditioning / heating? Somewhat hard 01/24/2025 Transportation Answer Date Recorded Has the lack of transportati on kept you from meetings, work, or from getting things needed for daily living? No Has the lack of transportati on kept you from medical appointments or from getting medications? No 01/24/2025 Social Isolation Answer Date Recorded How often do you feel lonely or isolated from th ose around you? Never 01/24/2025 Food Risk Answer Date Recorded Within the past 12 months we worried whether our food would run out before we got money to buy more. Never true 01/24/2025 Within the past 12 months th e food we bought just didn't last and we didn't have money to get more. Never true 01/24/2025 Dependent Care Answer Date Recorded Do you need help finding or paying for care for your loved ones. For example, housekeeper child care or elderly care for an older adult? No 01/24/2025 Education Answer Date Recorded Do you think completing more education or training, like finishing a GED, going to college, or learning a trade, would be helpful for you? No 01/24/2025 Employment and Income Answer Date Recor ded During the last four weeks, have you been actively looking for work? No 01/24/2025 Living Situation Answer Date Recorded What is your living situation? 0 01/24/2025 Sex and Gender Information Value Date Recorded Sex Assigned at Not on file Legal Sex Male 11:55 AM EST Gender Identity Not on file Sexual Orientation Not on file Obstetrics History Last Filed Vital Signs Vital Sign Reading Time Taken Comments Blood Pressure 147/96 02/11/2025 9:52 AM EDT Pulse 67 02/11/2025 9:52 AM EDT Temperature 36.2 C (97.1 F) 02/11/2025 9:52 AM EDT Respiratory Rate 21 01/30/2025 9:35 AM EDT Oxygen Saturation 97% 01/30/2025 9:35 AM EDT Inhaled Oxygen Concentration - - Weight 132 kg (290 lb) 02/11/2025 9:52 AM EDT Height 185.4 cm (6' 1 ) 02/11/2025 9:52 AM EDT Body Mass Index 38.26 02/11/2025 9:52 AM EDT Plan of Treatment Upcoming Encounters Date Type Department Care Team (Late st Contact Info) Description 08/12/2025 9:45 AM EDT Office Visit Adult Medicine [facility] [address] [place] [address] Marques Hardin MD [address] [place] [phone] Health Maintenance Due Date Last Done Comments Pneumococcal Vaccine: 50+ Years (1 of 2 - PCV) 01/06/1980 Zoster Vaccines (1 of 2) 01/06/1980 COVID-19 Vaccine (2 - Pfizer risk series) 12/25/2021 12/04/2021 DTaP,Tdap,and Td Vaccines (2 - Td or Tdap) 05/24/2022 05/24/2012 Influenza Vaccine (#1) 2025 9, 10/05/2017, 10/02/2014, Additional history exists Social Influencers of Health Screening 01/24/2026 01/24/2025 Hypertension/CHF/CAD Annual BMP Blood Test 01/30/2026 01/30/2025, 10/12/2024, 07/30/2024, Additional history exists Cholesterol Screening (Lipid Panel) 02/01/2029 02/02/2024 Colorectal Cancer Screening: Colonoscopy 04/04/2034 04/04/2024 RSV Immunization Adult Patients (1 - 1-dose 75+ series) 01/06/2036 HIV Screening Completed 02/02/2024 Hepatitis C Screening Completed 02/02/2024 Depression Screening Completed 01/24/2025 HIB Vaccines Aged Out No longer eligi [...] age to complete this topic Meningococcal B Vaccine Aged Out No l onger eligible based on patient's age to complete this topic RSV Immunization Patients Under 20 months Aged Out No longer eligible based on patient's age to complete this topic Varicella Vaccines Aged Out No longer eligible based on patient's age to complete this topic Procedures Procedure Name Priority Date/Time Associated Diagnosis Comments BASIC METABOLIC PANEL Routine 01/30/2025 10:31 AM EDT Primary hypertension Stage 3a chronic kidney disease (CMS/HCC V24, CMS/HCC V28) COLONOSCOPY Routine 04/04/2024 HEPATITIS C SCREENING Routine 02/02/2024 HIV SCREENING Routine 02/02/2024 LIPID PANEL Routine 02/02/2024 from Last 3 Months or Most Recently Relevant to Health Maintenance Results * (ABNORMAL) Basic metabolic panel (01/30/2025 10:31 AM EDT) Sodium 138 133 - 145 mmol/L LAB CHEMISTRY METHOD 01/30/2025 4:00 PM [facility] Potassium 3.8 3.5 - 5.5 mmol/L LAB CHEMISTRY METHOD 01/30/2025 4:00 PM [facility] Chloride 105 96 - 110 mmol/L LAB CHEMISTRY METHOD 01/30/2025 4:00 PM [facility] CO2 29 21 - 32 mmol/L LAB CHEMISTRY METHOD 01/30/2025 4:00 PM [facility] Anion Gap 4 3 - 11 LAB CHEMISTRY METHOD 01/30/2025 4:00 PM [facility] Glucose 83 70 - 100 mg/dL LAB CHEMISTRY METHOD 01/30/2025 4:00 PM [facility] BUN 16 5 - 25 mg/dL LAB CHEMISTRY METHOD 01/30/2025 4:00 PM EDT [facility] Creatinine 1.39(H) 0.70 - 1.30 mg/dL LAB CHEMISTRY METHOD 01/30/2025 4:00 PM EDT [facility] eGFR 57(L) >=60 mL/min/1. 73m2 LAB CHEMISTRY METHOD 01/30/2025 4:00 PM EDT [facility] Comment:Calculation based on the Chronic Kidney Disease Epidemiology Collaboration (CKD-EPI) equation refit without adjustment for race. BUN/Creatinine Ratio 11.5 LAB CHEMISTRY METHOD 01/30/2025 4:00 PM T [facility] Calcium 9.6 8.5 - 10.5 mg/dL LAB CHEMISTRY METHOD 01/30/2025 4:00 PM T [facility] Blood Venous blood specimen / Unknown Venipuncture / Unknown 01/30/2025 10:31 AM EDT 01/30/2025 10:31 AM EDT Marques Hardin MD LAB BLOOD ORDERABLES Final Resu lt [facility] [address] [place] [address], * Colonoscopy (04/04/2024) [facility] Colonoscopy abstracted, no interpretation Anatomical Region Laterality Modality Other Historical Provider HEALTH MAINTENANCE Final Result * HIV Screening (02/02/2024) [facility] HIV Screening abstracted Historical Provider HEALTH MAINTENANCE Final Result * Hepatitis C Screening (02/02/2024) [facility] Hepatitis C Screening abstracted Historical Provider HEALTH MAINTENANCE Final Result * Lipid panel (02/02/2024) [facility] LDL/HDL Ratio 4 0 - 4 Triglycerides 115 0 - 150 mg/dL Cholesterol 162 0 - 200 mg/dL HDL 45 >=40 mg/dL LDL Cholesterol 94 0 - 100 mg/dL Blood Venous blood specimen / Unknown Historical Provider LAB BLOOD ORDERABLES Caren miranda Result from Last 3 Months or Most Recently Relevant to Health Maintenance Insurance [facility] [email or web address] PLAN Care Teams School Guidance Counselor Relationship Specialty Start Date End Date Marques Hardin MD [address] [place] [id number] PCP - General Internal Medicine 12/11/24
== END 2025-06-13 11:21 | disposition home or self-care (01) ==
LOC: HO.HPS 10:36
PROVIDERS: PCP Internal Medicine; Visit Provider Hospitalist
DX: G47.33 Obstructive sleep apnea (adult) (pediatric) (principal); R06.09 Other forms of dyspnea
CPT/HCPCS: 99204

== ENCOUNTER → 2025-06-13 10:35 | Outpatient (BNVA) | payer OTHER, SELFPAY | PROVIDERS: PCP Internal Medicine; Visit Provider Hospitalist | DX: G47.33 Obstructive sleep apnea (adult) (pediatric) (principal); Z99.89 Dependence on other enabling machines and devices; R06.09 Other forms of dyspnea | CPT/HCPCS: 99202 ==

== ENCOUNTER 2025-09-27 10:07 | Outpatient (AMB) | payer OTHER, SELFPAY ==
--- OUTSIDE RECORDS SUMMARY | 2025-09-23 08:30 | XMS_ITS | Encounter Summary ---
Author Organization [facility] Address [address] [place] [address] Care Team Providers Care Installation Service Representative Name Role Phone Marques Hardin MD Primary Care Provider [phone] Reason for Visit * Reason Comments Follow-up Seen at 09/19/25 for hematuria Encounter Details Date Type Department Care Team ([facility] st Contact Info) Description 09/23/2025 8:30 AM EST Office Visit Adult Medicine [address] [phone] Marques Hardin MD [address] [place] [address] Hematuria, unspecified type (Primary Dx); History of kidney cancer; Primary hypertension Social History Tobacco Use Types Packs/Day Years Used Date Smoking Tobacco: Never Smokeless Tobacco: Never Tobacco Cessation:Counseling Given: Not Answered Alcohol Use Standard Drinks/Week Comments Yes 0 [...] do you feel lonely or isolated from ose around you? Never 01/24/2025 Food Risk [...] care for your loved ones. For example, child care supervisor or elderly care for an older adult? [...] Date Recorded What is your living situation? Unrecognized valu e 01/24/2025 Sex and Gender Information Value Date Recorded Sex Assigned at Not on file Legal Sex Male 11:55 AM EST Gender Identity Not on file Sexual Orientation Not on file documented as of this encounter Last Filed Vital Signs Vital Sign Reading Time Taken Comments Blood Pressure 130/80 09/23/2025 8:36 AM EST Pulse 66 09/23/2025 8:36 AM EST Temperature 36.6 C (97.8 F) 09/23/2025 8:36 AM EST Respiratory Rate 18 09/23/2025 8:36 AM EST Oxygen Saturation 95% 09/23/2025 8:36 AM EST Inhaled Oxygen Concentration - - Weight 133 kg (294 lb) 09/23/2025 8:36 AM EST Height 185.4 cm (6' 1 ) 09/23/2025 8:36 AM EST Body Mass Index 38.79 09/23/2025 8:36 AM EST documented in this encounter Ordered Prescriptions Prescription Sig Dispense Quantity Refills Last Filled Start Date End Date fluticasone propionate (FLONASE) 50 mcg/actuation nasal spray Administer 2 sprays into each nostril 1 (one) time each day. Shake gently. Before first use, prime pump. After use, clean tip and replace cap. 24 g 09/23/2025 cetirizine (ZyrTEC) 10 mg tablet Take 1 tablet (10 mg total) by mouth 1 (one) time each day. 90 tablet 1 09/23/2025 documented in this encounter Progress Notes * Marques Hardin MD - 09/23/2025 8:30 AM EST CHIEF COMPLAINT: Follow-up (Seen at 09/19/25 for hematuria) IDENTIFIER: Ruiz Pierson is a 65 y.o. old male. HPI: Patient with hx kidney cancer s/p right sided nephrectomy, HTN,ckd stage 3, MALI,BPH,fatty liver Patient with seen at a [facility] on 09/19/2025 pt presented with blood with the urine. Pt noted the nightprior noted blood on tissue with dabbing. Pt denies jo ann bloody urine pt notes continued the follow and went to [facility]. Pt denies dysuria, did not a pressure, like the sensation that he had to urinate Pt denies fever/chills denies use of nsaids Pt notes urine testing [facility] was (-) infection Pt states urine did have microscopic blood. Pt has not had any further since leaving the [facility] Patient with htn of htn pt is on hctz 25 mg and metoprolol 100 mg daily Bp today 130/80 Pt follows with urology Bobby is to have abdominal mri next month pt states not sure what the mri is for. Pt notes does routine imagine annually due to kidney cancer history. Pt notes since leaving the [facility] has not noted and further bleeding ROS: GENERAL: Negative for malaise, significant weight loss and fever RESPIRATORY: No cough, wheezing or shortness of breath CARDIOVASCULAR: Negative for chest pain, leg swelling and palpitations : See HPI PAST MEDICAL HISTORY: Patient Active Problem List Diagnosis Date Noted MALI (obstructive sleep apnea) 10/16/2024 BPH (benign prostatic hyperplasia) 09/02/2021 Malignant neoplasm of right kidney ([facility] V24, [facility] V28) 10/01/2020 Incisional hernia of anterior abdominal wall without obstruction or gangrene 02/16/2019 CKD (chronic kidney disease) stage 3, GFR 30-59 ml/min ([facility] V24, [facility] V28) 07/12/2018 Diverticulosis of intestine without bleeding 12/22/2016 Normocytic anemia 06/04/2015 Prediabetes 09/13/2014 Fatty liver 09/12/2014 HTN (hypertension) 09/12/2014 Obesity 09/12/2014 SOCIAL HISTORY: Social History Tobacco Use Smoking status: Never Smokeless tobacco: Never Substance Use Topics Alcohol use: Yes FAMILY HISTORY: Family Status Relation Name Status Brother (Not Specified) Mother Father unknown, [place]? age 50's No partnership data on file Family History[1] ACTIVE MEDICATIONS: Medications Taking[2] ALLERGIES: Bee venom protein (honey bee), Lisinopril, Shellfish derived, and Shrimp PHYSICAL EXAM: Blood pressure 130/80, pulse 66, temperature 36.6 ??C (97.8 ??F), temperature source Temporal, resp. rate 18, height 1.854 m (73 ), weight 133 kg (294 lb), SpO2 95%. Body mass index is 38.79 kg/m??. Plan is deferred until next visit APPEARANCE: Alert and in no acute distress EYES: PERRLA, conjunctiva and sclera normal HEART: RRR with normal S1 and S2, no murmurs, no gallops, no JVD appreciated LUNG: clear to auscultation bilaterally EXTREMITIES: Extremities warm and well perfused without clubbing, cyanosis, or edema LABS: none IMPRESSION: 1. Hematuria, unspecified type 2. History of kidney cancer 3. Primary hypertension PLAN: Patient was at [facility] last week for painless hematuria pt notes blood when dabbing the penis s/p urination. Pt notes some pressure with urination. Patient with hx of kidney cancer s/p right sided nephrectomy. I do not have the results but patient reports urine work at the [facility] was (-) but states the was blood in the urine sample. Patient has not had repeat incident since leaving the [facility]. I will repeat u/a and ucx if blood has cleared pt will have surveillance mri abdomen as scheduled for next month, if persists I will make sure his urologist is aware Pt with htn at goal at <140/90 pt will continue current regimen of hctz and metoprolol Patient to f/u with me as scheduled 03/03/2025 No orders of the defined types were placed in this encounter. ADDITIONAL ORDERS: None Marques Hardin MD on 09/23/2025 at 7:30 AM EST [1] Family History Problem Relation Name Age of Onset Other (Other: kidney disease) Brother [2] No outpatient medications have been marked as taking for the 09/23/25 encounter (Appointment) with Marques Hardin MD. documented in this encounter Plan of Treatment Upcoming Encounters Date Type Department Care Team (Late st Contact Info) Description 03/03/2026 11:30 AM EDT Office Visit Adult Medicine [address] [phone] Marques Hardin MD [address] [place] [address] documented as of this encounter Results * Culture urine (09/23/2025 9:08 AM EST) Culture, Urine No growth 09/24/2025 10:12 AM EST [facility] Urine Urine specimen obtained by clean catch procedure / Unknown Non-blood Collection / Unknown 09/23/2025 9:08 AM EST 09/23/2025 9:08 AM EST us Marques Hardin MD LAB MICROBIOLOGY - GENERAL [facility] Final Result [facility] [address] [place] [address], documented in this encounter Visit Diagnoses Diagnosis Hematuria, unspecified type- Primary History of kidney cancer Personal history of malignant neoplasm of kidney Primary hypertension Unspecified essential hypertension documented in this encounter Discontinued Medications Medication Sig Discontinue Reason Start Date End Da te cetirizine (ZyrTEC) 10 mg tablet Take 1 tablet by mouth once daily Reorder 07/05/2025 09/23/2025 fluticasone propionate (FLONASE) 50 mcg/actuation nasal spray Administer 2 sprays into each nostril 1 (one) time each day. Shake gently. Before first use, prime pump. After use, clean tip and replace cap. Reorder 08/12/2025 09/23/2025 documented as of this encounter Additional Health Concerns Assessment Noted Time PHQ-9 Depression Total Score: 4 01/25/20 8:50 AM EDT documented as of this encounter Care Teams Installation Service Representative Relationship Specialty Start Date End Date Marques Hardin MD [address] [place] [phone] PCP - General Internal Medicine 12/11/24 documented as of this encounter
--- OUTSIDE RECORDS SUMMARY | 2025-09-23 09:05 | XMS_ITS | Encounter Summary ---
Author Organization [facility] Address [address] [place] [address] Care Team Providers Care Sugar Drier Name Role Phone Marques Hardin MD Primary Care Provider [phone] Encounter Details Date Type Department Care Team (Late st Contact Info) Description 09/23/2025 9:05 AM EST Lab Draw Station [address] [address] Hematuria, unspecified type Social History Tobacco Use Types Packs/Day Years [...] ed Within the last 3 months, ho nelson many times did you visit the emergency [...] for your loved ones. For example, child guidance counselor or elderly care for an older adult? [...] on file documented as of this encounter Plan of Treatment Upcoming Encounters Date Type Department Care Team (Late st Contact Info) Description 03/03/2026 11:30 AM EDT Office Visit Adult Medicine [address] [phone] Marques Hardin MD [address] [place] [address] documented as of this encounter Procedures Procedure Name Priority Date/Time Associated Diagnosis Comments URINALYSIS WITH REFLEX MICROSCOPIC Routine 09/23/2025 9:08 AM EST Hematuria, unspecified type URINALYSIS WITH REFLEX MICROSCOPIC Routine 09/23/2025 9:08 AM EST Hematuria, unspecified type CULTURE URINE Routine 09/23/2025 9:08 AM EST Hematuria, unspecified type documented in this encounter Results * (ABNORMAL) Urinalysis with reflex microscopic (09/23/2025 9:08 AM EST) Specific Trenary Urine 1.019 1.003 - 1.030 LAB URINALYSIS - AUTOMATED METHOD 09/23/2025 10:43 AM [facility] pH, Urine 6.0 5.0 - 8.0 pH LAB URINALYSIS - AUTOMATED METHOD 09/23/2025 10:43 AM [facility] Leukocytes, Urine Small(A) Negative LAB URINALYSIS - AUTOMATED METHOD 09/23/2025 10:43 AM [facility] Nitrite, Urine Negative Negative LAB URINALYSIS - AUTOMATED METHOD 09/23/2025 10:43 AM [facility] Protein, Urine Negative <=Trace mg/dL LAB URINALYSIS - AUTOMATED METHOD 09/23/2025 10:43 AM [facility] Glucose, Urine Negative Negative mg/dL LAB URINALYSIS - AUTOMATED METHOD 09/23/2025 10:43 AM [facility] Ketones, Urine Negative Negative mg/dL LAB URINALYSIS - AUTOMATED METHOD 09/23/2025 10:43 AM [facility] Urobilinogen, Urine 1.0 0.2 - 1.0 mg/dL LAB URINALYSIS - AUTOMATED METHOD 09/23/2025 10:43 AM [facility] Bilirubin, Urine Negative Negative LAB URINALYSIS - AUTOMATED METHOD 09/23/2025 10:43 AM [facility] Blood, Urine Negative Negative LAB URINALYSIS - AUTOMATED METHOD 09/23/2025 10:43 AM [facility] RBC, Urine 2 0 - 4 /HPF 09/23/2025 10:43 AM [facility] WBC, Urine 30(H) 0 - 4 /HPF 09/23/2025 10:43 AM EST [facility] Squamous Epithelial, Urine 5 0 - 60 /LPF 09/23/2025 10:43 AM EST [facility] Bacteria, Urine Few(A) Negative /HPF 09/23/2025 10:43 AM [facility] Urine Urine specimen obtained by clean catch procedure / Unknown Non-blood Collection / Unknown 09/23/2025 9:08 AM EST 09/23/2025 9:08 AM EST us Marques Hardin MD LAB URINE ORDERABLES Final Resu lt Performing Organization Address City/[facility]/ZIP Co de Phone Number [facility] [address] [place] [address], [place] [phone] * Culture urine (09/23/2025 9:08 AM EST) Culture, Urine No growth 09/24/2025 10:12 AM EST [facility] Urine Urine specimen obtained by clean catch procedure / Unknown Non-blood Collection / Unknown 09/23/2025 9:08 AM EST 09/23/2025 9:08 AM EST us Marques Hardin MD LAB MICROBIOLOGY - GENERAL MARION PATEL Final Result Performing Organization Address City/[facility]/ZIP Co de Phone Number [facility] [address] [place] [address], [place] [phone] documented in this encounter Visit Diagnoses Diagnosis Hematuria, unspecified type documented in this encounter Additional Health Concerns Assessment Noted Time PHQ-9 Depression Total Score: 4 01/25/20 25 8:50 AM EDT documented as of this encounter Care Teams Sugar Drier Relationship Specialty Start Date End Date Marques Hardin MD [address] [place] [address] PCP - General Internal Medicine 12/11/24 documented as of this encounter
--- NOTE | 2025-09-27 10:19 | A.OFFVIS_ITS ---
Vital Signs 09/27/25 10:20 Height 6 ft 1 in Weight 296 lb 8.348 oz BMI 39.1 BP 136/78 Blood Pressure Location Lt brachial Position Sitting Pulse 67 Pulse Source Pulse Oximeter Pulse Oximetry (%) 96 Oxygen Delivery Method Room Air Intake Visit Reasons: Obstructive sleep apnea Security Advisor Required: No Accompanied by: Self / Same As Patient Allergies bee pollen (BEE STINGS) Allergy (Unknown, Verified 09/27/25 10:22) ANAPHYLAXIS lisinopril (LISINOPRIL) Adverse Reaction (Unknown, Verified 09/27/25 10:22) COUGH SEAFOOD Allergy (Unknown, Uncoded 04/16/25 22:26) ANAPHYLAXIS shrimp Allergy (Unknown, Uncoded 04/16/25 22:26) Unknown HPI Comments Details: The patient is a 65-year-old gentleman with a known history of sleep apnea. He states that he had a sleep study about 10 years ago and after that he was started on CPAP. The CPAP therapy has been very affecting beneficial for him and he did does use it every night. Although he still snores when he uses it. He also has issues with cardiovascular risk factors. Therefore was referred to assess the machine. Currently set up CPAP 16. He does use [employer] for DME. We did request access to his machine. His AHI is down to 3.9 events an hour he does have a good amount of air leakage through his mouth. He does use a nasal cradle mask. Explained to him that he likely benefits from additional pressures and we can change his CPAP to an APAP and to allow the pressures to be increased. I also recommended a fullface mask. Will try to work adjusted his current machine if the patient continues to have issues with daytime drowsiness significant snoring and elevated AHI then we can look into it titration study. But for now I believe we are going to continue to just adjust his current machine adjust the mask and follow-up in 3 months. He also has underlying allergies and nasal congestion. He does use Zyrtec on a daily basis. He also has nasal sprays. Currently his therapy is affecting beneficial. Will continue the at this time specially with the nasal mask. If he has any issues prior to this he will call. 09/27/2025 The patient is here for a pulmonary follow up visit. Overall doing well. He did not like the FM and went back to the nasal craddle mask. His PAP was switched to APAP and seems to be doing well, AHI is below 1. The therapy has been effective and beneficial and he does use it more than 4 hours at night. He does have nasal congestion, mild. Has antihistamine therapy. Can cosider nasal spray therapy or nasal rinsing if worsen. [facility] Medical History (Updated 09/29/25 @ 21:34 by Jagdish Thorpe MD) Chronic rhinitis Dyspnea MALI on CPAP Poor urinary stream Benign prostatic hyperplasia with lower urinary tract symptoms Malignant neoplasm of right kidney Renal mass Complex renal cyst Surgical History Hx of hernia repair Hx of kidney removal Social History Alcohol intake: current Alcohol intake frequency: a few times a week Patient Tobacco Use Status: Never used Tobacco Review of Systems Const Denies chills, Denies fever(s) and Reports snoring Eyes Denies as per HPI ENT Reports dry mouth and Reports nasal congestion Card Reports no additional complaints and Denies syncope Resp Denies cough, Reports snoring and Denies wheezing GI Denies abdominal pain and Denies heartburn Reports as per HPI and Denies change in libido Musc Reports no additional complaints Skin/Breast Denies rash Neuro Denies syncope Psych Denies change in libido Endo Denies change in libido Jeyson/Lymph Reports no additional complaints Aller/Immun Denies wheezing Physical Exam Vital Signs: Last Vital Signs Pulse 67 09/27/25 10:20 BP 136/78 09/27/25 10:20 Pulse Ox 96 09/27/25 10:20 Oxygen Delivery Method Room Air 09/27/25 10:20 BMI result Body Mass Index 39.1 Const General: healthy appearing and no acute distress HEENT Head: Yes normocephalic Neck Neck: Yes supple Chest Chest palpation & inspection: normal inspection of the chest Resp Effort & Inspection: normal respiratory effort Auscultation: clear to auscultation bilaterally Cardio Rate: regular rate Rhythm: regular rhythm GI Auscultation: normal bowel sounds Skin General skin exam: no rashes or lesions noted Extrem General: Yes no clubbing, cyanosis or edema Assessment & Plan Assessment & Plan (1) MALI on CPAP: Code(s): G47.33 - Obstructive sleep apnea (adult) (pediatric) Category: Medical (2) Dyspnea: Code(s): R06.00 - Dyspnea, unspecified Category: Medical Qualifiers: Dyspnea type: dyspnea on exertion Qualified Code(s): R06.09 - Other forms of dyspnea (3) Chronic rhinitis: Code(s): J31.0 - Chronic rhinitis Category: Medical Plan continue APAP 16-20, nasal craddle amsk Weight managemnet anti histamine as needed consider nasal rinsing F/U 1 yr Coding Level of Care Code Est Pt Level 4 (99480) Diagnoses MALI on CPAP G47.33 Dyspnea on exertion R06.09 Dyspnea type: dyspnea on exertion Chronic rhinitis J31.0 Time Spent (min) 16
[2025-09-27 10:20] VITALS: BP 136/78; PULSE 67; O2SAT 96; BMI 39.1
--- OUTSIDE RECORDS SUMMARY | 2025-09-27 10:44 | XMS_ITS | Encounter Summary ---
Author Organization [facility] Address [address] [place] [address] Care Team Providers Care Transport Conductor Name Role Phone Marques Hardin MD Primary Care Provider [phone] Encounter Details Date Type Department Care Team (Late st Contact Info) Description 08/12/2025 Results Follow-Up Adult Medicine [address] [phone] Marques Hardin MD [address] [place] [address] Social History Tobacco Use Types Packs/Day Years [...] your loved ones. For example, child care assistant or elderly care for an older adult? [...] 11:30 AM EDT Office Visit Adult Medicine [address] [phone] Marques Hardin MD [address] [place] [address] documented as of this encounter Visit Diagnoses Not on filedocumented in this encounter Additional Health Concerns Assessment Noted Time PHQ-9 Depression Total Score: 4 01/25/20 8:50 AM EDT documented as of this encounter Care Teams Transport Conductor Relationship Specialty Start Date End Date Marques Hardin MD [address] [place] [phone] PCP - General Internal Medicine 12/11/24 documented as of this encounter
--- OUTSIDE RECORDS SUMMARY | 2025-09-27 10:44 | XMS_ITS | Encounter Summary ---
Author Organization [facility] Address [address] [place] [address] Care Team Providers Care Yardmaster Name Role Phone Marques Hardin MD Primary Care Provider [phone] Encounter Details Date Type Department Care Team (Late st Contact Info) Description 09/23/2025 Results Follow-Up Adult Medicine [address] [phone] Marques Hardin MD [address] [place] [address] Social History Tobacco Use Types Packs/Day Years [...] care for your loved ones. For example, manager child or elderly care for an older adult? [...] 11:30 AM EDT Office Visit Adult Medicine [address] [phone] Marques Hardin MD [address] [place] [address] documented as of this encounter Visit Diagnoses Not on filedocumented in this encounter Additional Health Concerns Assessment Noted Time PHQ-9 Depression Total Score: 4 01/25/20 8:50 AM EDT documented as of this encounter Care Teams Yardmaster Relationship Specialty Start Date End Date Marques Hardin MD [address] [place] [phone] PCP - General Internal Medicine 12/11/24 documented as of this encounter
--- OUTSIDE RECORDS SUMMARY | 2025-09-27 10:44 | XMS_ITS | Clinical Summary ---
Author Organization [address] Address [address] [place] [phone] Phone Care Team Providers Care Certified Histologic Technician Name Role Phone Marques Hardin MD Primary Care Provider [phone] Allergies Active Allergy Reactions Criticality Noted Date Comments Bee Venom Protein (Honey Bee) 2012 Lisinopril Cough 03/25/2014 Shellfish Derived 04/08/2016 Shrimp 08/01/2013 Medications clobetasoL (TEMOVATE) 0.05 % cream Apply to affected areas twice daily as needed sparingly. 11/16/19 20 Active tadalafiL (CIALIS) 5 mg tablet TAKE [...] into the lungs at bedtime. CPAP Active methylPREDNISolon e (MEDROL) 4 mg tablet Take 6 tabs PO on day 1, 5 tabs PO on day 2, 4 tabs PO on day 3, 3 tabs PO on day 2, 2 tabs PO on day 5 and 1 tab PO on day 6. 21 tablet 12/11/19 25 Active Additional Information Patient not taking.Reason: Other (completed), Reported on 09/23/2025 hydroCHLOROthiazi de (HYDRODIURIL) 25 mg tablet Take 1 tablet by mouth once daily 90 tablet 02/01/20 25 Active Additional Information Patient not taking.Reason: Other (duplicate), Reported on 09/23/2025 metoprolol succinate (TOPROL-XL) 100 mg 24 hr tablet Take 1 tablet by mouth once daily 90 tablet 02/01/20 25 Active Additional Information Patient not taking.Reason: Other (duplicate), Reported on 09/23/2025 hydroCHLOROthiazi de (HYDRODIURIL) 25 mg tablet Take 1 tablet (25 mg total) by mouth 1 (one) time each day. 90 tablet 2 01/31/20 25 Active losartan (COZAAR) 25 mg tablet Take 1 tablet (25 mg total) by mouth 1 (one) time each day. 90 tablet 2 01/31/20 25 Active Additional Information Patient not taking.Reason: Other (dr alexey cortés), Reported on 08/12/2025 metoprolol succinate (TOPROL-XL) 100 mg 24 hr tablet Take 1 tablet (100 mg total) by mouth 1 (one) time each day. Do not crush or chew. 90 tablet 2 01/31/20 25 Active EPINEPHrine (EpiPen 2-Boris) 0.3 mg/0.3 mL injection Inject 0.3 mL (0.3 mg total) under the skin 1 (one) time for 1 dose. 1 each 2 01/31/20 25 Active nystatin (Nystop) 100,000 unit/gram powder Apply topically 2 (two) times a day. 15 g 1 08/12/20 25 Active cetirizine (ZyrTEC) 10 mg tablet Take 1 tablet (10 mg total) by mouth 1 (one) time each day. 90 tablet 1 09/23/20 25 Active fluticasone propionate (FLONASE) 50 mcg/actuation nasal spray Administer 2 sprays into each nostril 1 (one) time each day. Shake gently. Before first use, prime pump. After use, clean tip and replace cap. 24 g 09/23/20 25 Active cetirizine (ZyrTEC) 10 mg tablet Take 1 tablet by mouth once daily 90 tablet 1 07/05/20 25 025 Discontin ued(Reord er) fluticasone propionate (FLONASE) 50 mcg/actuation nasal spray Administer 2 sprays into each nostril 1 (one) time each day. Shake gently. Before first use, prime pump. After use, clean tip and replace cap. 24 g 08/12/20 25 025 Discontin ued(Reord er) Active Problems Problem Noted Date Diagnosed Date [...] prostatic hyperplasia) 09/02/2021 Overview (10/16/2024): Followed by [facility] (Dr. Gary Bobby) Malignant neoplasm of right kidney ([facility] V24, [facility] V28) 10/01/2020 Overview (10/16/2024): Follows with Dr.Alexander Bobby. 11/2016 CT abdomen showed complex 8.6 right sided renal cyst. S/p right sided nephrectomy. Staging was T2, no positive lymph nodes or mestatsis. Follows regulary with urology for maintenance/surveillance and monitoring. Incisional hernia of anterio r abdominal wall without obstruction or gangrene 02/16/2019 CKD (chronic kidney disease) stage 3, GFR 30-59 ml/min (CMS/HCC V24, [facility]/HCC V28) 07/12/2018 Diverticulosis of intestine without bleeding Normocytic anemia 06/04/2015 Overview (10/16/2024): Saw Heme, felt to be normal variant Prediabetes 09/13/2014 Fatty liver 09/12/2014 HTN (hypertension) 09/12/2014 Obesity 09/12/2014 Encounters Date Type Department Care Team Description 09/23/2025 9:05 AM EST Lab Draw [address] Hematuria, unspecified type 09/23/2025 8:30 AM EST Office Visit [address] [phone] Marques Hardin MD Hematuria, unspecified type (Primary Dx); History of kidney cancer; Primary hypertension 09/23/2025 Results Follow-Up [address] [phone] Marques Hardin MD 08/12/2025 9:45 AM EDT Office Visit [address] [phone] Marques Hardin MD Primary hypertension (Primary Dx); Stage 3a chronic kidney disease (CMS/HCC V24, CMS/HCC V28); Prediabetes; Onychomycosis; Numerous moles; MALI (obstructive sleep apnea); Primary insomnia 08/12/2025 Results Follow-Up [address] [phone] Marques Hardin MD from Last 3 Months Immunizations Immunization Administration Dates Next Due Influenza Quadravalent, MDCK , 0.5ml, with preservative (Flucelvax) 6mo and older 10/05/2017 Influenza trivalent, 0.5mL, preservative free (Fluarix; FluLaval; Fluzone) ages 6mo and older (Afluria) 3 years and older 07/24/2019,10/02/2014 Influenza trivalent, MDCK, 0 .5mL, preservative free (Flucelvax) 6mo and older 08/12/2025 [employer] SARS-CoV-2 COVID-19, mRNA, LNP-S, preservative free 12/04/2021 [...] r urinary tract symptoms; COMMENT: Followed by [facility]rology Services (Dr. Gary Bobby) Family History Medical History Relation Name Comments Other: kidney disease Brother Relation Name Status Comments Brother Father unknown, [place]? ag e 50's Mother Social History Tobacco [...] your loved ones. For example, child care teacher or elderly care for an older adult? [...] Mass Index 38.79 09/23/2025 8:36 AM EST Plan of Treatment Upcoming Encounters Date Type Department Care Team (Late st Contact Info) Description 03/03/2026 11:30 AM EDT Office Visit Adult Medicine [facility] [address] [place] [phone] Marques Hardin MD [address] [place] [phone] Health Maintenance Due Date Last Done Comments Zoster Vaccines (1 of 2) 01/06/1980 Pneumococcal Vaccine: 50+ Years (1 of 1 - PCV) 2011 DTaP,Tdap,and Td Vaccines (2 - Td or Tdap) 05/24/2022 05/24/2012 COVID-19 Vaccine ( - season) 2025 12/04/2021, 02/06/2021, 01/16/2021 Social Influencers of Health Screening 01/24/2026 01/24/2025 Hypertension/CHF/CAD Annual BMP Blood Test 08/12/2026 08/12/2025, 01/30/2025, 10/12/2024, Additional history exists Cholesterol Screening (Lipid Panel) 02/01/2029 02/02/2024 Colorectal Cancer Screening: Colonoscopy 04/04/2034 04/04/2024 RSV Immunization Adult Patients (1 - 1-dose 75+ series) 01/06/2036 HIV Screening Completed 02/02/2024 Hepatitis C Screening Completed 02/02/2024 Depression Screening Completed 01/24/2025 Influenza Vaccine Completed 08/12/2025, , 10/05/2017, Additional history exists HIB Vaccines Aged Out No longer eligi [...] 09/23/2025 9:08 AM EST Hematuria, unspecified type BASIC METABOLIC PANEL Routine 08/12/2025 10:19 AM EDT Primary hypertension Stage 3a chronic kidney disease ([facility]/HCC V24, CMS/HCC V28) HEMOGLOBIN A1C Routine 08/12/2025 10:19 AM EDT Prediabetes COLONOSCOPY Routine 04/04/2024 HEPATITIS C SCREENING Routine 02/02/2024 HIV SCREENING Routine 02/02/2024 LIPID PANEL Routine 02/02/2024 from Last 3 Months or Most Recently Relevant to Health Maintenance Results * (ABNORMAL) Urinalysis with reflex microscopic (09/23/2025 9:08 AM EST) Specific [place] Urine 1.019 1.003 - 1.030 LAB URINALYSIS - AUTOMATED METHOD 09/23/2025 10:43 AM [facility] pH, Urine 6.0 5.0 - 8.0 pH LAB URINALYSIS - AUTOMATED METHOD 09/23/2025 10:43 AM [facility] Leukocytes, Urine Small(A) Negative LAB URINALYSIS - AUTOMATED METHOD 09/23/2025 10:43 AM [facility] Nitrite, Urine Negative Negative LAB URINALYSIS - AUTOMATED METHOD 09/23/2025 10:43 AM [facility] Protein, Urine Negative <=Trace mg/dL LAB URINALYSIS - AUTOMATED METHOD 09/23/2025 10:43 AM [facility] Glucose, Urine Negative Negative mg/dL LAB URINALYSIS - AUTOMATED METHOD 09/23/2025 10:43 AM [facility] Ketones, Urine Negative Negative mg/dL LAB URINALYSIS - AUTOMATED METHOD 09/23/2025 10:43 AM [facility] Urobilinogen, Urine 1.0 0.2 - 1.0 mg/dL LAB URINALYSIS - AUTOMATED METHOD 09/23/2025 10:43 AM [facility] Bilirubin, Urine Negative Negative LAB URINALYSIS - AUTOMATED METHOD 09/23/2025 10:43 AM [facility] Blood, Urine Negative Negative LAB URINALYSIS - AUTOMATED METHOD 09/23/2025 10:43 AM [facility] RBC, Urine 2 0 - 4 /HPF 09/23/2025 10:43 AM [facility] WBC, Urine 30(H) 0 - 4 /HPF 09/23/2025 10:43 AM [facility] Squamous Epithelial, Urine 5 0 - 60 /LPF 09/23/2025 10:43 AM [facility] Bacteria, Urine Few(A) Negative /HPF 09/23/2025 10:43 AM [facility] Urine Urine specimen obtained by clean catch procedure / Unknown Non-blood Collection / Unknown 09/23/2025 9:08 AM EST 09/23/2025 9:08 AM EST us Marques Hardin MD LAB URINE ORDERABLES Final Resu lt Performing Organization Address [facility]/ZIP Co de Phone Number [facility] [address] [place] [address], [place] [phone] * Culture urine (09/23/2025 9:08 AM EST) Pathologist [facility] Culture, Urine No growth 09/24/2025 10:12 AM EST [facility] Urine Urine specimen obtained by clean catch procedure / Unknown Non-blood Collection / Unknown 09/23/2025 9:08 AM EST 09/23/2025 9:08 AM EST us Marques Hardin MD LAB MICROBIOLOGY - GENERAL ORDE RABLES Final Result Performing Organization Address [facility] Co de Phone Number [facility] [address] [place] [address], [place] [phone] * Hemoglobin A1c (08/12/2025 10:19 AM EDT) [facility] Hemoglobin A1C 6.2 <6.5 % LAB CHEMISTRY METHOD 08/12/2025 1:35 PM EDT [facility] Mean Bld Glu Estim. 131 mg/dL LAB CHEMISTRY METHOD 08/12/2025 1:35 PM EDT [facility] Blood Venous blood specimen / Unknown Venipuncture / Unknown 08/12/2025 10:19 AM EDT 08/12/2025 10:19 AM EDT us Marques Hardin MD LAB BLOOD ORDERABLES Final Resu lt Performing Organization Address [facility]/ZIP Co de Phone Number [facility] [address] [place] [address], [place] [phone] * (ABNORMAL) Basic metabolic panel (08/12/2025 10:19 AM EDT) Sodium 139 133 - 145 mmol/L LAB CHEMISTRY METHOD 08/12/2025 12:48 PM [facility] Potassium 3.8 3.5 - 5.5 mmol/L LAB CHEMISTRY METHOD 08/12/2025 12:48 PM [facility] Chloride 106 96 - 110 mmol/L LAB CHEMISTRY METHOD 08/12/2025 12:48 PM [facility] CO2 24 21 - 32 mmol/L LAB CHEMISTRY METHOD 08/12/2025 12:48 PM [facility] Anion Gap 9 3 - 11 LAB CHEMISTRY METHOD 08/12/2025 12:48 PM [facility] Glucose 105(H) 70 - 100 mg/dL LAB CHEMISTRY METHOD 08/12/2025 12:48 PM [facility] BUN 18 5 - 25 mg/dL LAB CHEMISTRY METHOD 08/12/2025 12:48 PM [facility] Creatinine 1.49(H) 0.70 - 1.30 mg/dL LAB CHEMISTRY METHOD 08/12/2025 12:48 PM [facility] eGFR 52(L) >=60 mL/min/1. 73m2 LAB CHEMISTRY METHOD 08/12/2025 12:48 PM [facility] Comment:Calculation based on the Chronic Kidney Disease Epidemiology Collaboration (CKD-EPI) equation refit without adjustment for race. BUN/Creatinine Ratio 12.1 LAB CHEMISTRY METHOD 08/12/2025 12:48 PM [facility] Calcium 9.5 8.5 - 10.5 mg/dL LAB CHEMISTRY METHOD 08/12/2025 12:48 PM [facility] Blood Venous blood specimen / Unknown Venipuncture / Unknown 08/12/2025 10:19 AM EDT 08/12/2025 10:19 AM EDT Marques Hardin MD LAB BLOOD ORDERABLES Final Resu lt ETHEL [facility] [address] [place] [address], [place] [phone] * Colonoscopy (04/04/2024) Colonoscopy abstracted, no interpretation Anatomical Region Laterality Modality Other Historical Provider HEALTH MAINTENANCE Final Result * HIV Screening (02/02/2024) Pathologist [facility] HIV Screening abstracted Historical Provider HEALTH MAINTENANCE Final Result * Hepatitis C Screening (02/02/2024) Pathologist [facility] Hepatitis C Screening abstracted Historical Provider HEALTH MAINTENANCE Final Result * Lipid panel (02/02/2024) Pathologist [facility] LDL/HDL Ratio 4 0 - 4 Triglycerides 115 0 - 150 mg/dL Cholesterol 162 0 - 200 mg/dL HDL 45 >=40 mg/dL LDL Cholesterol 94 0 - 100 mg/dL Blood Venous blood specimen / Unknown Historical Provider LAB BLOOD ORDERABLES Caren l Result from Last 3 Months or Most Recently Relevant to Health Maintenance Insurance [facility] Care Teams Certified Histologic Technician Relationship Specialty Start Date End Date Marques Hardin MD [address] [place] [phone] PCP - General Internal Medicine 12/11/24
== END 2025-09-27 10:37 | disposition home or self-care (01) ==
LOC: HO.HPS 10:08
PROVIDERS: PCP Internal Medicine; Visit Provider Hospitalist
DX: G47.33 Obstructive sleep apnea (adult) (pediatric) (principal); R06.09 Other forms of dyspnea; J31.0 Chronic rhinitis
CPT/HCPCS: 99214

== ENCOUNTER → 2025-09-27 10:07 | Outpatient (BNVA) | payer OTHER, SELFPAY | PROVIDERS: PCP Internal Medicine; Visit Provider Hospitalist | DX: G47.33 Obstructive sleep apnea (adult) (pediatric) (principal); R06.09 Other forms of dyspnea; J31.0 Chronic rhinitis; Z99.89 Dependence on other enabling machines and devices | CPT/HCPCS: 99212 ==

== ENCOUNTER 2025-10-04 10:28 | Outpatient (REF) | payer OTHER, SELFPAY ==
--- NOTE | ~2025-10-04 | US_ITS ---
CLINICAL HISTORY: N20.0 - Calculus of kidney US kidneys Comparison: US/SR - US KIDNEY BILATERAL - 10/08/2024 10:14 AM EST Findings: Right kidney is surgically absent. Left kidney normal size and echotexture, 14.6 cm length. No hydronephrosis. Normal color flow. Multiple cysts are re-identified, including lateral grossly similar-appearing interpolar cyst measuring 2 x 1 x 2.1 x 2.1 cm, additional interpolar cyst measuring 2.6 x 2.4 x 2.3 cm which appears grossly simple, exophytic upper pole cyst measuring 2.9 x 2.6 x 2.4 cm which appears grossly simple (previously 2.8 cm). Impression: 1. Similar-appearing left renal cysts as described above. 2. Prior right nephrectomy. This document has been electronically signed by: Bal Colorado MD on 10/04/2025 15:33:28
--- OUTSIDE RECORDS SUMMARY | 2025-10-04 10:30 | XMS_ITS | Encounter Summary ---
Author Organization [facility] Address [address] [place] [address] Care Team Providers Care Director Regulatory Affairs Name Role Phone Marques Hardin MD Primary Care Provider [phone] Encounter Details Date Type Department Care Team (Late st Contact Info) Description 08/12/2025 Results Follow-Up Adult Medicine [address] [phone] Marques Hardin MD [address] [place] [address] Social History Tobacco Use Types Packs/Day Years [...] your loved ones. For example, child care associate teacher or elderly care for an older [...] 11:30 AM EDT Office Visit Adult Medicine [address] [phone] Marques Hardin MD [address] [place] [address] documented as of this encounter Visit Diagnoses Not on filedocumented in this encounter Additional Health Concerns Assessment Noted Time PHQ-9 Depression Total Score: 4 01/25/20 8:50 AM EDT documented as of this encounter Care Teams Director Regulatory Affairs Relationship Specialty Start Date End Date Marques Hardin MD [address] [place] [phone] PCP - General Internal Medicine 12/11/24 documented as of this encounter
--- OUTSIDE RECORDS SUMMARY | 2025-10-04 10:30 | XMS_ITS | Clinical Summary ---
Author Organization [address] Address [address] [place] [phone] Phone Care Team Providers Care Movie Actor Name Role Phone Marques Hardin MD Primary Care Provider [phone] Allergies Active Allergy Reactions Criticality Noted Date [...] prostatic hyperplasia) 09/02/2021 Overview (10/16/2024): Followed by [facility] Services (Dr. Gary Bobby) Malignant neoplasm of right kidney ([facility] V24, [facility] V28) 10/01/2020 Overview (10/16/2024): Follows with Dr.Alexander Bobby. 11/2016 CT abdomen showed complex 8.6 right sided renal cyst. S/p right sided nephrectomy. Staging was T2, no positive lymph nodes or mestatsis. Follows regulary with urology for maintenance/surveillance and monitoring. Incisional hernia of anterio r abdominal wall without obstruction or gangrene 02/16/2019 CKD (chronic kidney disease) stage 3, GFR 30-59 ml/min (CMS/HCC V24, [facility]/HCC V28) 07/12/2018 Diverticulosis of intestine without bleeding Normocytic anemia 06/04/2015 Overview (10/16/2024): Saw Heme, felt to be normal variant Prediabetes 09/13/2014 Fatty liver 09/12/2014 HTN (hypertension) 09/12/2014 Obesity 09/12/2014 Encounters Date Type Department Care Team Description 09/23/2025 9:05 AM EST Lab Draw [address] Hematuria, unspecified type 09/23/2025 8:30 AM EST Office Visit [address] [phone] Marques Hardin MD Hematuria, unspecified type (Primary Dx); History of kidney cancer; Primary hypertension 09/23/2025 Results Follow-Up [address] [phone] Marques Hardin MD 08/12/2025 9:45 AM EDT Office Visit [address] [phone] Marques Hardin MD Primary hypertension (Primary Dx); Stage 3a chronic kidney disease (CMS/HCC V24, CMS/HCC V28); Prediabetes; Onychomycosis; Numerous moles; MALI (obstructive sleep apnea); Primary insomnia 08/12/2025 Results Follow-Up [address] [phone] Marques Hardin MD from Last 3 Months Immunizations Immunization Administration Dates Next Due Influenza Quadravalent, MDCK , 0.5ml, with preservative (Flucelvax) 6mo and older 10/05/2017 Influenza trivalent, 0.5mL, preservative free (Fluarix; FluLaval; Fluzone) ages 6mo and older (Afluria) 3 years and older 07/24/2019,10/02/2014 Influenza trivalent, MDCK, 0 .5mL, preservative free (Flucelvax) 6mo and older 08/12/2025 [email or web address] SARS-CoV-2 COVID-19, mRNA, LNP-S, preservative free 12/04/2021 [...] r urinary tract symptoms; COMMENT: Followed by [facility]rology Services (Dr. Gary Bobby) Family History [...] care for your loved ones. For example, early childhood associate or elderly care for an older adult? [...] 11:30 AM EDT Office Visit Adult Medicine [facility] [address] [place] [phone] Marques Hardin MD [address] [place] [phone] Health Maintenance Due Date Last Done Comments [...] Primary hypertension Stage 3a chronic kidney disease ([facility]/HCC V24, CMS/HCC V28) HEMOGLOBIN A1C Routine 08/12/2025 10:19 AM EDT Prediabetes COLONOSCOPY Routine 04/04/2024 HEPATITIS C SCREENING Routine 02/02/2024 HIV SCREENING Routine 02/02/2024 LIPID PANEL Routine 02/02/2024 from Last 3 Months or Most Recently Relevant to Health Maintenance Results * (ABNORMAL) Urinalysis with reflex microscopic (09/23/2025 9:08 AM EST) Specific [place] Urine 1.019 1.003 - 1.030 LAB URINALYSIS - AUTOMATED METHOD 09/23/2025 10:43 AM [facility] pH, Urine 6.0 5.0 - 8.0 pH LAB URINALYSIS - AUTOMATED METHOD 09/23/2025 10:43 AM [facility] Leukocytes, Urine Small(A) Negative LAB URINALYSIS - AUTOMATED METHOD 09/23/2025 10:43 AM [facility] Nitrite, Urine Negative Negative LAB URINALYSIS - AUTOMATED METHOD 09/23/2025 10:43 AM [facility] Protein, Urine Negative <=Trace mg/dL LAB URINALYSIS - AUTOMATED METHOD 09/23/2025 10:43 AM [facility] Glucose, Urine Negative Negative mg/dL LAB URINALYSIS - AUTOMATED METHOD 09/23/2025 10:43 AM [facility] Ketones, Urine Negative Negative mg/dL LAB URINALYSIS - AUTOMATED METHOD 09/23/2025 10:43 AM [facility] Urobilinogen, Urine 1.0 0.2 - 1.0 mg/dL LAB URINALYSIS - AUTOMATED METHOD 09/23/2025 10:43 AM [facility] Bilirubin, Urine Negative Negative LAB URINALYSIS - AUTOMATED METHOD 09/23/2025 10:43 AM [facility] Blood, Urine Negative Negative LAB URINALYSIS - AUTOMATED METHOD 09/23/2025 10:43 AM [facility] RBC, Urine 2 0 - 4 /HPF 09/23/2025 10:43 AM [facility] WBC, Urine 30(H) 0 - 4 /HPF 09/23/2025 10:43 AM [facility] Squamous Epithelial, Urine 5 0 - 60 /LPF 09/23/2025 10:43 AM [facility] Bacteria, Urine Few(A) Negative /HPF 09/23/2025 10:43 AM [facility] Urine Urine specimen obtained by clean catch procedure / Unknown Non-blood Collection / Unknown 09/23/2025 9:08 AM EST 09/23/2025 9:08 AM EST us Marques Hardin MD LAB URINE ORDERABLES Final Resu lt Performing Organization Address [facility]/ZIP Co de Phone Number [facility] [address] [place] [address], [place] [phone] * Culture urine (09/23/2025 9:08 AM EST) Pathologist [facility] Culture, Urine No growth 09/24/2025 10:12 AM EST [facility] Urine Urine specimen obtained by clean catch procedure / Unknown Non-blood Collection / Unknown 09/23/2025 9:08 AM EST 09/23/2025 9:08 AM EST us Marques Hardin MD LAB MICROBIOLOGY - GENERAL ORDE RABLES Final Result Performing Organization Address [facility] Co de Phone Number [facility] [address] [place] [address], [place] [phone] * Hemoglobin A1c (08/12/2025 10:19 AM EDT) [facility] Hemoglobin A1C 6.2 <6.5 % LAB CHEMISTRY METHOD 08/12/2025 1:35 PM EDT [facility] Mean Bld Glu Estim. 131 mg/dL LAB CHEMISTRY METHOD 08/12/2025 1:35 PM EDT [facility] Blood Venous blood specimen / Unknown Venipuncture / Unknown 08/12/2025 10:19 AM EDT 08/12/2025 10:19 AM EDT us Marques Hardin MD LAB BLOOD ORDERABLES Final Resu lt Performing Organization Address [facility]/ZIP Co de Phone Number [facility] [address] [place] [address], [place] [phone] * (ABNORMAL) Basic metabolic panel (08/12/2025 10:19 AM EDT) Sodium 139 133 - 145 mmol/L LAB CHEMISTRY METHOD 08/12/2025 12:48 PM [facility] Potassium 3.8 3.5 - 5.5 mmol/L LAB CHEMISTRY METHOD 08/12/2025 12:48 PM [facility] Chloride 106 96 - 110 mmol/L LAB CHEMISTRY METHOD 08/12/2025 12:48 PM [facility] CO2 24 21 - 32 mmol/L LAB CHEMISTRY METHOD 08/12/2025 12:48 PM [facility] Anion Gap 9 3 - 11 LAB CHEMISTRY METHOD 08/12/2025 12:48 PM [facility] Glucose 105(H) 70 - 100 mg/dL LAB CHEMISTRY METHOD 08/12/2025 12:48 PM [facility] BUN 18 5 - 25 mg/dL LAB CHEMISTRY METHOD 08/12/2025 12:48 PM [facility] Creatinine 1.49(H) 0.70 - 1.30 mg/dL LAB CHEMISTRY METHOD 08/12/2025 12:48 PM [facility] eGFR 52(L) >=60 mL/min/1. 73m2 LAB CHEMISTRY METHOD 08/12/2025 12:48 PM [facility] Comment:Calculation based on the Chronic Kidney Disease Epidemiology Collaboration (CKD-EPI) equation refit without adjustment for race. BUN/Creatinine Ratio 12.1 LAB CHEMISTRY METHOD 08/12/2025 12:48 PM [facility] Calcium 9.5 8.5 - 10.5 mg/dL LAB CHEMISTRY METHOD 08/12/2025 12:48 PM [facility] Blood Venous blood specimen / Unknown Venipuncture / Unknown 08/12/2025 10:19 AM EDT 08/12/2025 10:19 AM EDT Marques Hardin MD LAB BLOOD ORDERABLES Final Resu lt ETHEL [facility] [address] [place] [address], [place] [phone] * Colonoscopy (04/04/2024) Colonoscopy abstracted, no interpretation Anatomical Region Laterality Modality Other Historical Provider HEALTH MAINTENANCE Final Result * HIV Screening (02/02/2024) Pathologist [facility] HIV Screening abstracted Historical Provider HEALTH MAINTENANCE Final Result * Hepatitis C Screening (02/02/2024) Pathologist [facility] Hepatitis C Screening abstracted Historical Provider HEALTH MAINTENANCE Final Result * Lipid panel (02/02/2024) Pathologist [facility] LDL/HDL Ratio 4 0 - 4 Triglycerides 115 0 - 150 mg/dL Cholesterol 162 0 - 200 mg/dL HDL 45 >=40 mg/dL LDL Cholesterol 94 0 - 100 mg/dL Blood Venous blood specimen / Unknown Historical Provider LAB BLOOD ORDERABLES Caren l Result from Last 3 Months or Most Recently Relevant to Health Maintenance Insurance [facility] [place] [phone] Care Teams Movie Actor Relationship Specialty Start Date End Date Marques Hardin MD [address] [place] [phone] PCP - General Internal Medicine 12/11/24
--- OUTSIDE RECORDS SUMMARY | 2025-10-04 10:30 | XMS_ITS | Encounter Summary ---
Author Organization [facility] Address [address] [place] [address] Care Team Providers Care Home Stereo Equipment Installer Name Role Phone Marques Hardin MD Primary Care Provider [phone] Reason for Visit * Reason Onset Date Comments Advice Only 09/23/2025 Encounter Details Date Type Department Care Team ([facility] st Contact Info) Description 09/23/2025 Results Follow-Up [address] [phone] Marques Hardin MD [address] [place] [address] Social History Tobacco Use Types Packs/Day Years [...] for your loved ones. For example, child custody evaluator or elderly care for an older adult? [...] on file documented as of this encounter Progress Notes * Manuela Carreno - 09/27/2025 10:59 AM EST Patient in office states he has blood again in the urine. Please advise documented in this encounter Plan of Treatment Upcoming Encounters Date Type Department Care Team (Late st Contact Info) Description 03/03/2026 11:30 AM EDT Office Visit [address] [phone] Marques Hardin MD [address] [place] [address] documented as of this encounter Visit Diagnoses Not on filedocumented in this encounter Additional Health Concerns Assessment Noted Time PHQ-9 Depression Total Score: 4 01/25/20 25 8:50 AM EDT documented as of this encounter Care Teams Home Stereo Equipment Installer Relationship Specialty Start Date End Date Marques Hardin MD [address] [place] [address] PCP - General Internal Medicine 12/11/24 documented as of this encounter
== END 2025-10-04 10:29 | disposition home or self-care (01) ==
LOC: HO.US 10:28
PROVIDERS: PCP Internal Medicine; Visit Provider Nurse Practitioner Family
DX: N20.0 Calculus of kidney (principal)
CPT/HCPCS: 76775

== ENCOUNTER → 2025-10-04 10:30 | Outpatient (BNV) | payer OTHER, SELFPAY | PROVIDERS: PCP Internal Medicine; Visit Provider Radiology Diagnostic Radiology | DX: N20.0 Calculus of kidney (principal); Z90.5 Acquired absence of kidney | CPT/HCPCS: 76775 ==

== ENCOUNTER 2025-10-14 08:30 | Outpatient (REF) | payer OTHER, SELFPAY ==
[2025-10-14 09:55] LABS: Blood Urea Nitrogen 19 mg/dL (9-16); Estimated Glomerular Filt Rate 47
[2025-10-14 10:19] LABS: Prostate Specific Antigen 1.61 ng/mL (<0.05-4.0)
== END 2025-10-14 08:31 | disposition home or self-care (01) ==
LOC: HO.LAB 08:30
PROVIDERS: PCP Internal Medicine; Visit Provider Nurse Practitioner Family
DX: C64.1 Malignant neoplasm of right kidney, except renal pelvis (principal); N40.1 Benign prostatic hyperplasia with lower urinary tract symptoms
CPT/HCPCS: 36415; 82565; 84153; 84520

== ENCOUNTER 2025-10-16 09:14 | Outpatient (REF) | payer OTHER, SELFPAY ==
--- NOTE | ~2025-10-16 | MR_ITS ---
CLINICAL HISTORY: C64.1 - Malignant neoplasm of right kidney, except renal pelvis --- Additional Notes or Special Instructions: hx of renal cancer s p right sided nephrectomy in 2017 MR abdomen with and without gadolinium Comparison: US - US RENAL BI - 10/04/25 10:[address]/SR - CT ABDOMEN PELVIS WITHOUT THEN WITH IV CONTRAST - 10/10/23 09:05 EST Findings: The heart is enlarged. Lung bases are grossly clear. Liver is normal in size. No loss of hepatic parenchymal signal on the out of phase images to suggest steatosis. A couple tiny hepatic cysts are present. No suspicious hepatic masses. The gallbladder, adrenal glands, and pancreas are unremarkable. A simple cyst along the superior medial aspect of the spleen measures up to 2.2 cm. Right nephrectomy is reidentified. No masses within the resection bed. Multiple left renal cysts are reidentified, some demonstrating intrinsic T1 hyperintensity which is suggestive of proteinaceous or hemorrhagic contents. No suspicious enhancing left renal masses. No left hydronephrosis. No bowel obstruction. Duodenal diverticulum. Colonic diverticulosis. Normal appendix. No evidence of intra-abdominal lymphadenopathy or ascites. Mild thoracolumbar dextrocurvature. Degenerative change of the spine which is most conspicuous at L5-S1. Mild bilateral hip osteoarthritis. IMPRESSION: 1. Right nephrectomy without evidence of recurrent disease. 2. Polycystic left kidney without definite suspicious mass. This document has been electronically signed by: Jorgito Rahman DO on 10/17/2025 11:56:57
== END 2025-10-16 09:15 | disposition home or self-care (01) ==
LOC: HO.MRI 09:14
PROVIDERS: PCP Internal Medicine; Visit Provider Nurse Practitioner Family
DX: C64.1 Malignant neoplasm of right kidney, except renal pelvis (principal); N28.1 Cyst of kidney, acquired; N40.1 Benign prostatic hyperplasia with lower urinary tract symptoms; R39.15 Urgency of urination
CPT/HCPCS: 74183; 81003; 99212; A9585

== ENCOUNTER → 2025-10-16 09:24 | Outpatient (BNV) | payer OTHER, SELFPAY | PROVIDERS: PCP Internal Medicine; Visit Provider Radiology Diagnostic Radiology | DX: N28.1 Cyst of kidney, acquired (principal); Z90.5 Acquired absence of kidney | CPT/HCPCS: 74183 ==

== ENCOUNTER 2025-10-16 10:24 | Outpatient (AMB) | payer OTHER, SELFPAY ==
--- NOTE | 2025-10-16 10:30 | MHC.OFFVIS ---
Intake Visit Reasons: 6M/US/Labs/UA Intake Note: Patient is present for 6M/US/LABS/UA PSA:1.61 IAMAGIN10/04/25 BUN:19 CREAT:1.50 Urology Medication:TADALAFIL,SOLIFENACIN Antibiotic Allergy:NONE Blood Thinner:NONE Journeyman Mechanic Required: No Allergies bee pollen (BEE STINGS) Allergy (Unknown, Verified 10/16/25 11:05) ANAPHYLAXIS lisinopril (LISINOPRIL) Adverse Reaction (Unknown, Verified 10/16/25 11:05) COUGH SEAFOOD Allergy (Unknown, Uncoded 10/16/25 11:05) ANAPHYLAXIS shrimp Allergy (Unknown, Uncoded 10/16/25 11:05) Unknown Medication List - Last Reconciled 10/16/25 by THOMAS Saucedo-IWONA cetirizine 10 mg PO DAILY epinephrine 1 IM DIRECTED fluticasone propionate 50 mcg/actuation 1 spray intranasal BID hydrochlorothiazide 25 mg PO DAILY losartan 25 mg PO DAILY metoprolol succinate ER 100 mg PO DAILY multivitamin 1 tab PO DAILY solifenacin (Vesicare) 5 mg PO DAILY 30 days tadalafil 5 mg PO DAILY PRN 90 days HPI Comments Details: Mr. Pierson is very pleasant 65-year-old male patient of Dr. Hardin. He has a past medical history of obesity, hypertension, renal cancer, nephrolithiasis, BPH, and erectile dysfunction. In discussion with the patient today he reports to be doing and feeling well. He discusses having recently followed up with his PCP in underwent treatment for Trichomonas. He reports having completed treatment for Trichomonas and has been feeling well. He denies having had any bothersome urinary issues or concerns. He continues with low-dose Cialis as well as VESIcare and feels this has been helpful with his lower urinary tract symptoms. Most recent renal imaging results reviewed with the patient today. 10/01 renal ultrasound notes right kidney is surgically absent. Similar-appearing left renal cysts measuring 2.1 cm, 2.6 cm, and 2.9 cm. Which appears grossly simple per radiology report. During last office visit recommendations were made for MRI renal mass protocol as well as chest x-ray however MRI was done earlier this morning and remains pending chest x-ray has not yet been completed. We did discussed importance of completing and following up as planned. He continues to follow-up with his PCP and Health Promotion Officer Dr. Soto. He denies hematuria, dysuria, foul smelling urine, changes to urinary stream, flank pain, fever, and or chills. In office urinalysis results reviewed with the patient today. Labs are as follows: PSA: 01/26 1.6, 10/29 1.5, 10/30 1.3, 10/31 1.6 BUN: 05/29 15, 10/30 21, 01/29 16, 10/31 19 Creatinine: 05/29 1.38, 10/30 1.39, 01/29 1.39, 10/31 1.50 PREVIOUS OFFICE NOTE Renal cancer - right nephrectomy 2016 pT2 grade 2 They present for continued followup and management, left side, renal cancer. The renal mass was diagnosed incidentally, during evaluation for, GI symptoms. Imaging included 11/21 , a CT (computed tomography) scan of the abdomen/pelvis - 6cm renal complex cyst without enhancement 12/24 - , a CT (computed tomography) scan of the abdomen/pelvis - no contrast - renal cyst on right kidney lower pole. 12/24 - MRI with contrast - enhancement of posterior wall of renal cyst, 8.5 cm 05/23 , an MRI of the abdomen - renal cyst with enhancement enhancement of rim 02/22 , a CT (computed tomography) scan of the abdomen/pelvis, no issues, left 1.0cm stone 07/25 , a renal ultrasound left 1cm stone, 1cm cyst 12/27 , a renal ultrasound left 1 cm cyst, 06/26 chest x-ray normal - 12/28 renal ultrasound no stones, 07/28 chest x-ray normal - 12/29 renal ultrasound left renal cyst x3 with 4 mm stone - 06/28 renal ultrasound left renal cyst x3, no stone Prior treatment(s) included surveillance 08/23 , nephrectomy, right. Staging of initial cancer 08/23 , T2, with no positive lymph nodes, without vena cava involvement, without metastasis. The diagnosis was 08/23 , renal cell carcinoma, Grade II. Current symptoms include hematuria No dysuria No fever No chills No Recent labs include 08/23 Preop , a creatinine 1.3. Planned therapeutic plan further surveillance with imaging and laboratory investigations appropriate for pathology findings and patient performance status. Nephrolithiasis/Urolithiasis: No stones Responding to Viagra for UD Hernia well-healed. They are here for further evaluation of nephrolithiasis. They present for evaluation of back pain none flank pain none abdominal pain none The patient previously had kidney stones whose composition w 10/24 , calcium oxalate - monohydrate 80%. Laboratory investigations include no recent labs. 24 Hour urine evaluation 10/24 , Good Volume > 2.00 L, Low calcium < 200, High Citrate - , High Sodium (> 100mEq), High oxalate > 30mg 05/25 Volu 1.2, Na 208, Oxalate 48. Prior treatment(s) include 09/24 , left, ureteroscopy. Prior imaging includes 03/24 , a CT (computed tomography) scan of the abdomen/pelvis (stone protocol), showing radiodense stone(s) 1.0cm on left side 10/24 , a renal ultrasound 6mm left renal 04/25 , a renal ultrasound no stones. The stone's maximum size is 5-10mm. Current therapeutic plan will be to continue with imaging surveillance PFSH Medical History Chronic rhinitis Dyspnea MALI on CPAP Poor urinary stream Benign prostatic hyperplasia with lower urinary tract symptoms Malignant neoplasm of right kidney Renal mass Complex renal cyst Surgical History Hx of hernia repair Hx of kidney removal Social History Alcohol intake: current Alcohol intake frequency: a few times a week Patient Tobacco Use Status: Never used Tobacco Review of Systems Const All systems reviewed & are unremarkable except as noted in HPI and below Eyes Reports no additional complaints ENT Reports no additional complaints Card Reports as per HPI Resp Reports no additional complaints GI Reports as per HPI Reports as per HPI Musc Reports no additional complaints Neuro Reports no additional complaints Psych Reports no additional complaints Endo Reports no additional complaints Jeyson/Lymph Reports no additional complaints Aller/Immun Reports no additional complaints Physical Exam Const General: cooperative, healthy appearing, comfortable, no acute distress, well developed, alert and awake Nutritional Appearance: overweight Orientation/consciousness: patient oriented x3 Limitations: no limitations HEENT Head: Yes normal to inspection, Yes normocephalic and Yes atraumatic Ears: hearing grossly normal bilaterally Eyes General: appearance normal, both eyes and all related structures Neck Neck: Yes normal visual inspection and Yes trachea midline Chest Chest palpation & inspection: normal inspection of the chest Resp Effort & Inspection: normal respiratory effort and able to speak in complete sentences Cardio Rate: regular rate GI Inspection: Yes normal to inspection General: Yes no CVA tenderness Back/Spine/Pelvis Back: no CVA tenderness Skin General skin exam: no rashes or lesions noted Neuro General: patient oriented x3 Extrem General: Yes normal to inspection Psych Appearance: grossly normal and well kempt Mental Status: mental status grossly normal Speech and movement: Normal speech and movement present and Clear speech present Affect: normal affect Attitude: cooperative Thought process: Normal thought process present Thought content: Normal thought content present Insight: Good insight present (Psych) Judgement: Good judgement present (Psych) Results AMB Urinalysis, Automated UA Leukoctes 0 [place]/uL Last Edit by MILLICENT Pierce on 10/16/25 10:43 UA Nitrite Negative Last Edit by Killian Campa CCM on 10/16/25 10:43 UA Urobilinogen 0.2 mg/dL Last Edit by MILLICENT Pierce on 10/16/25 10:43 UA Protein 15 mg/dL Last Edit by MILLICENT Pierce on 10/16/25 10:43 UA pH 6.0 Last Edit by Killian Campa CCM on 10/16/25 10:43 UA Blood 0 Fam/uL Last Edit by MILLICENT Pierce on 10/16/25 10:43 UA Specific [place] 1.025 Last Edit by MILLICENT Pierce on 10/16/25 10:43 UA Ketone Negative Last Edit by MILLICENT Pierce on 10/16/25 10:43 UA Bilirubin 0 mg/dL Last Edit by MILLICENT Pierce on 10/16/25 10:43 UA Glucose 0 mg/dL Last Edit by Killian Campa CCM on 10/16/25 10:43 Results Reviewed Results Reviewed: Laboratory Last Values Urine pH (Auto) 6.0 10/16/25 10:36 Specific [place] (Auto) 1.025 10/16/25 10:36 Urine Protein (Auto) 15 mg/dL 10/16/25 10:36 Glucose (UA)(Auto) 0 mg/dL 10/16/25 10:36 Urine Ketones (Auto) Negative 10/16/25 10:36 Urine Blood (Auto) 0 Fam/uL 10/16/25 10:36 Urine Nitrite (Auto) Negative 10/16/25 10:36 Urine Bilirubin (Auto) 0 mg/dL 10/16/25 10:36 Urine Urobilinogen (Auto) 0.2 mg/dL 10/16/25 10:36 Leukocyte Esterase (Auto) 0 [place]/uL 10/16/25 10:36 Date of Service: 10/04/25 Procedure(s): US renal BI Findings: Right kidney is surgically absent. Left kidney normal size and echotexture, 14.6 cm length. No hydronephrosis. Normal color flow. Multiple cysts are re-identified, including lateral grossly similar-appearing interpolar cyst measuring 2 x 1 x 2.1 x 2.1 cm, additional interpolar cyst measuring 2.6 x 2.4 x 2.3 cm which appears grossly simple, exophytic upper pole cyst measuring 2.9 x 2.6 x 2.4 cm which appears grossly simple (previously 2.8 cm). Impression: 1. Similar-appearing left renal cysts as described above. 2. Prior right nephrectomy. Assessment & Plan Assessment & Plan (1) Malignant neoplasm of right kidney: Comment: Nephrectomy 2017 Code(s): C64.1 - Malignant neoplasm of right kidney, except renal pelvis Category: Medical (2) Renal cyst: Code(s): N28.1 - Cyst of kidney, acquired Category: Medical (3) Benign prostatic hyperplasia with lower urinary tract symptoms: Code(s): N40.1 - Benign prostatic hyperplasia with lower urinary tract symptoms Category: Medical Plan In office urinalysis results reviewed with the patient today; as noted above. Recent Creatinine/BUN results reviewed with the patient today; as noted above. He currently denies any bothersome urinary issues or concerns. He reports be happy with current voiding parameters on low daily dose of tadalafil as well as VESIcare; will continue. Continue to follow-up with nephrology as planned. Will continue surveillance monitoring of renal cancer. Will await MRI results. We discussed importance of obtaining chest x-ray as planned. Will obtain PSA, BUN, and creatinine in 6 months Will obtain renal ultrasound in 6 months Follow-up in 6 months with imaging, labs, and PVR to be completed prior; or sooner with any issues, concerns, and or questions. Orders: Orders AMB Urinalysis Automated Today Z13.9 - Encounter for screening, unspecified Blood Urea Nitrogen 6 Months R39.15 - Urgency of urination Creatinine 6 Months R39.15 - Urgency of urination US renal BI 6 Months C64.1 - Malignant neoplasm of right kidney, except renal pelvis, N28.1 - Cyst of kidney, acquired Prostate Specific Antigen 6 Months N40.1 - Benign prostatic hyperplasia with lower urinary tract symptoms Patient Instructions: The patient had an opportunity to ask questions regarding the treatment plan. All questions were answered. Physical exam, labs, and imaging were discussed and reviewed in detail. As well as risks, benefits, and discussion of treatment choices. No major barriers to understanding were identified. The patient expressed understanding and agreement with the above treatment plan. The patient was made aware they should contact our office by phone for worsening of their current condition, the appearance of new symptoms, or with any questions or concerns. Compliance is encouraged with any medications and follow up testing that is ordered. It is a privilege to be allowed the opportunity to participate in? your urological care.? Again, if you have any questions or concerns If you have any questions or concerns please do not hesitate to contact me. The office is [phone]. This note is constructed using voice recognition software. While every effort has been made to ensure accuracy filler mixer errors may have been included. Yours sincerely, JUAN Saucedo Coding Level of Care Code Est Pt Level 3 (08537) Add On Problem Visit Only Diagnoses Malignant neoplasm of right kidney C64.1 Renal cyst N28.1 Benign prostatic hyperplasia with lower urinary tract symptoms N40.1
== END 2025-10-16 11:06 | disposition home or self-care (01) ==
PROVIDERS: PCP Internal Medicine; Visit Provider Nurse Practitioner Family
DX: C64.1 Malignant neoplasm of right kidney, except renal pelvis (principal); N28.1 Cyst of kidney, acquired; N40.1 Benign prostatic hyperplasia with lower urinary tract symptoms; Z13.9 Encounter for screening, unspecified
CPT/HCPCS: 99213